=== PATIENT | female | born 1950 | race Caucasian/White ===

== ENCOUNTER → 2018-04-28 12:23 | Outpatient (CLI) | payer MEDICARE, OTHER, SELFPAY ==
--- NOTE | 2018-04-28 12:39 | STEWCON_ITS ---
Reason For Study: Family HX of CAD, Chest Pain Stress Results Protocol: Viraj Protocol Maximum Predicted HR: 154 bpm Target HR: 131 bpm% Max imum Predicted HR: 118 % DurationHeart Rate Stage (mm:ss) (bpm) BPCom ment Baseline 59 156/88 Diluted Definity 2 ML Given; No Chest Pain Viraj Protocol Stage I 3:00 12 1 170/84No Chest Pain Viraj Protocol Stage II 3:00 12 0 180/86No Chest Pain Viraj Protocol Stage III 3:00 15 3 190/82No Chest Pain Viraj Protocol Stage IV 1:00 18 1 / No Chest Pain Recovery 94 150/90 No Chest Pain Stress Duration: 10:00 mm:ss Maximum Stress HR: 181 bpmME TS: 13 Baseline Echocardiogram Findings Stress Echo Wall motion Data Resting WMIntermediate WMStress WM Resting Wall Motion Wall Motion Stress No regional wall motion No regional wall motion abnormalities noted. abnormalities noted. Ejection Fraction 55 %. Ejection Fraction 65 %. Stress Results Normal blood pressure response to exercise. Exercise was stopped due to leg pain. Interpretation Summary Exercise stress echo. Resting EKG demonstrates normal sinus rhythm with a rate of 61 bpm, resting blood pressure 156/88 mmHg. The patient exercised according to the regular Viraj protocol for a total duration of 10 minutes completing 1 minute into stage IV of the Viraj protocol. The maximum heart rate attained was 181 bpm which was 117% of maximum predicted heart rate. The maximum workload was 13.1 metabolic equivalents. At rest there were no ST or T wave changes noted suggest ischemia at peak exercise upsloping ST changes only were noted with no meet the criteria for ischemia. No clinical angina was noted occasional premature ventricular complex was present. The resting blood pressure was 156/88 with a peak blood pressure 198/84 mmHg. Resting echocardiogram demonstrates an ejection fraction of 55% performed with Definity. At peak exercise the ejection fraction improved to 65-70%. No wall motion abnormalities were present. Conclusion: Normal exercise stress test with no EKG criteria for ischemia at a high workload. Excellent functional aerobic capacity. Normal resting and stress echocardiographic images Ordering Physician: Luis A Cramer Referring Physician: Brenton Saul Performed By: Adriana Chin RDCS, RVT
== END ==
PROVIDERS: Family Provider Family Medicine; PCP Family Medicine; Referring Provider Family Medicine; Visit Provider Family Medicine
DX: R07.9 Chest pain, unspecified (principal)
CPT/HCPCS: 93017; 93350; Q9957; A4216; C8928

== ENCOUNTER → 2018-05-13 13:41 | Outpatient (CLI) | payer MEDICARE, OTHER, SELFPAY ==
[2018-05-13 13:48] VITALS: BP 153/82; PULSE 56; RESP 18; O2SAT 99; BMI 29.2
--- NOTE | 2018-05-13 13:48 | CT_ITS ---
STUDY: CT CHEST WITHOUT CONTRAST REASON FOR EXAM: Female, 68 years old. Chest pain. Cardiac over read examination. RADIATION DOSAGE (If Supplied By Facility): CTDIvol = ( 12.19 ) mGy, DLP = ( 195.04 ) mGycm TECHNIQUE: Transaxial imaging was performed without the administration of intravenous contrast material. # of Images: 73 Individualized dose optimization techniques were used for this CT. COMPARISON: None. FINDINGS: The lungs are normal. There is no demonstrated pleural abnormality. There are calcifications of the coronary arteries. There are multiple small lymph nodes within the mediastinum, which are normal in size and morphology most compatible with reactive lymph hyperplasia. Normal hilar regions. Normal unenhanced pulmonary arteries. There is atherosclerotic calcification of the aortic arch. There are degenerative changes of the thoracic spine. There is no demonstrated abnormality of the visualized upper abdomen. CT/Limited Chest CT w/CCTA IMPRESSION: No acute abnormality is seen. Electronically Signed: Alberto Pelaez MD at 13:38 EDT Tel [phone], Service support ,
--- NOTE | 2018-05-13 16:41 | CA.SCORE ---
Calcium Scoring Date of Study:: 05/13/18 Coronary Calcium Scoring: Coronary calcium score. High-resolution computed tomographic imaging of the chest was performed on 05/13/2018 with particular attention paid to the coronary arteries. Images of the examination were analyzed for the presence and extent of coronary calcification. The coronary calcium calcifications software was utilized. The patient tolerated the procedure well and there were no complications. The results of the coronary calcification analysis demonstrated that there was coronary calcification noted in the left anterior descending artery as well as the circumflex artery. The right coronary artery was free of significant coronary calcification. The total calcium Agagston score was noted to be 171 placing the patient in the 75th to the 90th percentile. The above score suggests moderate plaque burden and moderate nonobstructive coronary disease likely. Conclusion: Coronary calcium score 171 Moderate nonobstructive coronary disease likely.
--- NOTE | 2018-05-13 16:44 | CCTA_ITS ---
Calcium Scoring Date of Study:: 05/13/18 Coronary Calcium Scoring: Coronary calcium score. High-resolution computed tomographic imaging of the chest was performed on 05/13/2018 with particular attention paid to the coronary arteries. Images of the examination were analyzed for the presence and extent of coronary calc ification. The coronary calcium calcifications software was utilized. The patient tolerated the procedure well and there were no complications. The results of the coronary calcification analysis demonstrated that there was coronary calcification noted in the left anterior descending artery as well as the circumflex artery. The right coronary artery was free of significant coronary calcification. The total calcium Agagston score was noted to be 171 placing the patient in the 75th to the 90th percentile. The above score suggests moderate plaque burden and moderate nonobstructive coronary disease likely. Conclusion: Coronary calcium score 171 Moderate nonobstructive coronary disease likely.
== END ==
PROVIDERS: Family Provider Family Medicine; PCP Family Medicine; Referring Provider Family Medicine; Visit Provider Family Medicine
DX: R07.89 Other chest pain (principal); Z82.49 Family history of ischemic heart disease and other diseases of the circulatory system
CPT/HCPCS: 75571; 76380

== ENCOUNTER → 2018-05-28 10:44 | Outpatient (CLI) | payer MEDICARE, OTHER, SELFPAY ==
[2018-05-28 12:41] LABS: Cholesterol 196 mg/dL (200); Triglycerides 96 mg/dL
[2018-05-28 12:42] LABS: High Density Lipoprotein 69 mg/dL; Very Low Density Lipoprotein 19 mg/dL (5-40)
== END ==
PROVIDERS: Family Provider Family Medicine; PCP Family Medicine; Referring Provider Internal Medicine Cardiovascular Disease; Visit Provider Internal Medicine Cardiovascular Disease
DX: R07.9 Chest pain, unspecified (principal)
CPT/HCPCS: 36415; 80061

== ENCOUNTER → 2018-11-27 14:04 | Outpatient (CLI) | payer MEDICARE, OTHER, SELFPAY ==
[2018-11-27 13:06] VITALS: BMI 31.9
[2018-11-27 18:18] LABS: AST(SGOT) 20 U/L (15-37); Alanine Aminotransfer ALT/SGPT 29 U/L (13-56); Albumin, Serum 3.9 g/dL (3.2-5.0); Alkaline Phosphatase 67 U/L (45-117); Bilirubin, Direct 0.14 mg/dL (0.00-0.30); Cholesterol 198 mg/dL (200); Globulin 3.2 g/dL (2.2-4.2); High Density Lipoprotein 83 mg/dL; Protein, Total 7.1 g/dL (6.4-8.2); Triglycerides 54 mg/dL; Very Low Density Lipoprotein 11 mg/dL (5-40)
== END ==
PROVIDERS: Family Provider Family Medicine; PCP Family Medicine; Visit Provider Internal Medicine Cardiovascular Disease
DX: E78.9 Disorder of lipoprotein metabolism, unspecified (principal); I10 Essential (primary) hypertension; R07.9 Chest pain, unspecified
CPT/HCPCS: 36415; 80061; 80076

== ENCOUNTER → 2019-08-10 10:10 | Outpatient (CLI) | payer MEDICARE, OTHER, SELFPAY ==
[2018-11-27 13:06] VITALS: BMI 31.9
--- NOTE | 2019-08-10 10:15 | BI_ITS ---
MAMMOGRAPHY - BILATERAL SCREENING REASON FOR EXAM: Female, 69 years old. Routine annual screening examination. PERTINENT HISTORY: Non-contributory. TECHNIQUE: Digital bilateral breast padmini (3D mammographic acquisition) in the CC and MLO projections. 2-D mediolateral oblique (MLO) and craniocaudad (CC) views of both breasts were obtained. CAD: Full Field Digital Mammography with Computer Added Detection was performed. COMPARISON: Comparison is made with prior examination dated August 10, 2015. FINDINGS: Breast Composition: The breasts are heterogeneously dense, which may obscure small masses. There are no dominant masses or suspicious calcifications. Stable benign-appearing axillary lymph nodes. No other significant abnormalities are identified. There has been no significant change since the prior study. BI/SCREEN MAMM (CAD) W/PADMINI BILAT IMPRESSION: Stable bilateral screening mammogram. Yearly follow-up mammogram recommended. (A) ASSESSMENT CATEGORY: BIRADS Category 2: Benign. A letter regarding these results will be sent to the patient by the facility within 30 days. Approximately 10% of breast cancers are not detected by mammography. A normal mammogram should not delay biopsy of a clinically suspicious abnormality. [id number] Electronically Signed: Albreto Pelaez, at 11:20 EST , Service support ,
== END ==
PROVIDERS: Family Provider Family Medicine; PCP Family Medicine; Referring Provider Nurse Practitioner Family; Visit Provider Nurse Practitioner Family
DX: Z12.31 Encounter for screening mammogram for malignant neoplasm of breast (principal)
CPT/HCPCS: 77063; 77067

== ENCOUNTER → 2019-08-24 | Outpatient (CLI) | payer MEDICARE, OTHER, SELFPAY ==
--- NOTE | 2019-08-24 13:30 | ASPS_PTH ---
PATIENT: LUIS RYAN LOC: [facility] U#:[id number] AGE/SX: 69/F ROOM: RE08/24/[address]: Dr. Roney Cramer MD : 1950 BED: DIS: 08/24/2019 SPEC #: [id number] RECD: 08/24/19 15:49 STATUS: TUTU REJuan Jose #: [id number] EPIFANIO: 08/24/19 13:[address]: Roney Cramer DEPT: CYTOLOGY RECD BY: Justus Mendoza ENTERED: 08/25/19 09:47 SP TYPE: ASPIRATION OTHR DR: Dr. Luis A Cramer III, MD Tissues: Thyroid gland, NOS Procedures: Special Stain Group II Cytology Other HEADER OPERATION: Left thyroid FNA PRE-OP DIAGNOSIS: Left thyroid nodule TISSUE SUBMITTED: Fine needle aspiration left thyroid (10 slides) DIAGNOSIS CYTOLOGY Left thyroid nodule, FNA (smears): Benign, consistent with chronic lymphocytic thyroiditis. Adequate for evaluation. SJ:deniz 08/26/19 COMMENT Correlation with clinical, radiologic findings and appropriate follow up are necessary. CYTOLOGY STUDY Slides are reviewed. CYTOLOGY GROSS Received are ten smears labeled with the patient's name and designated per the requisition as left thyroid. Submitted for staining. / deniz 08/25/19 TC:5 CPT: 82132
[2019-08-24 13:31] VITALS: BMI 29.6
== END | disposition home or self-care (01) ==
LOC: LABSPEC 15:59
PROVIDERS: PCP Family Medicine; Referring Provider Surgery; Visit Provider Surgery
DX: E04.1 Nontoxic single thyroid nodule (principal)
CPT/HCPCS: 88161; 88313

== ENCOUNTER → 2019-11-23 09:27 | Outpatient (CLI) | payer MEDICARE, OTHER, SELFPAY ==
[2019-08-24 13:31] VITALS: BMI 29.6
[2019-11-23 10:10] LABS: AST(SGOT) 18 U/L (15-37); Alanine Aminotransfer ALT/SGPT 25 U/L (13-56); Albumin, Serum 3.7 g/dL (3.2-5.0); Alkaline Phosphatase 72 U/L (45-117); Bilirubin, Direct 0.14 mg/dL (0.00-0.30); Cholesterol 180 mg/dL (200); Globulin 3.4 g/dL (2.2-4.2); High Density Lipoprotein 76 mg/dL; Protein, Total 7.1 g/dL (6.4-8.2); Triglycerides 69 mg/dL; Very Low Density Lipoprotein 14 mg/dL (5-40)
== END ==
PROVIDERS: PCP Family Medicine; Referring Provider Internal Medicine Cardiovascular Disease; Visit Provider Internal Medicine Cardiovascular Disease
DX: E78.5 Hyperlipidemia, unspecified (principal); E04.2 Nontoxic multinodular goiter; E06.9 Thyroiditis, unspecified
CPT/HCPCS: 36415; 80061; 80076

== ENCOUNTER → 2020-01-26 08:22 | Outpatient (CLI) | payer MEDICARE, OTHER, SELFPAY ==
[2019-12-01 12:39] VITALS: BMI 30.4
--- NOTE | 2020-01-26 08:30 | BD_ITS ---
STUDY: DUAL ENERGY X-RAY ABSORPTIOMETRY / DXA REASON FOR EXAM: Female, 69 years old. 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 COMPARISON: None. FINDINGS: Lumbar Spine (L1-L4): g/cm2 (1.1) / T-score (-0.7) / Z-score (1.0) Findings are suggestive of normal bone density with a low fracture risk. Left Femur Total: g/cm2 (0.885) / T-score (-1.0) / Z-score (0.4) Left Femoral Neck: g/cm2 (0.851) / T-score (-1.3) / Z-score (0.2) Right Femur Total: g/cm2 (0.866) / T-score (-1.1) / Z-score (0.2) Right Femoral Neck: g/cm2 (0.775) / T-score (-1.9) / Z-score (0.3) BD/Dexa Bone Density Study IMPRESSION: The patient is considered osteopenic as outlined below according to World Ko Organization (WHO) criteria with a moderate fracture risk. Reference Information: The T-score is the number of standard deviations above or below the standard which is normal for young adults at their peak bone mineral density. The World Health Organization (WHO) interprets the T-scores as follows: Above -1 Normal bone density Between -1 and -2.5 Osteopenia Equal to / or below -2.5 Osteoporosis As a practical clinical guideline, osteopenia may be graded as follows: Mild -1 through -1.5 Moderate -1.6 through -2.0 Severe -2.1 through -2.4 The Z-score is the number of standard deviations above or below age-matched controls. A Z-score of less than -1.5 would be considered abnormal. References: 1. NIH Osteoporosis and Related Bone Diseases http://www.osteo.org 2. International Society for Clinical Densitometry http://www.iscd.org 3. National Osteoporosis Foundation http://www.nof.org Electronically Signed: Alberto Pelaez, at 12:58 EDT , Service support ,
== END ==
PROVIDERS: PCP Family Medicine; Referring Provider Family Medicine; Visit Provider Family Medicine
DX: M81.0 Age-related osteoporosis without current pathological fracture (principal)
CPT/HCPCS: 77080

== ENCOUNTER → 2020-02-12 12:35 | Outpatient (CLI) | payer MEDICARE, OTHER, SELFPAY ==
[2019-12-01 12:39] VITALS: BMI 30.4
[2020-02-12 15:07] LABS: Absolute Lymphocyte Count 2.05 X10^3/uL (0.83-4.51); Absolute Neutrophil Count 2.2 X10^3/uL (2.0-7.7); Basophil# 0.03 X10^3/uL; Basophil% 0.6 % (0-1); Eosinophil# 0.18 X10^3/uL; Eosinophils% 3.6 % (0-5); Hematocrit 41.6 % (37-47); Hemoglobin 13.2 g/dL (12.0-15.0); Lymphocyte # 2.05 X10^3/ul (4.0); Lymphocyte % 41.5 % (19-41); Mean Corp Hgb Conc 31.7 g/dL (32-36); Mean Corpuscular Hgb 31.1 pg (27.0-32.0); Mean Corpuscular Volume 97.9 fL (81-99); Monocyte# 0.43 X10^3/uL; Monocyte% 8.7 % (0-10); NRBC Flagged by Analyzer 0 % (0-5); Neutrophil # 2.24 X10^3/uL (2.7-7.7); Neutrophil % 45.4 % (47-70); Platelet Count 197 K/mm3 (150-450); RBC Distribution Width CV 13.1 % (11.6-14.6); RBC Distribution Width SD 46.7 fl (35.1-43.9); Red Blood Count 4.25 M/mm3 (4.2-5.4); White Blood Count 4.9 K/mm3 (4.4-11.0)
[2020-02-12 15:29] LABS: Vitamin D,25 Hydroxy 77.5 ng/mL
[2020-02-12 15:31] LABS: ALB/GLOB Ratio 1.1 RATIO (0.9-2.4); AST(SGOT) 18 U/L (15-37); Alanine Aminotransfer ALT/SGPT 32 U/L (13-56); Albumin, Serum 3.7 g/dL (3.2-5.0); Alkaline Phosphatase 78 U/L (45-117); Anion Gap 6 (5-15); BUN 16 mg/dL (7-18); BUN/Creat Ratio 23.5 RATIO (10-20); Calcium,Total 8.9 mg/dL (8.5-10.1); Chloride 103 mmol/L (98-107); Creatinine, Serum 0.68 mg/dL (0.55-1.02); EST Glomerular Filtration Rate 92 mL/min (>60); Est Glom Filt Rate - Afr Amer 111 mL/min (>60); Globulin 3.5 g/dL (2.2-4.2); Glucose 88 mg/dL (74-106); Potassium 3.7 mmol/L (3.5-5.1); Protein, Total 7.2 g/dL (6.4-8.2); Sodium Level 138 mmol/L (136-145); T4 Free Direct 1.24 ng/dL (0.76-1.46)
[2020-02-12 15:43] LABS: Microalbumin,Random Urine 6.1 mg/L (NO RANGE EST.); Microalbumin:Creatinine Ratio 5.5 mg/g CRE (<30 mg/g CRE)
[2020-02-17 03:48] LABS: Anti-Thyroglobulin AB < 1.0 IU/mL (0.0-0.9); Thyroglobulin, Serum Qt. 102.9 ng/mL (1.5-38.5); Thyroid Peroxidase AB 95 IU/mL (0-34); Zinc, Plasma or Serum 67 ug/dL (56-134)
== END ==
PROVIDERS: PCP Family Medicine; Referring Provider Family Medicine; Visit Provider Family Medicine
DX: E03.9 Hypothyroidism, unspecified (principal); E60 Dietary zinc deficiency; I10 Essential (primary) hypertension; M19.049 Primary osteoarthritis, unspecified hand
CPT/HCPCS: 36415; 80053; 82043; 82306; 82570; 84432; 84439; 84443; 84481; 84630; 85025; 86376; 86800

== ENCOUNTER 2020-02-25 07:55 | Outpatient (RCR) | payer MEDICARE, OTHER, SELFPAY ==
[2019-12-01 12:39] VITALS: BMI 30.4
--- NOTE | 2020-02-25 12:44 | HP.OTEVAL_ITS ---
Patient's Visit Information LUIS RYAN is a 69 year old F, referred to Occupational Therapy by Dr. Zack Hinds MD, with a diagnosis of bilateral hand Arthritis. Date of Evaluation: 02/25/20 Occupational Therapist: Heidy Street, OTR/Julianne, CHT - Subjective This 69 year old female was seen for OT eval with dx of bilateral hand a rthritis. pt states for the past two years. 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 pt states she is right handed. pt states she can not closer her hands with anything. pt has made accomidations for opening jars and bottle tops with use of rubber grippers. - Pain bilateral hands 3 Pain Intensity Range: 1, 6 - ROM ROM Comments: right IF mcp 0/70 PIP 0/110 DIP 0/25 left MCP 0/60 PIP 0/90 DIP 0/40. right MF MCP 0/70 PIP 0/105 DIP 0/30 Left MCP 0/75 PIP 0/80 DIP -15/40. right RF MCP 0/75 PIP 0/90 DIP 0/45 Left MCP 0/70 PIP 0/75 DIP 0/40. right LF MCP 0/80 PIP -15/85 DIP -15/40 left MCP 0/85 PIP 0/75 DIP 0/60 - Strength Judicial [employer] Clerk: right 45# left 34# Lateral Pinch: right 12# left 12# Tripod Pinch: right 10# left 10# Strength Comments: pt demo fair stregnt - Edema PIP: right MF 6.5 left 6.8 Proximal Phalanx: right 19.5cm left 18cm - Quick DASH-Disab of Arm,Shoulder& Hand Quick DASH Score: 27.2725 - Goals Goal:: pt will demo a increase in joint ROM by 10* to increase pts functional use of ADLs and IADLs by d/c Goal:: pt will report a decrease in bilateral hand pain no greater than 1/10 with ADLS and IADLS by d/c Goal:: Pt will demo understanding of edema control techniques by end of 2nd session and perform recommendations to control edema. Goal:: Pt will demonstrate understanding of joint protection and adaptive equipment to decrease joint stress while performing ADL tasks by d/c. pt will demo understanding of ergonomic tools to assist with gardening tasks by end of 2nd session. - Rehabilitation General Assessment: Pt demo with arthritis in bilateral hands that limit pts grasp on different size objects. Pt would benefit from skilled OT services 1x week for 3-4 weeks. Today therapist ed. pt on joint protection, ad. eq and light ROM ex to increase pts ROM for ADLs and IADLs. pt demo understanding and agree to POC Rehabilitation Potential: Good - Anticipated Interventions A/AAROM/PROM, Strengthening, Edema Control, Triggerpoint Release, Modalities, Orthoses, Joint Protection/Energy Conservation, Fine Motor Coord/Agustín, Education re assistive Equipment, Education re Diagnosis, Home Program - Visit Plan Frequency: 1x/Week Duration: 2-4 Weeks General Plan: therapsit will cont to work with pt on ed. pt on ad. eq. and joint protection erika. with daily occupations. Therapist provided PROM and AROM ex for digits and as pt gains increase in ROM will initiate PRE as long as strengthening does not increase pts pain. pt demo understanding. TEXT: Thank you for the opportunity to evaluate your patient. For Medicare and Medicare HMO plans, please review the plan of care and approve it. It will need to be FAXED BACK to us at [phone] for Medicare purposes. Please let me know if there are questions or concerns regarding this plan of care. Physician Signature: Date:
== END 2020-02-25 19:00 | disposition home or self-care (01) ==
LOC: OT 07:55
PROVIDERS: PCP Family Medicine; Referring Provider Family Medicine; Visit Provider Family Medicine
DX: M19.049 Primary osteoarthritis, unspecified hand (principal)
CPT/HCPCS: 97140; 97166

== ENCOUNTER → 2020-04-25 08:24 | Outpatient (CLI) | payer MEDICARE, OTHER, SELFPAY ==
[2019-12-01 12:39] VITALS: BMI 30.4
[2020-04-25 10:17] LABS: Free T3 2.5 pg/mL (2.18-3.98); T4 Free Direct 0.99 ng/dL (0.76-1.46); T4 Total, Thyroxin 7.7 ug/dL (4.8-13.9); Thyroid Stim Hormone (TSH) 1.32 uIU/mL (0.358-3.74)
[2020-04-26 21:12] LABS: Anti-Thyroglobulin AB < 1.0 IU/mL (0.0-0.9); Thyroid Peroxidase AB 88 IU/mL (0-34)
== END ==
PROVIDERS: PCP Family Medicine; Referring Provider Family Medicine; Visit Provider Family Medicine
DX: E04.1 Nontoxic single thyroid nodule (principal)
CPT/HCPCS: 36415; 84432; 84436; 84439; 84443; 84481; 86376; 86800

== ENCOUNTER → 2020-07-04 09:57 | Outpatient (CLI) | payer MEDICARE, OTHER, SELFPAY ==
[2019-12-01 12:39] VITALS: BMI 30.4
--- NOTE | 2020-07-04 09:58 | US_ITS ---
STUDY: THYROID ULTRASOUND REASON FOR EXAM: Female, 70 years old. MNG TECHNIQUE: Ultrasound evaluation of the thyroid was performed with real-time and static varghese-scale imaging. COMPARISON: None. FINDINGS: RIGHT LOBE: The right lobe of the thyroid gland measures 2.8 cm x 0.9 cm x 0.9 cm. There is a heterogeneous echotexture. There are no demonstrated solid, cystic or complex lesions. LEFT LOBE: The left lobe of the thyroid gland measures 2.7 cm x 2 cm x 1.5 cm. There is a heterogeneous echotexture. There is a 2.1 cm x 1.8 cm x 1.2 cm heterogeneous hypoechoic solid nodule in the left lobe of thyroid. Intranodular and perinodular increased vascularity is seen. There is also evidence of a slightly echogenic nodule with posterior shadowing measuring 7 mm x 6 mm x 6 mm. ISTHMUS: The isthmus measures 2.0 mm. The regional lymph nodes are normal. US/Thyroid IMPRESSION: Dominant heterogeneous hypoechoic solid nodule in the left lobe of the thyroid with increased nodular and perinodular vascularity. This measures 2.1 cm x 1.8cm x 1.2 cm. A biopsy recommended. Electronically Signed: Alberto Pelaez, at 13:41 EST , Service support ,
== END ==
PROVIDERS: PCP Family Medicine; Referring Provider Surgery; Visit Provider Surgery
DX: E04.2 Nontoxic multinodular goiter (principal)
CPT/HCPCS: 76536

== ENCOUNTER → 2020-07-21 11:11 | Outpatient (CLI) | payer MEDICARE, OTHER, SELFPAY | PROVIDERS: PCP Family Medicine; Referring Provider Family Medicine; Visit Provider Family Medicine | DX: R39.15 Urgency of urination (principal) | CPT/HCPCS: 87086; 87088 ==

== ENCOUNTER → 2020-07-27 | Outpatient (CLI) | payer MEDICARE, OTHER, SELFPAY ==
--- NOTE | 2020-07-27 14:00 | LES_PTH ---
PATIENT: LUIS RYAN LOC: [facility] U#:[id number] AGE/SX: 70/F ROOM: RE07/27/[address]: Dr. Roney Cramer MD : 1950 BED: DIS: 07/27/2020 SPEC #: [id number] RECD: 07/27/20 14:43 STATUS: TUTU REQ #: [id number] EPIFANIO: 07/27/20 14:[address]: Roney Cramer DEPT: SURGICAL PATHOLOGY RECD BY: Juni Phelan ENTERED: 07/28/20 06:52 SP TYPE: Lesion OTHR DR: Dr. 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 Perineural invasion not seen. MI:deniz 08/01/2020 COMMENT Case has been reviewed in consultation with Dr. Fournier who concurs with the above diagnosis. IDC:AM MICROSCOPIC DESCRIPTION Slides are reviewed. GROSS DESCRIPTION Received in fixative is one container labeled with the patient's name and designated right clavicle. The specimen consists of an ellipse of light estrada skin with attached soft tissue measuring 1.5 x 0.7 x 0.5 cm. The cutaneous surface displays an elevated light estrada lesion measuring 6 mm in greatest dimension. The specimen is inked, serially sectioned and totally submitted in one cassette. / AM:deniz 07/28/20 TC:0 CPT: 94923
== END | disposition home or self-care (01) ==
LOC: LABSPEC 14:49
PROVIDERS: PCP Family Medicine; Visit Provider Surgery
DX: C44.529 Squamous cell carcinoma of skin of other part of trunk (principal)
CPT/HCPCS: 88305

== ENCOUNTER → 2020-08-15 13:14 | Outpatient (CLI) | payer MEDICARE, OTHER, SELFPAY ==
[2019-12-01 12:39] VITALS: BMI 30.4
--- NOTE | 2020-08-15 13:17 | BI_ITS ---
MAMMOGRAPHY - BILATERAL SCREENING REASON FOR EXAM: Female, 70 years old. Routine annual screening examination. PERTINENT HISTORY: Non-contributory. TECHNIQUE: Digital bilateral breast padmini (3D mammographic acquisition) in the CC and MLO projections. 2-D mediolateral oblique (MLO) and craniocaudad (CC) views of both breasts were obtained. CAD: Full Field Digital Mammography with Computer Added Detection was performed. COMPARISON: Comparison is made with prior examination dated 08/10/2019 FINDINGS: Breast Composition: The breasts are heterogeneously dense, which may obscure small masses. There are no dominant masses or suspicious calcifications. Stable benign-appearing small axillary lymph nodes. No other significant abnormalities are identified. There has been no significant change since the prior study. BI/SCRN MAMM (CAD)W/PADMINI BILAT IMPRESSION: Stable bilateral screening mammogram. Yearly follow-up mammogram recommended. (A) ASSESSMENT CATEGORY: BIRADS Category 2: Benign. A letter regarding these results will be sent to the patient by the facility within 30 days. Approximately 10% of breast cancers are not detected by mammography. A normal mammogram should not delay biopsy of a clinically suspicious abnormality. [id number] Electronically Signed: Alberto Pelaez MD at 14:04 EST , Service support ,
== END ==
PROVIDERS: PCP Family Medicine; Referring Provider Family Medicine; Visit Provider Family Medicine
DX: Z12.31 Encounter for screening mammogram for malignant neoplasm of breast (principal)
CPT/HCPCS: 77063; 77067

== ENCOUNTER → 2020-11-21 08:07 | Outpatient (CLI) | payer MEDICARE, OTHER, SELFPAY ==
[2020-11-21 08:45] LABS: AST(SGOT) 21 U/L (15-37); Alanine Aminotransfer ALT/SGPT 30 U/L (13-56); Albumin, Serum 3.6 g/dL (3.2-5.0); Alkaline Phosphatase 79 U/L (45-117); Bilirubin, Direct 0.17 mg/dL (0.00-0.30); Cholesterol 178 mg/dL (200); Globulin 3.3 g/dL (2.2-4.2); High Density Lipoprotein 72 mg/dL; Protein, Total 6.9 g/dL (6.4-8.2); Triglycerides 73 mg/dL; Very Low Density Lipoprotein 15 mg/dL (5-40)
== END ==
PROVIDERS: PCP Family Medicine; Referring Provider Internal Medicine Cardiovascular Disease; Visit Provider Internal Medicine Cardiovascular Disease
DX: E78.9 Disorder of lipoprotein metabolism, unspecified (principal); E78.5 Hyperlipidemia, unspecified
CPT/HCPCS: 36415; 80061; 80076

== ENCOUNTER → 2021-01-20 09:01 | Outpatient (CLI) | payer MEDICARE, OTHER, SELFPAY ==
[2020-12-01 12:23] VITALS: BMI 29.6
[2021-01-20 10:43] LABS: Ferritin 72 ng/mL (8-252); Free T3 2.4 pg/mL (2.18-3.98); T4 Free Direct 1.07 ng/dL (0.76-1.46); Thyroid Stim Hormone (TSH) 2.83 uIU/mL (0.358-3.74)
[2021-01-20 10:54] LABS: Vitamin D,25 Hydroxy 56.1 ng/mL
[2021-01-25 15:49] LABS: Zinc, Plasma or Serum 84 ug/dL (44-115)
== END ==
PROVIDERS: PCP Family Medicine; Referring Provider Family Medicine; Visit Provider Family Medicine
DX: R53.83 Other fatigue (principal)
CPT/HCPCS: 82306; 82728; 84439; 84443; 84481; 84630

== ENCOUNTER → 2021-07-17 09:52 | Outpatient (CLI) | payer MEDICARE, OTHER, SELFPAY ==
--- NOTE | 2021-07-17 09:53 | US_ITS ---
STUDY: THYROID ULTRASOUND REASON FOR EXAM: Female, 71 years old. Thyroid nodule. TECHNIQUE: Ultrasound evaluation of the thyroid was performed with real-time and static varghese-scale imaging. COMPARISON: Comparison is made with prior examination dated 07/04/2020. FINDINGS: RIGHT LOBE: The right lobe of the thyroid gland measures 3.5 cm x 0.8 cm x 0.9 cm. There is a homogeneous echotexture. There are no demonstrated solid, cystic or complex lesions. LEFT LOBE: The left lobe of the thyroid gland measures 3.6 cm x 1.6 cm x 1.5 cm. There is a homogeneous echotexture. Once again, there is a 2.1 cm x 1.7 cm x 1.4 cm heterogeneous solid nodule in the left lobe. Intranodular and perinodular vascularity is seen. Stable 6 mm x 6 mm x 5 mm slightly echogenic nodule with posterior acoustical shadowing suggestive of possible calcification. ISTHMUS: The isthmus measures 3 mm. The regional lymph nodes are normal. US/Thyroid IMPRESSION: Stable nodules in the left lobe of the thyroid. Electronically Signed: Alberto Pelaez MD at 13:10 EST , Service support ,
== END ==
PROVIDERS: PCP Family Medicine; Referring Provider Surgery; Visit Provider Surgery
DX: E04.2 Nontoxic multinodular goiter (principal)
CPT/HCPCS: 76536

== ENCOUNTER 2021-08-11 08:02 | Outpatient (CLI) | payer MEDICARE, OTHER, SELFPAY ==
[2021-08-11 10:37] LABS: ALB/GLOB Ratio 1.1 RATIO (0.9-2.4); AST(SGOT) 15 U/L (15-37); Alanine Aminotransfer ALT/SGPT 26 U/L (13-56); Albumin, Serum 3.7 g/dL (3.2-5.0); Alkaline Phosphatase 71 U/L (45-117); Anion Gap 3 (5-15); BUN 18 mg/dL (7-18); BUN/Creat Ratio 24.8 RATIO (10-20); Calcium,Total 9.2 mg/dL (8.5-10.1); Chloride 100 mmol/L (98-107); Cholesterol 191 mg/dL (200); Creatinine, Serum 0.73 mg/dL (0.55-1.02); EST Glomerular Filtration Rate 85 mL/min (>60); Est Glom Filt Rate - Afr Amer 102 mL/min (>60); Globulin 3.5 g/dL (2.2-4.2); Glucose 89 mg/dL (74-106); High Density Lipoprotein 76 mg/dL; Potassium 3.8 mmol/L (3.5-5.1); Protein, Total 7.2 g/dL (6.4-8.2); Sodium Level 135 mmol/L (136-145); T4 Free Direct 1.15 ng/dL (0.76-1.46); Thyroid Stim Hormone (TSH) 0.69 uIU/mL (0.358-3.74); Triglycerides 80 mg/dL; Very Low Density Lipoprotein 16 mg/dL (5-40)
== END 2021-08-11 23:59 | disposition short-term general hospital (02) ==
LOC: MTLAB 08:03
PROVIDERS: PCP Family Medicine; Referring Provider Family Medicine; Visit Provider Family Medicine
DX: I10 Essential (primary) hypertension (principal); E04.1 Nontoxic single thyroid nodule
CPT/HCPCS: 36415; 80053; 80061; 84439; 84443

== ENCOUNTER → 2022-02-12 | Outpatient (CLI) | payer MEDICARE, OTHER, SELFPAY ==
[2022-02-12 10:21] LABS: AST(SGOT) 22 U/L (15-37); Alanine Aminotransfer ALT/SGPT 28 U/L (13-56); Albumin, Serum 3.6 g/dL (3.2-5.0); Alkaline Phosphatase 66 U/L (45-117); Anion Gap 6 (5-15); BUN 12 mg/dL (7-18); BUN/Creat Ratio 16.2 RATIO (10-20); Calcium,Total 9.1 mg/dL (8.5-10.1); Chloride 102 mmol/L (98-107); Creatinine, Serum 0.74 mg/dL (0.55-1.02); EST Glomerular Filtration Rate 82 mL/min (>60); Est Glom Filt Rate - Afr Amer 100 mL/min (>60); Globulin 3.5 g/dL (2.2-4.2); Glucose 92 mg/dL (74-106); Potassium 3.8 mmol/L (3.5-5.1); Protein, Total 7.1 g/dL (6.4-8.2); Sodium Level 138 mmol/L (136-145); Thyroid Stim Hormone (TSH) 0.18 uIU/mL (0.358-3.74)
[2022-02-12 16:25] LABS: Microalbumin,Random Urine < 5.0 mg/L (NO RANGE EST.)
[2022-02-15 11:02] LABS: Free T3 2.7 pg/mL (2.18-3.98)
[2022-02-15 14:02] LABS: Cholesterol 189 mg/dL (200); High Density Lipoprotein 69 mg/dL; Triglycerides 60 mg/dL; Very Low Density Lipoprotein 12 mg/dL (5-40)
== END | disposition home or self-care (01) ==
PROVIDERS: PCP Family Medicine; Referring Provider Family Medicine; Visit Provider Family Medicine
DX: I10 Essential (primary) hypertension (principal); E03.9 Hypothyroidism, unspecified
CPT/HCPCS: 36415; 80053; 80061; 82043; 82570; 84439; 84443; 84481

== ENCOUNTER → 2022-02-16 | Outpatient (CLI) | payer MEDICARE, OTHER, SELFPAY ==
[2022-02-16 10:21] LABS: Cholesterol 182 mg/dL (200); Free T3 2.5 pg/mL (2.18-3.98); High Density Lipoprotein 68 mg/dL; T4 Free Direct 1.25 ng/dL (0.76-1.46)
[2022-02-17 08:20] LABS: LDL, Direct 120295 115 mg/dL (0-99)
== END | disposition home or self-care (01) ==
LOC: MTLAB 08:09
PROVIDERS: PCP Family Medicine; Referring Provider Family Medicine; Visit Provider Family Medicine
DX: E78.5 Hyperlipidemia, unspecified (principal)
CPT/HCPCS: 36415; 82465; 83718; 83721; 84439; 84481

== ENCOUNTER → 2022-04-23 | Outpatient (CLI) | payer MEDICARE, OTHER, SELFPAY ==
[2022-04-23 12:57] LABS: T4 Free Direct 1.13 ng/dL (0.76-1.46); Thyroid Stim Hormone (TSH) 0.46 uIU/mL (0.358-3.74)
[2022-04-25 10:53] LABS: Anti-Thyroglobulin AB < 1.0 IU/mL (0.0-0.9)
[2022-04-25 10:54] LABS: Thyroglobulin, Serum Qt. 76.9 ng/mL (1.5-38.5)
== END | disposition home or self-care (01) ==
PROVIDERS: PCP Family Medicine; Referring Provider Family Medicine; Visit Provider Family Medicine
DX: E03.9 Hypothyroidism, unspecified (principal); E04.1 Nontoxic single thyroid nodule
CPT/HCPCS: 36415; 84432; 84439; 84443; 86800

== ENCOUNTER → 2022-08-13 | Outpatient (CLI) | payer MEDICARE, OTHER, SELFPAY ==
[2022-08-13 10:20] LABS: Vitamin D,25 Hydroxy 72.5 ng/mL
[2022-08-13 10:55] LABS: ALB/GLOB Ratio 1.1 RATIO (0.9-2.4); AST(SGOT) 17 U/L (15-37); Alanine Aminotransfer ALT/SGPT 29 U/L (13-56); Albumin, Serum 3.8 g/dL (3.2-5.0); Alkaline Phosphatase 64 U/L (45-117); Anion Gap 6 (5-15); BUN 15 mg/dL (7-18); BUN/Creat Ratio 18.9 RATIO (10-20); Calcium,Total 9.2 mg/dL (8.5-10.1); Chloride 102 mmol/L (98-107); EST Glomerular Filtration Rate 76 mL/min (>60); Est Glom Filt Rate - Afr Amer 92 mL/min (>60); Free T3 1.9 pg/mL (2.18-3.98); Globulin 3.5 g/dL (2.2-4.2); Glucose 102 mg/dL (74-106); Potassium 3.9 mmol/L (3.5-5.1); Protein, Total 7.3 g/dL (6.4-8.2); Sodium Level 138 mmol/L (136-145); T4 Free Direct 0.95 ng/dL (0.76-1.46)
== END | disposition home or self-care (01) ==
PROVIDERS: PCP Family Medicine; Referring Provider Family Medicine; Visit Provider Family Medicine
DX: I10 Essential (primary) hypertension (principal); E03.9 Hypothyroidism, unspecified; L60.9 Nail disorder, unspecified
CPT/HCPCS: 36415; 80053; 82306; 84439; 84443; 84481

== ENCOUNTER → 2022-12-03 | Outpatient (CLI) | payer MEDICARE, OTHER, SELFPAY ==
--- NOTE | 2022-12-03 09:45 | RAD_ITS ---
STUDY: X-RAY CHEST REASON FOR EXAM: Female, 72 years old. chest pain TECHNIQUE: Frontal and lateral views of the chest. COMPARISON: None. FINDINGS: The lungs are clear and expanded. There is no demonstrated pleural abnormality. Normal size heart. Normal mediastinum and tony. Normal visualized pulmonary arteries. There is atherosclerotic tortuosity of the aortic arch and descending thoracic aorta. There are diffuse degenerative changes of the visualized thoracic spine. Normal visualized ribs, clavicles, and shoulders. There is no demonstrated abnormality of the visualized soft tissue structures of the upper abdomen. RAD/Chest PA and Lateral IMPRESSION: No definite acute or significant abnormality seen. Electronically Signed: Golden Khan MD at 20:59 EDT ,
[2022-12-03 10:56] LABS: Absolute Lymphocyte Count 1.56 X10^3/uL (0.83-4.51); Absolute Neutrophil Count 1.9 X10^3/uL (2.0-7.7); Basophil# 0.04 X10^3/uL; Eosinophil# 0.07 X10^3/uL; Eosinophils% 1.7 % (0-5); Hematocrit 39.7 % (37-47); Lymphocyte # 1.56 X10^3/ul (0.83-4.51); Lymphocyte % 38.2 % (19-41); Mean Corp Hgb Conc 32.7 g/dL (32-36); Mean Corpuscular Hgb 32.2 pg (27.0-32.0); Mean Corpuscular Volume 98.3 fL (81-99); Mean Platelet Vol. 10.1 fl (6.2-12.0); Monocyte# 0.53 X10^3/uL; NRBC Flagged by Analyzer 0 % (0-5); Neutrophil # 1.87 X10^3/uL (2.7-7.7); Neutrophil % 45.9 % (47-70); Platelet Count 194 K/mm3 (150-450); RBC Distribution Width CV 12.3 % (11.6-14.6); RBC Distribution Width SD 44.5 fl (35.1-43.9); Red Blood Count 4.04 M/mm3 (4.2-5.4); White Blood Count 4.1 K/mm3 (4.4-11.0)
[2022-12-03 11:32] LABS: Anion Gap 5 (5-15); BUN 16 mg/dL (7-18); BUN/Creat Ratio 23.2 RATIO (10-20); Calcium,Total 9.4 mg/dL (8.5-10.1); Chloride 104 mmol/L (98-107); Creatinine, Serum 0.69 mg/dL (0.55-1.02); EST Glomerular Filtration Rate 89 mL/min (>60); Est Glom Filt Rate - Afr Amer 108 mL/min (>60); Glucose 86 mg/dL (74-106); Potassium 3.7 mmol/L (3.5-5.1); Sodium Level 141 mmol/L (136-145)
[2022-12-03 11:33] LABS: Cholesterol 191 mg/dL (200); Free T3 2.3 pg/mL (2.18-3.98); High Density Lipoprotein 78 mg/dL; T4 Free Direct 1.06 ng/dL (0.76-1.46); Thyroid Stim Hormone (TSH) 0.86 uIU/mL (0.358-3.74); Triglycerides 87 mg/dL; Very Low Density Lipoprotein 17 mg/dL (5-40)
== END | disposition home or self-care (01) ==
PROVIDERS: Family Medicine; Internal Medicine Cardiovascular Disease; PCP Family Medicine; Referring Provider Family Medicine; Visit Provider Family Medicine
DX: I10 Essential (primary) hypertension (principal); R07.89 Other chest pain; E78.5 Hyperlipidemia, unspecified; E06.3 Autoimmune thyroiditis
CPT/HCPCS: 36415; 71046; 80048; 80061; 84439; 84443; 84481; 85025

== ENCOUNTER 2022-12-17 07:23 | Day surgery (SDC) | payer MEDICARE, OTHER, SELFPAY ==
[2022-12-14 09:36] VITALS: BMI 27.6
--- NOTE | 2022-12-17 09:48 | CL.D_ITS ---
Patient Name: LUIS RYAN Study Date: 12/17/2022 Performing: Brenton Saul MD Ht: 62 inches 157.48 cm : 1950 Wt: 150.99 lbs 68.49 kg Age: 72 Gender: female BSA: 1.7 PROCEDURE(S) PERFORMED DC01-(82118)LHC/COR/LV CLINICAL PROFILE AND INDICATIONS Indications: Suspected CAD Heart Failure: None Stress/Imaging Coronary Calcium Score: Yes Calcium Score: 270Calcium Score: 270 Angina Classification Anginal Classification w/in 2 Weeks: No symptoms CAD Presentations: No Sxs, no angina. CONCLUSIONS Non obstructive coronary arteries Normal LV size, wall motion,and systolic function RECOMMENDATIONS Risk factor modification DESCRIPTION OF PROCEDURE The patient arrived to the procedure lab. The risks and benefits of the procedure as well as a full description of our services here and current unavailability of surgical backup were fully explained to the patient and/or their significant other prior to the catheterization. The Timeout was completed, verifying the correct patient and procedure. The patient's procedural site was prepped and draped in the usual fashion. Local anesthetic was given subcutaneously to right radial region with Lidocaine 2%. Using a modified Seldinger technique, arterial access was obtained via the right radial artery, a 6Fr sheath was inserted. Left Coronary Artery selective angiography was performed in multiple views using a 5 Fr. 4.0 Kinderhook catheter. Right Coronary Artery selective angiography was then performed in multiple views using a 5 Fr. 4.0 Kinderhook catheter. Left Ventriculography was performed in BRANDT projection using a 5 Fr. Pigtail catheter. LV to AO pullback pressures were then recorded. CORONARY ANGIOGRAPHY DOMINANCE: Right Dominant LEFT HEART ASSESSMENT Left Ventricular Ejection Fraction: by LV Gram 70 % Normal LV wall motion Normal Left Ventricular systolic function LEFT MAIN: Angiographically normal LEFT ANTERIOR DESCENDING ARTERY: Moderate calcification, Proximal to mid segment has a smooth 40% stenosis CIRCUMFLEX ARTERY: Angiographically normal RIGHT CORONARY ARTERY: Angiographically normal COMPLICATIONS No Complications PROCEDURE MEDICATIONS Fentanyl 50 mcg IV Versed 1 mg IV Versed 1 mg IV Oxygen: 2 L/min via nasal cannula Heparin given IA 12/17/2022 09:16:35 Verapamil 2.5mg, Ntg 100mcgs, 3000 units of Heparin given IA 12/17/2022 09:16:35 SUMMARY OF HEMODYNAMIC DATA Time AIR REST ECG 07:51:50 AO 116/54 (81) SA 09:28:19 LV 133/-8, 0 09:31:16 LV 130/-7, 1 09:31:24 LV 127/-8, 4 09:31:56 LVp 116/-8, 3 09:32:00 AOp 126/50 (80) 09:32:07 Signed By Brenton Saul MD On 12/17/2022 09:47:30 Brenton Saul MD
== END 2022-12-17 11:30 | disposition home or self-care (01) ==
LOC: CLSP 07:24
PROVIDERS: PCP Family Medicine; Referring Provider Internal Medicine Cardiovascular Disease; Visit Provider Internal Medicine Cardiovascular Disease
DX: I25.10 Atherosclerotic heart disease of native coronary artery without angina pectoris (principal); E66.9 Obesity, unspecified; E03.9 Hypothyroidism, unspecified; I10 Essential (primary) hypertension; Z79.82 Long term (current) use of aspirin; Z79.899 Other long term (current) drug therapy
CPT/HCPCS: 93458; 99152; 99153; J7040; Q9967; C1769; C1894

== ENCOUNTER → 2023-04-08 | Outpatient (CLI) | payer MEDICARE, OTHER, SELFPAY ==
[2023-04-08 12:54] LABS: ALB/GLOB Ratio 1.1 RATIO (0.9-2.4); AST(SGOT) 15 U/L (15-37); Alanine Aminotransfer ALT/SGPT 23 U/L (13-56); Albumin, Serum 3.6 g/dL (3.2-5.0); Alkaline Phosphatase 72 U/L (45-117); Anion Gap 8 (5-15); BUN 16 mg/dL (7-18); BUN/Creat Ratio 19.6 RATIO (10-20); Calcium,Total 8.7 mg/dL (8.5-10.1); Chloride 101 mmol/L (98-107); Cholesterol 179 mg/dL (200); Creatinine, Serum 0.82 mg/dL (0.55-1.02); EST Glomerular Filtration Rate 73 mL/min (>60); Est Glom Filt Rate - Afr Amer 89 mL/min (>60); Free T3 2.6 pg/mL (2.18-3.98); Globulin 3.3 g/dL (2.2-4.2); Glucose 90 mg/dL (74-106); High Density Lipoprotein 77 mg/dL; Potassium 3.8 mmol/L (3.5-5.1); Protein, Total 6.9 g/dL (6.4-8.2); Sodium Level 136 mmol/L (136-145); T4 Free Direct 0.99 ng/dL (0.76-1.46); Thyroid Stim Hormone (TSH) 0.57 uIU/mL (0.358-3.74); Triglycerides 59 mg/dL; Very Low Density Lipoprotein 12 mg/dL (5-40)
== END | disposition home or self-care (01) ==
PROVIDERS: PCP Family Medicine; Referring Provider Family Medicine; Visit Provider Family Medicine
DX: E03.9 Hypothyroidism, unspecified (principal); I10 Essential (primary) hypertension; E78.5 Hyperlipidemia, unspecified
CPT/HCPCS: 36415; 80053; 80061; 82043; 82570; 84439; 84443; 84481

== ENCOUNTER 2023-04-10 09:44 | Outpatient (CLI) | payer MEDICARE, OTHER, SELFPAY ==
[2023-04-10 13:22] LABS: Microalbumin,Random Urine < 5.0 mg/L (NO RANGE EST.)
== END 2023-04-10 23:59 | disposition home or self-care (01) ==
PROVIDERS: PCP Family Medicine; Referring Provider Family Medicine; Visit Provider Family Medicine
DX: E03.9 Hypothyroidism, unspecified (principal); I10 Essential (primary) hypertension
CPT/HCPCS: 82043; 82570

== ENCOUNTER → 2023-04-30 | Outpatient (CLI) | payer MEDICARE, OTHER, SELFPAY ==
--- NOTE | 2023-04-30 08:32 | BI_ITS ---
MAMMOGRAPHY - BILATERAL SCREENING REASON FOR EXAM: Female, 73 years old. Routine annual screening examination. PERTINENT HISTORY: Non-contributory. TECHNIQUE: Digital bilateral breast padmini (3D mammographic acquisition) in the CC and MLO projections. 2-D mediolateral oblique (MLO) and craniocaudad (CC) views of both breasts were obtained. CAD: Full Field Digital Mammography with Computer Added Detection was performed. COMPARISON: Comparison is made with prior study dated August 15, 2020 and August 10, 2019. FINDINGS: Breast Composition: The breasts are heterogeneously dense, which may obscure small masses. There are no dominant masses or suspicious calcifications. No other significant abnormalities are identified. There has been no significant change since the prior study. BI/SCRN MAMM (CAD)W/PADMINI BILAT IMPRESSION: Stable bilateral screening mammogram. Yearly follow-up mammogram recommended. (A) ASSESSMENT CATEGORY: BIRADS Category 1: Negative. A letter regarding these results will be sent to the patient by the facility within 30 days. Approximately 10% of breast cancers are not detected by mammography. A normal mammogram should not delay biopsy of a clinically suspicious abnormality. [id number] Electronically Signed: Alberto Pelaez MD at 9:33 EDT ,
== END | disposition home or self-care (01) ==
LOC: OPBI 08:31
PROVIDERS: PCP Family Medicine; Referring Provider Family Medicine; Visit Provider Family Medicine
DX: Z12.31 Encounter for screening mammogram for malignant neoplasm of breast (principal)
CPT/HCPCS: 77063; 77067

== ENCOUNTER → 2023-10-14 | Outpatient (CLI) | payer MEDICARE, OTHER, SELFPAY ==
[2023-10-14 11:34] LABS: Anion Gap 7 (5-15); BUN 11 mg/dL (7-18); Calcium,Total 9.2 mg/dL (8.5-10.1); Chloride 105 mmol/L (98-107); Creatinine, Serum 0.73 mg/dL (0.55-1.02); EST Glomerular Filtration Rate 83 mL/min (>60); Est Glom Filt Rate - Afr Amer 100 mL/min (>60); Free T3 2.2 pg/mL (2.18-3.98); Glucose 87 mg/dL (74-106); Potassium 3.7 mmol/L (3.5-5.1); Sodium Level 140 mmol/L (136-145); T4 Free Direct 0.96 ng/dL (0.76-1.46); Thyroid Stim Hormone (TSH) 1.24 uIU/mL (0.358-3.74)
== END | disposition home or self-care (01) ==
PROVIDERS: PCP Family Medicine; Referring Provider Family Medicine; Visit Provider Family Medicine
DX: I10 Essential (primary) hypertension (principal); E03.9 Hypothyroidism, unspecified
CPT/HCPCS: 36415; 80048; 84439; 84443; 84481

== ENCOUNTER → 2024-02-03 | Outpatient (CLI) | payer MEDICARE, OTHER, SELFPAY ==
[2024-02-03 12:41] LABS: AST(SGOT) 24 U/L (15-37); Alanine Aminotransfer ALT/SGPT 27 U/L (13-56); Albumin, Serum 3.9 g/dL (3.2-5.0); Alkaline Phosphatase 73 U/L (45-117); Bilirubin, Direct 0.23 mg/dL (0.00-0.30); Cholesterol 188 mg/dL (200); Globulin 3.4 g/dL (2.2-4.2); High Density Lipoprotein 84 mg/dL; Protein, Total 7.3 g/dL (6.4-8.2); Triglycerides 51 mg/dL; Very Low Density Lipoprotein 10 mg/dL (5-40)
== END | disposition home or self-care (01) ==
LOC: LAB 11:43
PROVIDERS: PCP Family Medicine; Referring Provider Internal Medicine Cardiovascular Disease; Visit Provider Internal Medicine Cardiovascular Disease
DX: E78.00 Pure hypercholesterolemia, unspecified (principal); R07.89 Other chest pain; I10 Essential (primary) hypertension; E78.9 Disorder of lipoprotein metabolism, unspecified
CPT/HCPCS: 36415; 80061; 80076

== ENCOUNTER → 2024-04-15 | Outpatient (CLI) | payer MEDICARE, OTHER, SELFPAY ==
[2024-04-15 10:40] LABS: ALB/GLOB Ratio 1.1 RATIO (0.9-2.4); AST(SGOT) 16 U/L (15-37); Alanine Aminotransfer ALT/SGPT 25 U/L (13-56); Albumin, Serum 3.6 g/dL (3.2-5.0); Alkaline Phosphatase 79 U/L (45-117); Anion Gap 5 (5-15); BUN 11 mg/dL (7-18); BUN/Creat Ratio 15.2 RATIO (10-20); Calcium,Total 9.3 mg/dL (8.5-10.1); Chloride 104 mmol/L (98-107); Cholesterol 179 mg/dL (200); Creatinine, Serum 0.72 mg/dL (0.55-1.02); EST Glomerular Filtration Rate 84 mL/min (>60); Est Glom Filt Rate - Afr Amer 102 mL/min (>60); Globulin 3.3 g/dL (2.2-4.2); Glucose 95 mg/dL (74-106); High Density Lipoprotein 91 mg/dL; Potassium 4.3 mmol/L (3.5-5.1); Protein, Total 6.9 g/dL (6.4-8.2); Sodium Level 138 mmol/L (136-145); T4 Free Direct 1.12 ng/dL (0.76-1.46); Thyroid Stim Hormone (TSH) 0.364 uIU/mL (0.358-3.740); Triglycerides 73 mg/dL; Very Low Density Lipoprotein 15 mg/dL (5-40)
[2024-04-15 13:19] LABS: Microalbumin,Random Urine < 5.0 mg/L (NO RANGE EST.)
== END | disposition home or self-care (01) ==
LOC: LAB 09:11
PROVIDERS: PCP Family Medicine; Referring Provider Family Medicine; Visit Provider Family Medicine
DX: I10 Essential (primary) hypertension (principal); E78.5 Hyperlipidemia, unspecified; E03.9 Hypothyroidism, unspecified
CPT/HCPCS: 36415; 80053; 80061; 82043; 82570; 84439; 84443

== ENCOUNTER → 2024-06-04 | Outpatient (CLI) | payer MEDICARE, OTHER, SELFPAY | END | disposition home or self-care (01) | LOC: OPBD 15:24 | PROVIDERS: PCP Family Medicine; Referring Provider Nurse Practitioner Family; Visit Provider Nurse Practitioner Family | DX: M81.0 Age-related osteoporosis without current pathological fracture (principal) | CPT/HCPCS: 77080 ==

== ENCOUNTER → 2024-10-08 | Outpatient (CLI) | payer MEDICARE, OTHER, SELFPAY ==
[2024-10-08 12:07] LABS: AST(SGOT) 22 U/L (<=31); Alanine Aminotransfer ALT/SGPT 16 U/L (<=34); Albumin, Serum 4.2 g/dL (3.4-4.8); Alkaline Phosphatase 68 U/L (35-104); Bilirubin, Direct 0.24 mg/dL (0.00-0.30); Cholesterol 178 mg/dL (<=200); Globulin 2.6 g/dL (2.2-4.2); High Density Lipoprotein 72 mg/dL; Low Density Lipoprotein Calc. 93 mg/dL; Protein, Total 6.8 g/dL (5.9-8.4); Total Bilirubin 0.49 mg/dL (0.00-1.30); Triglycerides 64 mg/dL; Very Low Density Lipoprotein 13 mg/dL (5-40); cholesterol:hdl ratio screen 2.47
[2024-10-08 13:37] LABS: Anion Gap 12 (5-15); BUN 13 mg/dL (4-19); BUN/Creat Ratio 19.2 RATIO (10-20); Calcium,Total 9.5 mg/dL (7.6-11.0); Carbon Dioxide 25.9 mmol/L (21.0-32.0); Chloride 101 mmol/L (98-108); Creatinine, Serum 0.67 mg/dL (0.70-1.20); EST Glomerular Filtration Rate 93 (>60); Glucose 84 mg/dL (70-99); Potassium 3.9 mmol/L (3.3-5.1); Sodium Level 139 mmol/L (133-145)
== END | disposition home or self-care (01) ==
LOC: MTLAB 08:09
PROVIDERS: Physician Assistant Medical; PCP Family Medicine; Referring Provider Family Medicine; Visit Provider Family Medicine
DX: I10 Essential (primary) hypertension (principal); E78.00 Pure hypercholesterolemia, unspecified
CPT/HCPCS: 36415; 80048; 80061; 80076

== ENCOUNTER → 2024-10-19 | Outpatient (CLI) | payer MEDICARE, OTHER, SELFPAY ==
--- NOTE | 2024-10-19 11:48 | US_ITS ---
PROCEDURE: THYROID 10/19/2024 REASON FOR EXAM: 74-year-old female, follow-up E04.1-NONTOXIC SINGLE THYROID NODULE TECHNIQUE: Thyroid ultrasound COMPARISON: Thyroid ultrasound 07/17/2021. FINDINGS: Right thyroid lobe measures 2.3 x 0.7 x 0.7 cm. Left thyroid lobe measures 1.8 x 1.0 x 0.7 cm. Isthmus thickness is0.1 cm. Thyroid Size: Normal Background Echotexture: Heterogeneous Thyroid Nodules: One isthmus/left thyroid nodule measured. The nodule measures 2.0 x 1.6 x 1.3 cm, mixed cystic and solid, isoechoic, wider than tall, smooth margins without calcifications. TR 2, not suspicious. US/Thyroid IMPRESSION: TR-2 isthmus/left thyroid nodule, which does not meet criteria for dedicated fo llow-up by ACR TI-RADS criteria. Further follow-up imaging not indicated. Reading Location: [id number]
== END | disposition home or self-care (01) ==
LOC: US 11:47
PROVIDERS: PCP Family Medicine; Referring Provider Family Medicine; Visit Provider Family Medicine
DX: E04.1 Nontoxic single thyroid nodule (principal)
CPT/HCPCS: 76536

== ENCOUNTER → 2025-01-18 | Outpatient (CLI) | payer MEDICARE, OTHER, SELFPAY ==
--- OUTSIDE RECORDS SUMMARY | 2025-01-18 10:03 | XMS RPT_ITS | CCD ---
Author Organization [facility] Care Team Providers Care Harvest Worker Field Crop Name Role Phone Dr. Zack Hinds Primary Care Provider Dr. Zack Hinds Referring Provider [phone] Dr. Brenton Saul Attending Provider 1([facility])[phone] Zack Hinds Primary Care Provider 1([facility])[phone] Dr. Zack Hinds Referring Provider 1([facility])[phone] MD Florin Calderón Attending Provider 1([facility])[phone] Dr. Brenton Saul Attending Provider 1([facility])[phone] Zack Hinds Primary Care Provider [phone] Zack Hinds Referring Provider [phone] Dr. Brenton Saul Attending Provider 1([facility])[phone] Zack Hinds MD Primary Care Provider 1([facility])[phone] Dr. Zack Hinds MD Referring Provider 1([facility])[phone] Florin Calderón MD Attending Provider 1([facility])[phone] [facility] SUPERVISOR DRYING AND SOFTENING-Eyad Corbin Attending Provider 1([facility])[phone] Zack Hinds MD Attending Provider [phone] Heidy Nuno Other Provider 1([facility])[phone] Dr. Zack Hinds MD Primary Care Provider 1([facility])[phone] Dr. Zack Hinds MD Referring Provider 1([facility])[phone] Zack Hinds Primary Care Unavailable Zack Hinds Referring Unavailable Zack Hinds Attending Unavailable Heidy Nuno Consulting Unavail able Zack Hinds Primary Care Unavailable Jennifer SUPERVISOR DRYING AND SOFTENING, Erika Attending Unavailable Jennifer SUPERVISOR DRYING AND SOFTENING, Erika Referring Unavailable Brenton Saul Attending Unavailable Zack Hinds Primary Care Unavailable Zack Hinds Referring Unavailable Zack Hinds Primary Care Unavailable Zack Hinds Referring Unavailable Eyad Knutson NP Attending Unavailable Zack Hinds Primary Care Unavailable Zack Hinds Referring Unavailable Florin Calderón Attending Unavailable Zack Hinds Primary Care Unavailable Zack Hinds Referring Unavailable Zack Hinds Attending Unavailable Zack Hinds Primary Care Unavailable Dorys, Brenton Referring Unavailable DorysAshley mckeonl Attending Unavailable Zack Hinds Primary Care Unavailable Zack Hinds Referring Unavailable Zack Hinds Attending Unavailable Allergies Allergy Classification Reported Allergen(s) Allergy Type Date of Onset Reaction(s) Facility (9 sources) Amoxicillin Drug Allergy 12-05-2021 Rash [facility] (1 source) Amoxicillin Drug Allergy 07-05-2024 [facility] Repository Medications Current Medications Medication Drug Class(es) Dates Sig (Normalized) Sig (Original) aspirin 81 mg delayed release oral tablet (9 sources) Platelet Aggregation Inhibitor, Nonsteroidal Anti-inflammatory Drug Start: 05-22-2018 Aspirin (Adult Low Dose Aspirin) 81 mg tablet,delayed release (DR/EC) Active 81 mg PO DAILY May 22, 2018 12:00am azithromycin 250 mg oral tablet (2 sources) Macrolide Antimicrobial Start: 07-05-2024 Azithromycin (Zithromax Z-Korey) 250 mg tablet Active 0 PO .COMPLEX July 05, 2024 1:00am For 250 mg dose pack: take 500 mg today (day 1), then 250 mg for 4 days (days 2-5) PO calcium carbonate 1500 mg / cholecalciferol 500 unt oral capsule (9 sources) Vitamin D Start: 12-01-2020 Calcium Carbonate-Vitamin D3 (Calcium 600 With Vitamin D3) 600 mg(1,500mg) -500 unit capsule Active 1 NMA PO TWICE A DAY December 01, 2020 12:00am Start: 12-01-2020 take 1 capsule by [facility] twice daily Calcium Carbonate-Vitamin D3 (Calcium 600 With Vitamin D3) 600 mg(1,500mg) -500 unit capsule Active 1 CAP PO TWICE A DAY December 01, 2020 12:00am hydroCHLOROthiazide 12.5 mg oral capsule (18 sources) Thiazide Diuretic Start: 12-01-2020 take 1 capsule by mouth once daily Hydrochlorothiazide 12.5 mg capsule Active 12.5 mg PO DAILY December 01, 2020 12:00am Start: 03-05-2019 End: 12-01-2020 take 1 tablet by mouth once daily Hydrochlorothiazide 12.5 mg tablet Discontinued 12.5 mg PO DAILY March 05, 2019 12:00am December 01, 2020 2:01pm levothyroxine sodium 0.1 mg oral tablet (20 sources) l-Thyroxine Start: 11-30-2022 take 1 tablet by mouth once daily Levothyroxine 100 mcg tablet Active 100 ug PO DAILY November 30, 2022 12:00am Start: 12-01-2019 End: 11-30-2022 Levothyroxine 125 mcg tablet Discontinued 125 ug PO .6xweDecember 01, 2020 1:59pm November 30, 2022 2:33pm Start: 05-22-2018 End: 12-01-2019 take 1 tablet by mouth once daily Levothyroxine 112 mcg tablet Discontinued 112 ug PO DAILY May 22, 2018 12:00am December 01, 2019 2:11pm losartan potassium 100 mg oral tablet (9 sources) Angiotensin 2 Receptor Odalis Start: 03-05-2019 take 1 tablet by mouth once daily Losartan 100 mg tablet Active 100 mg PO DAILY March 05, 2019 12:00am Turmeric extract (9 sources) Start: 12-05-2021 take 1 capsule by mouth once daily Turmeric 400 mg capsule Active 400 mg PO DAILY December 05, 2021 12:00am Start: 12-05-2021 take 400 mg by mouth once finn y Turmeric Active 400 MG PO DAILY December 04, 2021 11:00pm Start: 12-05-2021 take 400 mg by mouth once finn y Turmeric Active 400 MG PO DAILY December 05, 2021 12:00am Vitamin B Complex (7 sources) Start: 05-22-2018 take 1 tablet by tavares once daily Vitamin B Complex Active 1 TABLET PO DAILY May 21, 2018 11:00pm Start: 05-22-2018 take 1 tablet by mouth once da camryn Vitamin B Complex Active 1 TABLET PO DAILY May 22, 2018 12:00am Vitamin B Complex tablet (2 sources) Start: 05-22-2018 Vitamin B Comp analy tablet Active 1 {tbl} PO DAILY May 22, 2018 12:00am Zinc (9 sources) Start: 12-01-2020 take 1 tablet by mouth once daily Zinc 50 mg tablet Active 50 mg PO DAILY December 01, 2020 12:00am Start: 12-01-2020 take 50 mg by mouth once daily Zinc Active 50 MG PO DAILY November 30, 2020 11:00pm Start: 12-01-2020 take 50 mg by mouth once daily Zinc Active 50 MG PO DAILY December 01, 2020 12:00am Completed/Discontinued Medications Medication Drug Class(es) Dates Sig (Normalized) Sig (Original) acetaminophen 325 mg / HYDROcodone bitartrate 5 mg oral tablet (9 sources) Opioid Agonist Start: 12-22-2016 End: 05-28-2018 Hydrocodone-Acetami nophen 1 TABLET tablet Discontinued 1 - 2 {tbl} PO EVERY 4 HOURS NEEDED as needed for Pain December 22, 2016 12:00am May 28, 2018 9:59am Start: 12-22-2016 End: 05-28-2018 take 1 tablet by mouth every four hours as needed Hydrocodone-Acetaminophen Discontinued 1 - 2 TABLET PO EVERY 4 HOURS NEEDED December 22, 2016 12:00am May 28, 2018 9:59am calcium carbonate-vitamin D3 500 mg(1,250 mg)-600 unit chewable tablet (7 sources) Start: 05-22-2018 End: 12-01-2020 calcium carbonate-vitamin D3 500 mg(1,250 mg)-600 unit chewable tablet Discontinued TABLET PO May 21, 2018 11:00pm December 01, 2020 1:02pm Start: 05-22-2018 End: 12-01-2020 calcium carbonate-vitamin D3 500 mg(1,250 mg)-600 unit chewable tablet Discontinued TABLET PO May 22, 2018 12:00am December 01, 2020 2:02pm Calcium Carbonate-Vitamin D3 500 mg(1,250mg) -600 unit tablet,chewable (2 sources) Start: 05-22-2018 End: 12-01-2020 Calcium Carbonate-Vitamin D3 500 mg(1,250mg) -600 unit tablet,chewable Discontinued {tbl} PO May 22, 2018 12:00am December 01, 2020 2:02pm cholecalciferol 0.125 mg oral tablet (20 sources) Vitamin D Start: 12-01-2019 End: 12-05-2021 take 1 tablet by mouth every week Cholecalciferol (Vitamin D3) 125 mcg (5,000 unit) tablet Discontinued 125 ug PO EVERY WEEK December 01, 2020 2:01pm December 05, 2021 2:00pm hydroCHLOROthiazide 12.5 mg / losartan potassium 100 mg oral tablet (18 sources) Thiazide Diuretic, Angiotensin 2 Receptor Odalis Start: 05-28-2018 End: 03-05-2019 Losartan-Hydrochlorot hiazide 100-12.5 mg tablet Discontinued 1 {tbl} PO DAILY March 04, 2019 10:58am March 05, 2019 4:13pm Start: 05-28-2018 End: 03-05-2019 take 1 tablet by mouth once daily Losartan-Hydrochlorothiazide Discontinue d 1 TABLET PO DAILY March 04, 2019 10:58am March 05, 2019 4:13pm 24 hr metoprolol succinate 25 mg extended release oral tablet (18 sources) beta-Adrenergic Odalsi Start: 05-28-2018 End: 11-27-2018 take 1 tablet by mouth once daily Metoprolol Succinate 25 mg tablet extended release 24 hr Discontinued 25 mg PO DAILY May 28, 2018 12:00am November 27, 2018 1:12pm Start: 05-12-2018 End: 05-22-2018 take 1 tablet by mouth twice daily Metoprolol Tartrate 25 mg tablet Discontinued 25 mg PO TWICE A DAY May 12, 2018 12:00am May 22, 2018 2:00pm one tablet by mouth tonight and one tablet in the morning at 1000. Hematite-3 Fatty Acids (7 sources) Start: 05-28-2018 End: 11-27-2018 take 500 mg by mouth once daily Hematite-3 Fatty Acids Discontinued 500 MG PO DAILY May 27, 2018 11:00pm November 27, 2018 12:12pm Start: 05-28-2018 End: 11-27-2018 take 500 mg by mouth once daily Hematite-3 Fatty Acids Discontinued 500 MG PO DAILY May 28, 2018 12:00am November 27, 2018 1:12pm Hematite-3 Fatty Acids 500 mg capsule (2 sources) Start: 05-28-2018 End: 11-27-2018 take 1 capsule by mouth once daily Hematite-3 Fatty Acids 500 mg capsule Discontinued 500 mg PO DAILY May 28, 2018 12:00am November 27, 2018 1:12pm simvastatin 40 mg oral tablet (20 sources) HMG-CoA Reductase Inhibitor Start: 12-17-2022 End: 09-07-2024 take 1 tablet by mouth once daily Simvastatin 40 mg tablet Discontinued 0 .ROUTE .COMPLEX September 17, 2023 9:08am September 07, 2024 12:24pm TAKE 1 TABLET BY MOUTH EVERY DAY Start: 12-22-2016 End: 12-17-2022 take 1 tablet by mouth once daily Simvastatin 20 mg tablet Discontinued 20 mg PO DAILY December 01, 2020 1:59pm December 17, 2022 9:37am trandolapril 1 mg oral tablet (9 sources) Angiotensin Converting Enzyme Inhibitor Start: 12-22-2016 End: 05-28-2018 take 1 tablet by mouth once daily Trandolapril 1 MG tablet Discontinued 1 mg PO DAILY December 22, 2016 12:00am May 28, 2018 10:20am Problems Active Problems Problem Classification Problem Date Documented Da te Episodic/Chronic Conditions associated with dizziness or vertigo (9 sources) Lightheadedness; Translations: [Dizziness and giddiness] 11-16-2020 Episodic Disorders of lipid metabolism (3 sources) Dyslipidemia; Translations: [Hyperlipidemia, unspecified] Onset: 02-13-2024 02-03-2024 Chronic Essential hypertension (12 sources) Essential hypertension; Translations: [Essential (primary) hypertension] Onset: 10-18-2024 Chronic Nonspecific chest pain (16 sources) Chest pain; Translations: [Chest pain, unspecified] 11-16-2020 Episodic Osteoarthritis (8 sources) Arthritis of left subtalar joint; Translations: [Primary osteoarthritis, left ankle and foot] 07-10-2022 Chronic Osteoporosis (1 source) Age-related osteoporosis without current pathological fracture; Translations: [Age-related osteoporosis without current pathological fracture] Onset: 06-29-2024 Chronic Other connective tissue disease (7 sources) Calcific tendinitis of left shoulder; Translations: [Calcific tendinitis of left shoulder] 07-19-2022 Episodic Other connective tissue disease (1 source) Calcific tendinitis of left shoulder; Translations: [Calcifying tendinitis of shoulder] 07-19-2022 Episodic Other non-traumatic joint disorders (2 sources) Shoulder pain; Translations: [Pain in left shoulder] 07-19-2022 Episodic Other non-traumatic joint disorders (7 sources) Ankle pain; Translations: [Pain in left ankle and joints of left foot] 07-10-2022 Episodic Other non-traumatic joint disorders (1 source) Pain in left ankle and joints of left foot; Translations: [Pain in joint, ankle and foot] 07-10-2022 Episodic Other non-traumatic joint disorders (6 sources) Pain in left shoulder; Translations: [Pain in joint, shoulder region] 07-19-2022 Episodic Other nutritional; endocrine; and metabolic disorders (9 sources) Disorder of lipid metabolism; Translations: [Disorder of lipoprotein metabolism, unspecified] 11-16-2020 Chronic Other nutritional; endocrine; and metabolic disorders (1 source) Disorder of lipoprotein metabolism, unspecified; Translations: [Unspecified disorder of lipoid metabolism] Chronic Thyroid disorders (10 sources) Shyam thyroiditis; Translations: [Autoimmune thyroiditis] Onset: 10-26-2024 07-11-2020 Chronic Past or Other Problems Problem Classification Problem Date Documented Da te Episodic/Chronic Other non-epithelial cancer of skin (9 sources) Beal's disease of skin of chest; 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] Onset: 07-29-2020 11-16-2020 Episodic Other upper respiratory infections (5 sources) Pharyngitis; Translations: [Acute pharyngitis, unspecified] Onset: 07-05-2024 07-05-2024 Episodic Sprains and strains (4 sources) Rupture of tendon of biceps, long head; Translations: [Strain of muscle, fascia and tendon of long head of biceps, right arm, initial encounter] Onset: 06-23-2024 06-23-2024 Episodic Results Test Name Value Interpretation Reference Range Facility Thyroidon 10-19-2024 [facility] [address] [place] [address] [id number] Thyroid MR#: [id number] Acct: [id number] Name: LUIS RYAN Rep #: [id number] : 1950 F 74 From: Bisi Buenrostro nd, MD PCP: Dr. 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 FINDINGS: Right thyroid lobe measures 2.3 x 0.7 x 0.7 cm. Left thyroid lobe measures 1.8 x 1.0 x 0.7 cm. Isthmus thickness is0.1 cm. Thyroid Size: Normal Background Echotexture: Heterogeneous Thyroid Nodules: One isthmus/left thyroid nodule measured. The nodule measures 2.0 x 1.6 x 1.3 cm, mixed cystic and solid, isoechoic, wider than tall, smooth margins without calcifications. TR 2, not suspicious. US/Thyroid IMPRESSION: TR-2 isthmus/left thyroid nodule, which does not meet criteria for dedicated follow-up by ACR TI- RADS criteria. Further follow-up imaging not indicated. Reading Location: [facility] CC: Dr. Zack Hinds MD Business Office Coordinator: Signed Normal [facility] Anion gap in Serum or Plasma Ordered By: Zack Hinds on 10-08-2024 Anion gap [Moles/Vol] 12 mmol/L 5-15 [facility] BUN/creatinine ratioOrdered By: Zack Hinds on 10-08-2024 Urea nitrogen/Creatinine [Mass ratio] 19.2 mg/mg - [facility] Basic Metabolic Profile (BMP )on 10-08-2024 BUN/CRE 19.2 RATIO Normal - [facility] Comment on above: Order Comment: Order Date: 10/06/24Order Info: 0667-1 - BMP Performed By: #### L 500.2500 ####[facility] [address] [place], [address] Calcium [Mass/Vol] 9.5 mg/dL Normal 7.6-11.0 [facility] Comment on above: Order Comment: Order Date: 10/06/24Order Info: 0667-1 - BMP Performed By: #### L 500.2500 ####[facility] [address] [place], [address] Chloride [Moles/Vol] 101 mmol/L Normal 98-108 [facility] Comment on above: Order Comment: Order Date: 10/06/24Order Info: 0667- - BMP Performed By: #### L 500.2500 ####[facility] [address] [place], [address] CO2 [Moles/Vol] 25.9 mmol/L Normal 21.0-32.0 [facility] Comment on above: Order Comment: Order Date: 10/06/24Order Info: 06 - BMP Performed By: #### L 500.2500 ####[facility] [address] [place], [address] Creatinine [Mass/Vol] 0.67 mg/dL Low 0.70-1.20 [facility] Comment on above: Order Comment: Order Date: 10/06/24Order Info: 06 - BMP Performed By: #### L 500.2500 ####[facility] [address] [place], [address] GAP 12 Normal 5-15 [facility] Comment on above: Order Comment: Order Date: 10/06/24Order Info: 06 - BMP Performed By: #### L 500.2500 ####[facility] [address] [place], [address] GFR/1.73 sq M.predicted among non-blacks MDRD (S/P/Bld) [Vol rate/Area] 93 mL/min/{1.73_m2} Normal >60 [facility] Comment on above: Order Comment: Order Date: 10/06/24Order Info: 0667- - BMP Result Comment: mL/m in/1.73m2 CKD-EPI Creatinine Equation (2020) Performed By: #### L 500.2500 ####[facility] [address] [place], [address] Glucose [Mass/Vol] 84 mg/dL Normal 70-99 [facility] Comment on above: Order Comment: Order Date: 10/06/24Order Info: 0667- - BMP Performed By: #### L 500.2500 ####[facility] [address] [place], [address] Potassium [Moles/Vol] 3.9 mmol/L Normal 3.3-5.1 [facility] Comment on above: Order Comment: Order Date: 10/06/24Order Info: 0667-1 - BMP Performed By: #### L 500.2500 ####[facility] [address] [place], [address] Sodium [Moles/Vol] 139 mmol/L Normal 133-145 [facility] Comment on above: Order Comment: Order Date: 10/06/24Order Info: 0667 - BMP Performed By: #### L 500.2500 ####[facility] [address] [place], [address] Urea nitrogen [Mass/Vol] 13 mg/dL Normal 4-19 [facility] Comment on above: Order Comment: Order Date: 10/06/24Order Info: 0667- - BMP Performed By: #### L 500.2500 ####[facility] [address] [place], [address] Bilirubin directOrdered By: Heidy Strickland on 10-08-2024 Bilirubin.direct [Mass/Vol] 0.24 mg/dL 0.00-0.30 [facility] Bilirubin, totalOrdered By: Heidy Strickland on 10-08-2024 Bilirubin [Mass/Vol] 0.49 mg/dL 0.00-1.30 [facility] Calculated very low density lipoprotein (VLDL) cholesterol measurementOrdered By: Heidy Strickland on 10-08-2024 VLDL Cholesterol 13 mg/dL 5-40 [facility] Carbon dioxide, total [Moles /volume] in Central venous bloodOrdered By: Zack Hinds on 10-08-2024 CO2 [Moles/Vol] 25.9 mmol/L 21.0-32.0 [facility] Chloride assayOrdered By: Jorge Hinds on 10-08-2024 Chloride [Moles/Vol] 101 mmol/L 98-108 [facility] GFR/1.73 sq M.predicted rosa g non-blacks MDRD (S/P/Bld) [Vol rate/Area]Ordered By: Zack Hinds on 10-08-2024 Estimated GFR (MDRD) Non-Af Amer 93 >60 [facility] Comment on above: mL/min/1.73m2 CKD-EP I Creatinine Equation (2020) LDL calc ser/plasOrdered By: Heidy Strickland on 10-08-2024 LDL Cholesterol, Calculated 93 mg/dL [facility] Comment on above: Jxmltjbfbd=740-288 m g/dL & Higher Pwtn=888 mg/dL or greater Laboratory - Chemistry and C hemistry - challengeOrdered By: Heiyd Strickland on 10-08-2024 AST [Catalytic activity/Vol] 22 U/L <32 [facility] Lipid Profileon 10-08-2024 CHOL:HDL 2.47 Normal [facility] Comment on above: Performed By: #### L 500.4100, L500.3400 #### [facility] [address] [facility] [place], [place], [id number] Cholesterol [Mass/Vol] 178 mg/dL Normal <=200 [facility] Comment on above: Result Comment: Chol esterol level, Desirable <200 mg/dL Borderline high cholesterol 200-239 mg/dL High cholesterol >=240 mg/dL Recommendations of the NCEP Adult Treatment Panel for the following risk-cutoff thresholds for the [place] population. Performed By: #### L 500.4100, L500.3400 #### [facility] [address] [facility] [place], [place], [id number] Cholesterol in HDL [Mass/Vol] 72 mg/dL Normal [facility] Comment on above: Result Comment: Yanet onal Cholesterol Education Program (NCEP) guidelines: <40 mg/dL: Low HDL-cholesterol (major risk factor for CHD) >= 60 mg/dL: High HDL-cholesterol (negative risk factor for CHD) HDL-cholesterol is affected by a number of factors, e.g. smoking, exercise, hormones, sex and age. Performed By: #### L 500.4100, L500.3400 #### [facility] [address] [place], [address] Cholesterol in LDL [Mass/Vol] 93 mg/dL Normal [facility] Comment on above: Result Comment: Bord nxbvgj=306-691 mg/dL Higher Amux=422 mg/dL or greater Performed By: #### L 500.4100, L500.3400 #### [facility] [address] [place], [address] Cholesterol in VLDL [Mass/Vol] 13 mg/dL Normal 5-40 [facility] Comment on above: Performed By: #### L 500.4100, L500.3400 #### [facility] [address] [place], [address] Triglyceride [Mass/Vol] 64 mg/dL Normal [facility] Comment on above: Result Comment: The drugs N-Acetylcysteine and Metamizole may falsely depress this assay. Normal range: <150 mg/dL Borderline High: 150-199 mg/dL High: 200-499 mg/dL Very High: >500 mg/dL Performed By: #### L 500.4100, L500.3400 #### [facility] [address] [place], [address] Liver Profileon 10-08-2024 Albumin [Mass/Vol] 4.2 g/dL Normal 3.4-4.8 [facility] Comment on above: Performed By: #### L 500.4100, L500.3400 #### [facility] [address] [place], [address] ALK PHOS 68 U/L Normal 35-104 [facility] Comment on above: Performed By: #### L 500.4100, L500.3400 #### [facility] [address] [place], [address] ALT [Catalytic activity/Vol] 16 U/L Normal <=34 [facility] Comment on above: Performed By: #### L 500.4100, L500.3400 #### [facility] [address] [place], [address] AST [Catalytic activity/Vol] 22 U/L Normal <=31 [facility] Comment on above: Performed By: #### L 500.4100, L500.3400 #### [facility] [address] [place], [address] Bilirubin [Mass/Vol] 0.49 mg/dL Normal 0.00-1.30 [facility] Comment on above: Performed By: #### L 500.4100, L500.3400 #### [facility] [address] [place], [address] Bilirubin.direct [Mass/Vol] 0.24 mg/dL Normal 0.00-0.30 [facility] Comment on above: Performed By: #### L 500.4100, L500.3400 #### [facility] [address] [place], [address] Globulin (S) [Mass/Vol] 2.6 g/dL Normal 2.2-4.2 [facility] Comment on above: Performed By: #### L 500.4100, L500.3400 #### [facility] [address] [place], [address] T PROT 6.8 g/dL Normal 5.9-8.4 [facility] Comment on above: Performed By: #### L 500.4100, L500.3400 #### [facility] [address] [place], [address] Potassium (Unsp spec) [Mass/ Vol]Ordered By: Zack Hinds on 10-08-2024 Potassium [Moles/Vol] 3.9 mmol/L 3.3-5.1 [facility] Screening total cholesterol/ high density lipoprotein (HDL) cholesterol ratioOrdered By: Heidy Strickland on 10-08-2024 Cholesterol.total/Ch olesterol in HDL [Mass ratio] 2.47 {ratio} [facility] Serum creatinine measurement (mass/volume)Ordered By: Zack Hinds on 10-08-2024 Creatinine [Mass/Vol] 0.67 mg/dL Low 0.70-1.20 [facility] Serum globulin measurementOr dered By: Heidy Strickland on 10-08-2024 Globulin (S) [Mass/Vol] 2.6 g/dL 2.2-4.2 [facility] Serum glucose measurement (m ass/volume)Ordered By: Zack Hinds on 10-08-2024 Glucose [Mass/Vol] 84 mg/dL 70-99 [facility] Serum or plasma alanine garcia otransferase (ALT) measurementOrdered By: Heidy Strickland on 10-08-2024 ALT [Catalytic activity/Vol] 16 U/L <35 [facility] Serum or plasma albumin nancy urement (mass/volume)Ordered By: Heidy Strickland on 10-08-2024 Albumin [Mass/Vol] 4.2 g/dL 3.4-4.8 [facility] Serum or plasma alkaline lamberto sphatase measurementOrdered By: Heidy Strickland on 10-08-2024 ALP [Catalytic activity/Vol] 68 U/L 35-104 [facility] Serum or plasma calcium nnacy urement (mass/volume)Ordered By: Zack Hinds on 10-08-2024 Calcium [Mass/Vol] 9.5 mg/dL 7.6-11.0 [facility] Serum or plasma cholesterol in HDL measurement (mass/volume)Ordered By: Heidy Strickland on 10-08-2024 Cholesterol in HDL [Mass/Vol] 72 mg/dL >40 [facility] Comment on above: National Cholesterol Education Program (NCEP) guidelines:<40 mg/dL: Low HDL-cholesterol (major risk factor for CHD)>= 60 mg/dL: High HDL-cholesterol (negative risk factor for CHD)HDL-cholesterol is affected by a number of factors, e.g. smoking, exercise, hormones, sex and age. Serum or plasma cholesterol measurement (mass/volume)Ordered By: Heidy Strickland on 10-08-2024 Cholesterol [Mass/Vol] 178 mg/dL <201 [facility] Comment on above: Cholesterol level, D esirable <200 mg/dLBorderline high cholesterol 200-239 mg/dLHigh cholesterol >=240 mg/dLRecommendations of the NCEP Adult Treatment Panel for the following risk-cutoff thresholds for the [place] population. Serum or plasma urea nitroge n measurement (mass/volume)Ordered By: Zack Hinds on 10-08-2024 Urea nitrogen [Mass/Vol] 13 mg/dL 4-19 [facility] Sodium levelOrdered By: Zack Hinds on 10-08-2024 Sodium [Moles/Vol] 139 mmol/L 133-145 [facility] Total proteinOrdered By: Romeo Strickland on 10-08-2024 Protein [Mass/Vol] 6.8 g/dL 5.9-8.4 [facility] Triglycerides measurementOrd ered By: Heidy Strickland on 10-08-2024 Triglyceride [Mass/Vol] 64 mg/dL <199 [facility] Comment on above: The drugs N-Acetylcy steine and Metamizole may falsely depress this assay. Normal range: <150 mg/dLBorderline High: 150-199 mg/dLHigh: 200-499 mg/dLVery High: >500 mg/dL S. pyogenes Ag IA.rapid Ql ( Throat)on 07-05-2024 S. pyogenes Ag IA Ql (Unsp spec) Negative [facility] Urgent Care Visit Reporton 1 09-05-2023 Urgent Care Visit Report [facility] [address] , [address] [place] [address] OFFICE VISIT Date of Service: 07/05/24 MR#: [id number] Acct: [id number] Name: LUIS RYAN Rep #: [id number] : 1950 Provider: FREDA daley Age/Sex: 74/F Location[place] [facility] Status: Signed Intake Vital Signs 06/23/24 08:02 07/05/24 09:35 07/05/24 11:08 Height 5 ft 1 in 5 ft 1 in 5 ft 2 in Weight: 147 lb 149 lb 4 oz BMI 27.8 27.3 BP 128/78 H Blood Pressure Location Lt brachial Position Sitting Respiration 18 Pulse 71 Pulse Source Monitor Temp 97.5 F L Temp Source Temporal Pulse Oximetry (%) 98 Oxygen Delivery Method room air Intake Visit Reasons: SORE THROAT Chief Complaint: ST Allergies amoxicillin Adverse Reaction (Verified 07/05/24 11:05) Rash Medications ???Medication ???Instructions ???Recorded ???Confirmed ???Type aspirin 81 mg tablet,delayed 81 mg PO DAILY 05/22/18 07/05/24 History release (Adult Low Dose Aspirin) vitamin B complex 1 tab PO DAILY 05/22/18 07/05/24 History losartan 100 mg tablet 100 mg PO DAILY #90 tabs 03/05/19 07/05/24 Rx calcium 600 mg (as 1 cap PO BID 12/01/20 07/05/24 History carbonate)-vitamin D3 12.5 mcg (500 unit) capsule (Calcium with Vit D3) hydrochlorothiazide 12.5 mg capsule 12.5 mg PO DAILY 12/01/20 07/05/24 History zinc 50 mg tablet 50 mg PO DAILY 12/01/20 07/05/24 History cholecalciferol (vitamin D3) 125 125 mcg PO .COMPLEX 12/05/21 07/05/24 History mcg (5,000 unit) tablet turmeric 400 mg capsule 400 mg PO DAILY 12/05/21 07/05/24 History levothyroxine 100 mcg tablet 100 mcg PO DAILY 11/30/22 07/05/24 History simvastatin 40 mg tablet See Rx Instructions .Route 09/17/23 07/05/24 Rx .COMPLEX #90 tabs azithromycin 250 mg tablet See Rx Instructions PO .COMPLEX #6 07/05/24 07/05/24 Rx (Zithromax Z-Korey) tabs Post menopausal: Yes Have you fallen in the past year?: No PFSH Medical History Rupture of right long head biceps tendon Dyslipidemia Calcific tendinitis of left shoulder Left shoulder pain Arthritis of left subtalar joint Left ankle pain Obesity Personal history of squamous cell carcinoma of skin 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) Skin lesion Chronic lymphocytic thyroiditis Thyroiditis Multiple thyroid nodules Abnormal cardiac CT angiography Hypothyroidism Osteopenia Essential (primary) hypertension Disorder of lipoid metabolism Bilateral rotator cuff syndrome Surgical History History of squamous cell carcinoma excision (06/2020) History of bunionectomy of right great toe History of trigger finger History of carpal tunnel release of both wrists Family History Father Heart disease CHF Diabetes Brother Myocardial infarction from [place] age 51 Brother CAD (coronary artery disease) stents Sister CAD (coronary artery disease) stents Social History Smoking Status: Former smoker how long ago did patient quit smokin years ago alcohol intake: current alcohol intake frequency: 0-2 drinks per day Alcohol type: beer and wine substance use type: does not use caffeine: Yes (occasional cup of coffee) HPI HPI Chief Complaint: ST Details: LUIS RYAN, is a 74 F who presents to the office today for concerns regarding sore throat. Prior to evaluation she underwent rapid strep testing that was negative. This has been ongoing for 3-4 days. She states prior to this she noted URI symptoms. She states this is worse with a cough and swallowing. ROS Const Constitutional: Positive for abnormal sleep pattern (cough keeps her up); No body ache, chills, fatigue, fever(s), headache(s) or change in appetite Eyes Eyes: No blurry vision, change in vision, double vision, irritation, discharge, vision loss, dry eyes, bulging eyes, floaters, visual disturbances, eye pain, Light sensitivity, spots in vision, tunnel vision or other ENT ENT: Positive for nasal discharge (very little), hoarseness and sore throat; No ear or mastoid pain, ear discharge, ear pressure, tinnitus, dizziness/vertigo, nosebleed/epistaxis, nasal congestion, nose pain, sinus pressure, sinus pain, post nasal drip, headache(s), facial pain, dental pain, difficulty swallowing, bad breath, lip swelling, mouth lesions, mouth pain, neck pain, tongue swelling or throat swelling Resp Respiratory: Positive for cough (intermittent- worse at night when lying flat); No change in phlegm color, chest congestion, hemoptysis, pain on inspiration, shortness of breath, pain with cough, stridor or wheezing Cardio Cardiology: No chest p (more content not included)... Normal [facility] Orthopedic Visit Reporton Orthopedic Visit Report [facility] [place] [address] OFFICE VISIT Date of Service: 06/23/24 MR#: [id number] Acct: [id number] Name: LUIS RYAN Rep #: [id number] : 1950 Provider: Dr. Florin sultana MD Age/Sex: 74/F Location[place] [facility] Status: Signed Intake Vital Signs 06/04/24 15:30 06/23/24 08:02 Height 5 ft 2 in 5 ft 1 in Weight: 147 lb BMI 27.8 Intake Visit Reasons: RIGHT ARM Accompanied by: Self Is patient in pain?: Yes Pain scale (1-10): 5 Allergies amoxicillin Adverse Reaction (Verified 06/23/24 08:03) Rash Medications ???Medication ???Instructions ???Recorded ???Confirmed ???Type aspirin 81 mg tablet,delayed 81 mg PO DAILY 05/22/18 06/23/24 History release (Adult Low Dose Aspirin) vitamin B complex 1 tab PO DAILY 05/22/18 06/23/24 History losartan 100 mg tablet 100 mg PO DAILY #90 tabs 03/05/19 06/23/24 Rx calcium 600 mg (as 1 cap PO BID 12/01/20 06/23/24 History carbonate)-vitamin D3 12.5 mcg (500 unit) capsule (Calcium with Vit D3) hydrochlorothiazide 12.5 mg capsule 12.5 mg PO DAILY 12/01/20 06/23/24 History zinc 50 mg tablet 50 mg PO DAILY 12/01/20 06/23/24 History cholecalciferol (vitamin D3) 125 125 mcg PO .COMPLEX 12/05/21 06/23/24 History mcg (5,000 unit) tablet turmeric 400 mg capsule 400 mg PO DAILY 12/05/21 06/23/24 History levothyroxine 100 mcg tablet 100 mcg PO DAILY 11/30/22 06/23/24 History simvastatin 40 mg tablet See Rx Instructions .Route 09/17/23 06/23/24 Rx .COMPLEX #90 tabs Have you fallen in the past year?: No PFSH Medical History (Updated 06/23/24 @ 08:23 by Florin Calderón MD) Rupture of right long head biceps tendon Dyslipidemia Calcific tendinitis of left shoulder Left shoulder pain Arthritis of left subtalar joint Left ankle pain Obesity Personal history of squamous cell carcinoma of skin 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) Skin lesion Chronic lymphocytic thyroiditis Thyroiditis Multiple thyroid nodules Abnormal cardiac CT angiography Hypothyroidism Osteopenia Essential (primary) hypertension Disorder of lipoid metabolism Bilateral rotator cuff syndrome Surgical History History of squamous cell carcinoma excision (06/2020) History of bunionectomy of right great toe History of trigger finger History of carpal tunnel release of both wrists Family History Father Heart disease CHF Diabetes Brother Myocardial infarction from [place] age 51 Brother CAD (coronary artery disease) stents Sister CAD (coronary artery disease) stents Social History Smoking Status: Former smoker how long ago did patient quit smokin years ago alcohol intake: current alcohol intake frequency: 0-2 drinks per day Alcohol type: beer and wine substance use type: does not use caffeine: Yes (occasional cup of coffee) HPI RIGHT ARM Details: This documentation accurately reflects the service provided and the decisions made by me, Dr. Florin Calderón MD 06/23/24 0756. Part of today???s visit was documented by [ ], acting as scribe. LUIS RYAN is a 74 year old F here today for right shoulder pain. Patient was carrying a bucket last Vikas about 4 days ago now and there was sudden pain and letting go in the shoulder change in the contour a lump in the upper arm. Some swelling and pain there anteriorly over the long head of the biceps. No pop. Patient [id number]. Slowly getting better the patient is gradually using the arm more in the gym. Ortho Exam General General: Yes no acute distress Neurologic: Yes alert and Yes oriented x3 Psychologic: Yes reasonable and appropriate Right Shoulder Skin/Wound: Yes CDI, No ecchymosis, No erythema and Yes swelling (mild over LHB, sandra sign) Testing: Positive TTP Biceps, AROM-Forward Elevation 0-180, AROM-External Rotation at side 0-60 and belly press normal; Negative Hawkin's, Neer's, Speed's, TTP AC Joint, Drop Arm, empty can, cross arm or scapular winging SHOULDER: normal motor and sens to ax nerve, and MRU and AIN/PIN Coding Level of Care Code Off vis,est,level 3 Diagnoses Rupture of right long head biceps tendon S46.111A Assessment and Plan Assessment and Plan (1) Rupture of right long head biceps tendon: Status: Acute Plan: 74-year-old female with atraumatic rupture right long head of the biceps tendon. I explained the diagnosis prognosis different treatment options typically these are treated nonoperatively as they do well with conservative management rest ice PT Tylenol as needed for pain typically the patient stays away fro (more content not included)... Normal [facility] Dexa Bone Density Studyon Dexa Bone Density Study [facility] [address] [place] [address] [id number] Dexa Bone Density Study MR#: [id number] Acct: [id number] Name: LUIS RYAN Rep #: [id number] : 1950 F 74 From: Alberto huddleston MD PCP: Dr. Zack Hinds MD Status: [facility] Study: Dexa Bone Density Study Date of Exam: 06/04/24 Exam# [id number] Ordering Dr: Erika Rodriguez SUPERVISOR [employer]YING [employer]EN[employer]PERVISOR [employer]YING [employer]EN[employer]-C :[id number] STUDY: DUAL ENERGY X-RAY ABSORPTIOMETRY / DXA REASON FOR EXAM: Female, 74 years old. 733.00OsteoporosisBONE DENSITY REASON FOR EXAM TECHNIQUE: Bone Mineral Density (BMD) measurements of lumbar spine and bilateral hips were obtained. COMPARISON: Comparison is made with prior study dated January 26, 2020. FINDINGS: Lumbar Spine (L1-L4): g/cm2 (0.945) / T-score (-0.9) / Z-score (1.3) Findings are suggestive of normal bone density with a low fracture risk. Left Femur Total: g/cm2 (0.799) / T-score (-1.2) / Z-score (0.4) Left Femoral Neck: g/cm2 (0.660) / T-score (-1.7) / Z-score (0.2) Right Femur Total: g/cm2 (0.772) / T-score (-1.4) / Z-score (0.2) Right Femoral Neck: g/cm2 (0.603) / T-score (-2.2) / Z-score (-0.3) The T-Scores on the most recent prior examination were: Lumbar Spine (L1-L4): There has been worsening of bone density since the previous examination. Left Femur Total: which represents a worsening of 2.9%. Right Femur Total: which represents a worsening of 4%. BD/Dexa Bone Density Study IMPRESSION: The patient is considered osteopenic as outlined below according to World Ko Organization (WHO) criteria with a moderate fracture risk. There has been worsening of bone density since the previous examination. Reference Information: The T-score is the number of standard deviations above or below the standard which is normal for young adults at their peak bone mineral density. The World Health Organization (WHO) interprets the T-scores as follows: Above -1 Normal bone density Between -1 and -2.5 Osteopenia Equal to / or below -2.5 Osteoporosis As a practical clinical guideline, osteopenia may be graded as follows: Mild -1 through -1.5 Moderate -1.6 through -2.0 Severe -2.1 through -2.4 The Z-score is the number of standard deviations above or below age-matched controls. A Z-score of less than -1.5 would be considered abnormal. References: 1. NIH Osteoporosis and Related Bone Diseases www osteo.org 2. International Society for Clinical Densitometry www iscd.org 3. National Osteoporosis Foundation www nof.org Electronically Signed: Alberto Pelaez MD at 13:53 EST , CC: FREDA Rodriguez; Dr. Zack Hinds MD Business Office Coordinator: Signed Normal [facility] Comprehensive Metabolic Prof ilon 04-15-2024 Albumin [Mass/Vol] 3.6 g/dL Normal 3.2-5.0 [facility] Comment on above: Order Comment: Order Date: 10/28/23 Order Info: [id number] - CMP Order Info: [id number] - LIPID Order Info: 3 - TSH Order Info: [id number] - T4F Performed By: #### L 500.4100, L500.4050, L501.9520, L502.0250, L506.0400 #### [facility] [address] [place], [address] Albumin/Globulin [Mass ratio] 1.1 {ratio} Normal 0.9-2.4 [facility] Comment on above: Order Comment: Order Date: 10/28/23 Order Info: [id number] - CMP Order Info: [id number] - LIPID Order Info: [id number] - TSH Order Info: 3024-7 - T4F Performed By: #### L 500.4100, L500.4050, L501.9520, L502.0250, L506.0400 #### [facility] [address] [place], [address] ALK P 79 U/L Normal 45-117 [facility] Comment on above: Order Comment: Order Date: 10/28/23 Order Info: [id number] - CMP Order Info: [id number] - LIPID Order Info: [id number] - TSH Order Info: 3024-7 - T4F Performed By: #### L 500.4100, L500.4050, L501.9520, L502.0250, L506.0400 #### [facility] [address] [place], [address] ALT [Catalytic activity/Vol] 25 U/L Normal 13-56 [facility] Comment on above: Order Comment: Order Date: 10/28/23 Order Info: 0786-1 - CMP Order Info: [id number] - LIPID Order Info: [id number] - TSH Order Info: 3024-7 - T4F Performed By: #### L 500.4100, L500.4050, L501.9520, L502.0250, L506.0400 #### [facility] [address] [place], [address] AST [Catalytic activity/Vol] 16 U/L Normal 15-37 [facility] Comment on above: Order Comment: Order Date: 10/28/23 Order Info: 785-1 - CMP Order Info: [id number] - LIPID Order Info: 3 - TSH Order Info: 302-7 - T4F Performed By: #### L 500.4100, L500.4050, L501.9520, L502.0250, L506.0400 #### [facility] [address] [place], [address] Bilirubin [Mass/Vol] 0.80 mg/dL Normal 0.20-1.00 [facility] Comment on above: Order Comment: Order Date: 10/28/23 Order Info: [id number] - CMP Order Info: [id number] - LIPID Order Info: [id number] - TSH Order Info: 3024-7 - T4F Result Comment: For patients on eltrombopag therapy, use of Dimension [place] TBIL is not recommended. Performed By: #### L 500.4100, L500.4050, L501.9520, L502.0250, L506.0400 #### [facility] [address] [place], [address] BUN/CRE 15.2 RATIO Normal 10-20 [facility] Comment on above: Order Comment: Order Date: 10/28/23 Order Info: 785-1 - CMP Order Info: [id number] - LIPID Order Info: 3 - TSH Order Info: 3024-7 - T4F Performed By: #### L 500.4100, L500.4050, L501.9520, L502.0250, L506.0400 #### [facility] [address] [place], [address] CA,Total 9.3 mg/dL Normal 8.5-10.1 [facility] Comment on above: Order Comment: Order Date: 10/28/23 Order Info: 785- - CMP Order Info: - LIPID Order Info: 3 - TSH Order Info: 3024-7 - T4F Performed By: #### L 500.4100, L500.4050, L501.9520, L502.0250, L506.0400 #### [facility] [address] [place], [address] Chloride [Moles/Vol] 104 mmol/L Normal 98-107 [facility] Comment on above: Order Comment: Order Date: 10/28/23 Order Info: 785- - CMP Order Info: [id number] - LIPID Order Info: 63 - TSH Order Info: 3024-7 - T4F Performed By: #### L 500.4100, L500.4050, L501.9520, L502.0250, L506.0400 #### [facility] [address] [place], [address] CO2 [Moles/Vol] 29.0 mmol/L Normal 21.0-32.0 [facility] Comment on above: Order Comment: Order Date: 10/28/23 Order Info: 0786-1 - CMP Order Info: [id number] - LIPID Order Info: [id number] - TSH Order Info: 3024-7 - T4F Performed By: #### L 500.4100, L500.4050, L501.9520, L502.0250, L506.0400 #### [facility] [address] [place], [address] Creatinine [Mass/Vol] 0.72 mg/dL Normal 0.55-1.02 [facility] Comment on above: Order Comment: Order Date: 10/28/23 Order Info: 0786-1 - CMP Order Info: [id number] - LIPID Order Info: [id number] - TSH Order Info: 302-7 - T4F Result Comment: The validity of the calculated GFR GFRAA in patients over 70 years has not been determined. Clinical correlation is essential. Performed By: #### L 500.4100, L500.4050, L501.9520, L502.0250, L506.0400 #### [facility] [address] [place], [address] EST GFR - AA 102 mL/min Normal >60 [facility] Comment on above: Order Comment: Order Date: 10/28/23 Order Info: 785- - CMP Order Info: [id number] - LIPID Order Info: 3 - TSH Order Info: 3023-7 - T4F Result Comment: Afri can [place] GFR Calc Performed By: #### L 500.4100, L500.4050, L501.9520, L502.0250, L506.0400 #### [facility] [address] [place], [address] GAP 5 Normal 5-15 [facility] Comment on above: Order Comment: Order Date: 10/28/23 Order Info: 07-1 - CMP Order Info: [id number] - LIPID Order Info: [id number] - TSH Order Info: 302-7 - T4F Performed By: #### L 500.4100, L500.4050, L501.9520, L502.0250, L506.0400 #### [facility] [address] [place], [address] GFR/1.73 sq M.predicted among non-blacks MDRD (S/P/Bld) [Vol rate/Area] 84 mL/min/{1.73_m2} Normal >60 [facility] Comment on above: Order Comment: Order Date: 10/28/23 Order Info: 07-1 - CMP Order Info: [id number] - LIPID Order Info: 3 - TSH Order Info: 3024-7 - T4F Result Comment: Non- GFR Calc Performed By: #### L 500.4100, L500.4050, L501.9520, L502.0250, L506.0400 #### [facility] [address] [place], [address] Globulin (S) [Mass/Vol] 3.3 g/dL Normal 2.2-4.2 [facility] Comment on above: Order Comment: Order Date: 10/28/23 Order Info: 785- - CMP Order Info: - LIPID Order Info: [id number] - TSH Order Info: 3024-7 - T4F Performed By: #### L 500.4100, L500.4050, L501.9520, L502.0250, L506.0400 #### [facility] [address] [place], [address] Glucose [Mass/Vol] 95 mg/dL Normal 74-106 [facility] Comment on above: Order Comment: Order Date: 10/28/23 Order Info: 07 - CMP Order Info: [id number] - LIPID Order Info: 3 - TSH Order Info: 3024-7 - T4F Performed By: #### L 500.4100, L500.4050, L501.9520, L502.0250, L506.0400 #### [facility] [address] [place], [address] Potassium [Moles/Vol] 4.3 mmol/L Normal 3.5-5.1 [facility] Comment on above: Order Comment: Order Date: 10/28/23 Order Info: 07-1 - CMP Order Info: [id number] - LIPID Order Info: [id number] - TSH Order Info: 7 - T4F Performed By: #### L 500.4100, L500.4050, L501.9520, L502.0250, L506.0400 #### [facility] [address] [place], [address] Sodium [Moles/Vol] 138 mmol/L Normal 136-145 [facility] Comment on above: Order Comment: Order Date: 10/28/23 Order Info: 86-1 - CMP Order Info: [id number] - LIPID Order Info: [id number] - TSH Order Info: 7 - T4F Performed By: #### L 500.4100, L500.4050, L501.9520, L502.0250, L506.0400 #### [facility] [address] [place], [address] T PROT 6.9 g/dL Normal 6.4-8.2 [facility] Comment on above: Order Comment: Order Date: 10/28/23 Order Info: 1 - CMP Order Info: [id number] - LIPID Order Info: [id number] - TSH Order Info: 3024-01 - T4F Performed By: #### L 500.4100, L500.4050, L501.9520, L502.0250, L506.0400 #### [facility] [address] [place], [address] Urea nitrogen [Mass/Vol] 11 mg/dL Normal 7-18 [facility] Comment on above: Order Comment: Order Date: 10/28/23 Order Info: 0786-1 - CMP Order Info: [id number] - LIPID Order Info: [id number] - TSH Order Info: [id number] - T4F Performed By: #### L 500.4100, L500.4050, L501.9520, L502.0250, L506.0400 #### [facility] [address] [place], [address] Lipid Profileon 04-15-2024 Cholesterol [Mass/Vol] 179 mg/dL Normal 200 [facility] Comment on above: Order Comment: Order Date: 10/28/23 Order Info: 785- - CMP Order Info: - LIPID Order Info: 3 - TSH Order Info: 7 - T4F Result Comment: <200 mg/dL Desirable 200-240 mg/dL Borderline >240 mg/dL High Risk Performed By: #### L 500.4100, L500.4050, L501.9520, L502.0250, L506.0400 #### [facility] [address] [place], [address] Cholesterol in HDL [Mass/Vol] 91 mg/dL Normal [facility] Comment on above: Order Comment: Order Date: 10/28/23 Order Info: [id number] - CMP Order Info: - LIPID Order Info: [id number] - TSH Order Info: [id number] - T4F Result Comment: The drugs N-Acetylcysteine and Metamizole may falsely depress this assay. Reference Range HDL <40 mg/dL Low HDL Cholesterol HDL >or= 60 mg/dL High HDL Cholesterol Performed By: #### L 500.4100, L500.4050, L501.9520, L502.0250, L506.0400 #### [facility] [address] [place], [address] Cholesterol in LDL [Mass/Vol] 73 mg/dL Normal 0-130 [facility] Comment on above: Order Comment: Order Date: 10/28/23 Order Info: 07 - CMP Order Info: - LIPID Order Info: [id number] - TSH Order Info: [id number] - T4F Performed By: #### L 500.4100, L500.4050, L501.9520, L502.0250, L506.0400 #### [facility] [address] [place], [address] Cholesterol in VLDL [Mass/Vol] 15 mg/dL Normal 5-40 [facility] Comment on above: Order Comment: Order Date: 10/28/23 Order Info: [id number] - CMP Order Info: [id number] - LIPID Order Info: 3 - TSH Order Info: [id number] - T4F Performed By: #### L 500.4100, L500.4050, L501.9520, L502.0250, L506.0400 #### [facility] [address] [place], [place], [id number] Triglyceride [Mass/Vol] 73 mg/dL Normal [facility] Comment on above: Order Comment: Order Date: 10/28/23 Order Info: [id number] - CMP Order Info: [id number] - LIPID Order Info: [id number] - TSH Order Info: [id number] - T4F Result Comment: The drugs N-Acetylcysteine and Metamizole may falsely depress this assay. Serum Triglycerides Reference Interval Normal <150 mg/dL Borderline high 150 - 199 mg/dL High 200 - 499 mg/dL Very High > or = 500 mg/dL Performed By: #### L 500.4100, L500.4050, L501.9520, L502.0250, L506.0400 #### [facility] [address] [place], [address] Microalb:Creat Ratio,Random URon 04-15-2024 Creatinine [Mass/Vol] 17.30 mg/dL Normal NO RANGE EST. [facility] Comment on above: Order Comment: Order Date: 10/28/23Order Info: [id number] - MIACRE Performed By: #### L 500.4100, L500.4050, L501.9520, L502.0250, L506.0400 ####[facility] [address] [place], [place], [id number] MALB:CRE TNP Normal <30 mg/g CRE [facility] Comment on above: Order Comment: Order Date: 10/28/23Order Info: [id number] - MIACRE Performed By: #### L 500.4100, L500.4050, L501.9520, L502.0250, L506.0400 ####[facility] [address] [place], [address] MICROALBUMIN,UR < 5.0 Normal NO RANGE EST. [facility] Comment on above: Order Comment: Order Date: 10/28/23Order Info: [id number] - MIACRE Performed By: #### L 500.4100, L500.4050, L501.9520, L502.0250, L506.0400 ####[facility] [address] [place], [address] T4 Free Directon 04-15-2024 T4 FREE DIRECT 1.12 ng/dL Normal 0.76-1.46 [facility] Comment on above: Order Comment: Order Date: 10/28/23Order Info: [id number] - CMPOrder Info: [id number] - LIPIDOrder Info: [id number] - TSHOrder Info: [id number] - T4F Performed By: #### L 500.4100, L500.4050, L501.9520, L502.0250, L506.0400 ####[facility] [address] [place], [address] Thyroid Stim Hormone (TSH)on 04-15-2024 TSH 0.364 uIU/mL Normal 0.358-3.740 [facility] Comment on above: Order Comment: Order Date: 10/28/23 Order Info: [id number] - CMP Order Info: [id number] - LIPID Order Info: [id number] - TSH Order Info: [id number] - T4F Performed By: #### L 500.4100, L500.4050, L501.9520, L502.0250, L506.0400 #### [facility] [address] [place], [address] Cardiology Visit Reporton Cardiology Visit Report [facility] [address] [place] [address] OFFICE VISIT Date of Service: 02/13/24 MR#: [id number] Acct: [id number] Name: LUIS RYAN Rep #: [id number] : 1950 Provider: Dr. Brenton Saul MD Age/Sex: 73/F [place] [facility] [place] Status: Signed HPI HPI History of Present Illness Details: This is a 73-year-old female with a strong family history of coronary artery disease with most family members succumbing to coronary disease between 65 and 70. You remember that she had undergone a coronary calcium score a few years ago which was noted to be elevated in the 75th and 90th percentile and she went on to undergo a stress echocardiogram where she exercised to a high metabolic workload without any evidence of ischemia or chest pain. She has had no dizziness or diaphoresis no near syncope or syncope. She underwent a cardiac catheterization in November 2022 demonstrating nonobstructive coronary arteries and preserved ejection fraction. The plan is to continue with aggressive medical therapy. Most recent lipid profile from January of this year demonstrates a total cholesterol 188, HDL of 84 and LDL of 94. Intake Vital Signs 11/30/22 09:46 12/17/22 07:45 02/13/24 14:52 Height 5 ft 2 in 5 ft 2 in 5 ft 2 in Weight: 153 lb 6 oz BMI 28.0 BP 135/84 H Blood Pressure Location Lt brachial Position Sitting Respiration 16 Pulse 68 Pulse Source Monitor Intake Visit Reasons: 1 Y FU Material Mover Required: No Accompanied by: Self Is patient in pain?: No Allergies amoxicillin Adverse Reaction (Verified 02/13/24 14:54) Rash Medications ???Medication ???Instructions ???Recorded ???Confirmed ???Type aspirin 81 mg tablet,delayed 81 mg PO DAILY 05/22/18 02/13/24 History release (Adult Low Dose Aspirin) vitamin B complex 1 tab PO DAILY 05/22/18 02/13/24 History losartan 100 mg tablet 100 mg PO DAILY #90 tabs 03/05/19 02/13/24 Rx calcium carbonate 600 mg-vitamin 1 cap PO BID 12/01/20 02/13/24 History D3 12.5 mcg (500 unit) capsule (Calcium 600 with Vitamin D3) hydrochlorothiazide 12.5 mg capsule 12.5 mg PO DAILY 12/01/20 02/13/24 History zinc 50 mg tablet 50 mg PO DAILY 12/01/20 02/13/24 History cholecalciferol (vitamin D3) 125 125 mcg PO .COMPLEX 12/05/21 02/13/24 History mcg (5,000 unit) tablet turmeric 400 mg capsule 400 mg PO DAILY 12/05/21 02/13/24 History levothyroxine 100 mcg tablet 100 mcg PO DAILY 11/30/22 02/13/24 History simvastatin 40 mg tablet See Rx Instructions .Route 09/17/23 02/13/24 Rx .COMPLEX #90 tabs Have you fallen in the past year?: No PFSH Medical History Dyslipidemia Calcific tendinitis of left shoulder Left shoulder pain Arthritis of left subtalar joint Left ankle pain Obesity Personal history of squamous cell carcinoma of skin 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) Skin lesion Chronic lymphocytic thyroiditis Thyroiditis Multiple thyroid nodules Abnormal cardiac CT angiography Hypothyroidism Osteopenia Essential (primary) hypertension Disorder of lipoid metabolism Bilateral rotator cuff syndrome Surgical History History of squamous cell carcinoma excision (06/2020) History of bunionectomy of right great toe History of trigger finger History of carpal tunnel release of both wrists Family History Father Heart disease CHF Diabetes Brother Myocardial infarction from [place] age 51 Brother CAD (coronary artery disease) stents Sister CAD (coronary artery disease) stents Social History Smoking Status: Former smoker how long ago did patient quit smokin years ago alcohol intake: current alcohol intake frequency: 0-2 drinks per day Alcohol type: beer and wine substance use type: does not use caffeine: Yes (occasional cup of coffee) ROS Const Const: Negative for fatigue, weakness, headache(s), daytime sleepiness or difficulty sleeping ENT ENT: Negative for headache(s), dizziness or Nosebleed/epistaxis Cardio Chest Pain: No Palpitations: No Edema: None Resp Respiratory: Negative for SOB with activity, SOB at rest, SOB orthopnea SOB lying down or Cough GI GI: Negative nausea, vomiting or heartburn Neuro Neuro: Negative for dizziness, lightheadedness, near syncope, headache(s) or weakness Endo Endo: Negative for fatigue Cardiology Exam Const Appearance: cooperative, healthy appearing, no acute distress, well developed and well groomed Nutritional Appearance: average body habitus and well nourished Orientation: alert, awake and oriented x3 Head Head: normal (more content not included)... Normal [facility] Lipid Profileon 02-03-2024 Cholesterol [Mass/Vol] 188 mg/dL Normal 200 [facility] Comment on above: Result Comment: <200 mg/dL Desirable 200-240 mg/dL Borderline >240 mg/dL High Risk Performed By: #### L 500.4100, L500.3400 ####[facility] [address] [place], [address] Cholesterol in HDL [Mass/Vol] 84 mg/dL Normal [facility] Comment on above: Result Comment: The drugs N-Acetylcysteine and Metamizole may falsely depress this assay. Reference Range HDL <40 mg/dL Low HDL Cholesterol HDL >or= 60 mg/dL High HDL Cholesterol Performed By: #### L 500.4100, L500.3400 ####[facility] [address] [place], [address] Cholesterol in LDL [Mass/Vol] 94 mg/dL Normal 0-130 [facility] Comment on above: Performed By: #### L 500.4100, L500.3400 ####[facility] [address] [place], [address] Cholesterol in VLDL [Mass/Vol] 10 mg/dL Normal 5-40 [facility] Comment on above: Performed By: #### L 500.4100, L500.3400 ####[facility] [address] [place], [address] Triglyceride [Mass/Vol] 51 mg/dL Normal [facility] Comment on above: Result Comment: The drugs N-Acetylcysteine and Metamizole may falsely depress this assay. Serum Triglycerides Reference Interval Normal <150 mg/dL Borderline high 150 - 199 mg/dL High 200 - 499 mg/dL Very High > or = 500 mg/dL Performed By: #### L 500.4100, L500.3400 ####[facility] [address] [place], [address] Liver Profileon 02-03-2024 Albumin [Mass/Vol] 3.9 g/dL Normal 3.2-5.0 [facility] Comment on above: Performed By: #### L 500.4100, L500.3400 ####[facility] [address] [place], [address] ALK P 73 U/L Normal 45-117 [facility] Comment on above: Performed By: #### L 500.4100, L500.3400 ####[facility] [address] [place], [address] ALT [Catalytic activity/Vol] 27 U/L Normal 13-56 [facility] Comment on above: Performed By: #### L 500.4100, L500.3400 ####[facility] [address] [place], [address] AST [Catalytic activity/Vol] 24 U/L Normal 15-37 [facility] Comment on above: Performed By: #### L 500.4100, L500.3400 ####[facility] [address] [place], [address] Bilirubin [Mass/Vol] 1.00 mg/dL Normal 0.20-1.00 [facility] Comment on above: Result Comment: For patients on eltrombopag therapy, use of Dimension [place] TBIL is not recommended. Performed By: #### L 500.4100, L500.3400 ####[facility] [address] [place], [address] Bilirubin.direct [Mass/Vol] 0.23 mg/dL Normal 0.00-0.30 [facility] Comment on above: Performed By: #### L 500.4100, L500.3400 ####[facility] [address] [place], [address] Globulin (S) [Mass/Vol] 3.4 g/dL Normal 2.2-4.2 [facility] Comment on above: Performed By: #### L 500.4100, L500.3400 ####[facility] [address] [place], [address] T PROT 7.3 g/dL Normal 6.4-8.2 [facility] Comment on above: Performed By: #### L 500.4100, L500.3400 ####[facility] [address] [place], [address] Basophil percentageOrdered B y: Zack Hinds on 10-14-2023 Chloride [Moles/Vol] 105 mmol/L 98-107 [facility] Glucose [Mass/Vol] 87 mg/dL 74-106 [facility] Potassium [Moles/Vol] 3.7 mmol/L 3.5-5.1 [facility] Sodium [Moles/Vol] 140 mmol/L 136-145 [facility] - Chemistry and C hemistry - challengeOrdered By: Zack Hinds on 10-14-2023 CO2 [Moles/Vol] 28.0 mmol/L 21.0-32.0 [facility] Urea nitrogen/Creatinine [Mass ratio] 15.0 mg/mg 10-20 [facility] No Panel InformationOrdered By: Zack Hinds on 10-14-2023 Estimated GFR (MDRD) Amer 100 mL/min >60 [facility] Comment on above: GFR Calc Estimated GFR (MDRD) Non-Af Amer 83 mL/min >60 [facility] Comment on above: Non- GFR Calc Free Triiodothyronine (T3) pg/dL 2.2 pg/mL 2.18-3.98 [facility] Serum or plasma calcium nancy urement (mass/volume)Ordered By: Zack Hinds on 10-14-2023 Calcium [Mass/Vol] 9.2 mg/dL 8.5-10.1 [facility] Serum or plasma creatinine m easurement (mass/volume)Ordered By: Zack Hinds on 10-14-2023 Creatinine [Mass/Vol] 0.73 mg/dL 0.55-1.02 [facility] Comment on above: The validity of the calculated GFR & GFRAA in patients over 70 years has not been determined. Clinical correlation is essential. Serum or plasma thyroid stim ulating hormone (TSH) measurement (units/volume)Ordered By: Zack Hinds on 10-14-2023 TSH Qn 1.24 uIU/mL 0.358-3.74 [facility] Serum or plasma urea nitroge n measurement (mass/volume)Ordered By: Zack Hinds on 10-14-2023 Urea nitrogen [Mass/Vol] 11 mg/dL 7-18 [facility] Thin prep Papanicolaou smear with manual screeningOrdered By: Zack Hinds on 10-14-2023 Thin prep Papanicolaou smear with manual screening 7 5-15 [facility] Thin prep Papanicolaou smear with manual screening 0.96 ng/dL 0.76-1.46 [facility] No Panel InformationOrdered By: Zack Hinds on 2023 Urine Microalbumin/Creatin ine Ratio TNP [facility] Comment on above: Test not performed Thin prep Papanicolaou smear with manual screeningOrdered By: Zack Hinds on 2023 Thin prep Papanicolaou smear with manual screening < 5.0 mg/L NO RANGE EST. [facility] Urine creatinine measurement (mass/volume)Ordered By: Zack Hinds on 2023 Creatinine (U) [Mass/Vol] 85.80 mg/dL NO RANGE EST. [facility] Basophil percentageOrdered B y: Zack Hinds on 04-08-2023 Bilirubin [Mass/Vol] 0.60 mg/dL 0.20-1.00 [facility] Comment on above: For patients on eltr ombopag therapy, use of Dimension [place] TBIL is not recommended. Chloride [Moles/Vol] 101 mmol/L 98-107 [facility] Cholesterol [Mass/Vol] 179 mg/dL <200 [facility] Comment on above: <200 mg/dL Desirable 200-240 mg/dL Borderline >240 mg/dL High Risk Glucose [Mass/Vol] 90 mg/dL 74-106 [facility] Potassium [Moles/Vol] 3.8 mmol/L 3.5-5.1 [facility] Protein [Mass/Vol] 6.9 g/dL 6.4-8.2 [facility] Sodium [Moles/Vol] 136 mmol/L 136-145 [facility] Triglyceride [Mass/Vol] 59 mg/dL <199 [facility] Comment on above: The drugs N-Acetylcy steine and Metamizole may falsely depress this assay.Serum Triglycerides Reference Interval Normal <150 mg/dL Borderline high 150 - 199 mg/dL High 200 - 499 mg/dL Very High > or = 500 mg/dL Laboratory - Chemistry and C hemistry - challengeOrdered By: Zack Hinds on 04-08-2023 ALP [Catalytic activity/Vol] 72 U/L 45-117 [facility] ALT [Catalytic activity/Vol] 23 U/L 13-56 [facility] CO2 [Moles/Vol] 27.0 mmol/L 21.0-32.0 [facility] Free T4 [Mass/Vol] 0.99 ng/dL 0.76-1.46 [facility] Globulin (S) [Mass/Vol] 3.3 g/dL 2.2-4.2 [facility] Urea nitrogen/Creatinine [Mass ratio] 19.6 mg/mg 10-20 [facility] No Panel InformationOrdered By: Zack Hinds on 04-08-2023 Estimated GFR (MDRD) Amer 89 mL/min >60 [facility] Comment on above: GFR Calc Estimated GFR (MDRD) Non-Af Amer 73 mL/min >60 [facility] Comment on above: Non- GFR Calc Free Triiodothyronine (T3) pg/dL 2.6 pg/mL 2.18-3.98 [facility] Thyroid Stimulating Hormone (TSH) 0.57 uIU/mL 0.358-3.74 [facility] Serum or plasma albumin nancy urement (mass/volume)Ordered By: Zack Hinds on 04-08-2023 Albumin [Mass/Vol] 3.6 g/dL 3.2-5.0 [facility] Serum or plasma albumin/glob ulin mass ratioOrdered By: Zack Hinds on 04-08-2023 Albumin/Globulin [Mass ratio] 1.1 {ratio} 0.9-2.4 [facility] Serum or plasma calcium nancy urement (mass/volume)Ordered By: Zack Hinds on 04-08-2023 Calcium [Mass/Vol] 8.7 mg/dL 8.5-10.1 [facility] Serum or plasma cholesterol in HDL measurement (mass/volume)Ordered By: Zack Hinds on 04-08-2023 Cholesterol in HDL [Mass/Vol] 77 mg/dL >40 [facility] Comment on above: The drugs N-Acetylcy steine and Metamizole may falsely depress this assay. Reference Range HDL <40 mg/dL Low HDL Cholesterol HDL >or= 60 mg/dL High HDL Cholesterol Serum or plasma cholesterol in VLDL measurement (mass/volume)Ordered By: Zack Hinds on 04-08-2023 Cholesterol in VLDL [Mass/Vol] 12 mg/dL 5-40 [facility] Serum or plasma creatinine m easurement (mass/volume)Ordered By: Zack Hinds on 04-08-2023 Creatinine [Mass/Vol] 0.82 mg/dL 0.55-1.02 [facility] Comment on above: The validity of the calculated GFR & GFRAA in patients over 70 years has not been determined. Clinical correlation is essential. Serum or plasma low density lipoprotein (LDL) cholesterol measurement (mass/volume)Ordered By: Zack Hinds on 04-08-2023 Cholesterol in LDL [Mass/Vol] 90 mg/dL 0-130 [facility] Serum or plasma urea nitroge n measurement (mass/volume)Ordered By: Zack Hinds on 04-08-2023 Urea nitrogen [Mass/Vol] 16 mg/dL 7-18 [facility] Thin prep Papanicolaou smear with manual screeningOrdered By: Zack Hinds on 04-08-2023 Thin prep Papanicolaou smear with manual screening 15 U/L 15-37 [facility] Thin prep Papanicolaou smear with manual screening 8 5-15 [facility] Absolute lymphocyte countOrd ered By: Dr. Saul on 12-03-2022 Lymphocytes Auto (Unsp spec) [#/Vol] 1.56 10*3/uL 0.83-4.51 [facility] Basophil percentageOrdered B y: Dr. Saul on 12-03-2022 Basophils/100 WBC (Bld) 1.0 % 0-1 [facility] Chloride [Moles/Vol] 104 mmol/L 98-107 [facility] Eosinophils/100 WBC (Bld) 1.7 % 0-5 [facility] Glucose [Mass/Vol] 86 mg/dL 74-106 [facility] Neutrophils (Bld) [#/Vol] 1.9 10*3/uL 2.0-7.7 [facility] Neutrophils/100 WBC (Bld) 45.9 % 47-70 [facility] Potassium [Moles/Vol] 3.7 mmol/L 3.5-5.1 [facility] Sodium [Moles/Vol] 141 mmol/L 136-145 [facility] WBC (Bld) [#/Vol] 4.1 10*3/uL 4.4-11.0 [facility] Basophil percentageOrdered B y: Jayda Haskins on 12-03-2022 Cholesterol [Mass/Vol] 191 mg/dL <200 [facility] Comment on above: <200 mg/dL Desirable 200-240 mg/dL Borderline >240 mg/dL High Risk Triglyceride [Mass/Vol] 87 mg/dL <199 [facility] Comment on above: The drugs N-Acetylcy steine and Metamizole may falsely depress this assay.Serum Triglycerides Reference Interval Normal <150 mg/dL Borderline high 150 - 199 mg/dL High 200 - 499 mg/dL Very High > or = 500 mg/dL Blood erythrocytes count (nu mber/volume)Ordered By: Dr. Saul on 12-03-2022 RBC (Bld) [#/Vol] 4.04 10*6/uL 4.2-5.4 [facility] Blood hemoglobin measurement (mass/volume)Ordered By: Dr. Saul on 12-03-2022 Hemoglobin (Bld) [Mass/Vol] 13.0 g/dL 12.0-15.0 [facility] Blood lymphocytes/100 leukoc ytesOrdered By: Dr. Saul on 12-03-2022 Lymphocytes/100 WBC (Bld) 38.2 % 19-41 [facility] Blood monocytes/100 leukocyt esOrdered By: Dr. Saul on 12-03-2022 Monocytes/100 WBC (Bld) 13.0 % 0-10 [facility] Blood platelet mean volumeOr dered By: Dr. Saul on 12-03-2022 Platelet mean volume (Bld) [Entitic vol] 10.1 fL 6.2-12.0 [facility] Determination of erythrocyte mean corpuscular volume (MCV)Ordered By: Dr. Saul on 12-03-2022 MCV (RBC) [Entitic vol] 98.3 fL 81-99 [facility] Hematocrit Auto (Bld) [Volum e fraction]Ordered By: Dr. Saul on 12-03-2022 Hematocrit (Bld) [Volume fraction] 39.7 % 37-47 [facility] Laboratory - Chemistry and C hemistry - challengeOrdered By: Dr. Saul on 12-03-2022 CO2 [Moles/Vol] 32.0 mmol/L 21.0-32.0 [facility] Urea nitrogen/Creatinine [Mass ratio] 23.2 mg/mg 10-20 [facility] - Chemistry and C hemistry - challengeOrdered By: Dr. Hinds on 12-03-2022 Free T4 [Mass/Vol] 1.06 ng/dL 0.76-1.46 [facility] - Hematology and Cell countsOrdered By: Dr. Saul on 12-03-2022 Erythrocyte distribution width (RBC) [Entitic vol] 44.5 fL 35.1-43.9 [facility] Erythrocyte distribution width (RBC) [Ratio] 12.3 % 11.6-14.6 [facility] Immature granulocytes/100 WBC (Bld) 0.200 % 0.0-0.9 [facility] Comment on above: IG% - Immature Granu locytes (promyelocytes, myelocytes and metamyelocytes) > 1% indicates that a LEFT SHIFT is Present. MCH (RBC) [Entitic mass] 32.2 pg 27.0-32.0 [facility] Nucleated RBC/100 WBC (Bld) [Ratio] 0 % 0-5 [facility] Auto (RBC) [Mass/Vol]Or dered By: Dr. Saul on 12-03-2022 MCHC (RBC) [Mass/Vol] 32.7 g/dL 32-36 [facility] No Panel InformationOrdered By: Dr. Saul on 12-03-2022 Estimated GFR (MDRD) Amer 108 mL/min >60 [facility] Comment on above: GFR Calc Estimated GFR (MDRD) Non-Af Amer 89 mL/min >60 [facility] Comment on above: Non- GFR Calc No Panel InformationOrdered By: Dr. Hinds on 12-03-2022 Free Triiodothyronine (T3) pg/dL 2.3 pg/mL 2.18-3.98 [facility] Thyroid Stimulating Hormone (TSH) 0.86 uIU/mL 0.358-3.74 [facility] Platelets bldOrdered By: Dr. Saul on 12-03-2022 Platelets (Bld) [#/Vol] 194 10*3/uL 150-450 [facility] Serum or plasma calcium nancy urement (mass/volume)Ordered By: Dr. Saul on 12-03-2022 Calcium [Mass/Vol] 9.4 mg/dL 8.5-10.1 [facility] Serum or plasma cholesterol in HDL measurement (mass/volume)Ordered By: Jayda Haskins on 12-03-2022 Cholesterol in HDL [Mass/Vol] 78 mg/dL >40 [facility] Comment on above: The drugs N-Acetylcy steine and Metamizole may falsely depress this assay. Reference Range HDL <40 mg/dL Low HDL Cholesterol HDL >or= 60 mg/dL High HDL Cholesterol Serum or plasma cholesterol in VLDL measurement (mass/volume)Ordered By: Jayda Haskins on 12-03-2022 Cholesterol in VLDL [Mass/Vol] 17 mg/dL 5-40 [facility] Serum or plasma creatinine m easurement (mass/volume)Ordered By: Dr. Saul on 12-03-2022 Creatinine [Mass/Vol] 0.69 mg/dL 0.55-1.02 [facility] Comment on above: The validity of the calculated GFR & GFRAA in patients over 70 years has not been determined. Clinical correlation is essential. Serum or plasma low density lipoprotein (LDL) cholesterol measurement (mass/volume)Ordered By: Jayda Haskins on 12-03-2022 Cholesterol in LDL [Mass/Vol] 96 mg/dL 0-130 [facility] Serum or plasma urea nitroge n measurement (mass/volume)Ordered By: Dr. Saul on 12-03-2022 Urea nitrogen [Mass/Vol] 16 mg/dL 7-18 [facility] Thin prep Papanicolaou smear with manual screeningOrdered By: Dr. Saul on 12-03-2022 Thin prep Papanicolaou smear with manual screening 5 5-15 [facility] Basophil percentageOrdered B y: Dr. Hinds on 08-13-2022 Bilirubin [Mass/Vol] 0.60 mg/dL 0.20-1.00 [facility] Comment on above: For patients on eltr ombopag therapy, use of Dimension [place] TBIL is not recommended. Chloride [Moles/Vol] 102 mmol/L 98-107 [facility] Glucose [Mass/Vol] 102 mg/dL 74-106 [facility] Comment on above: Fasting Glucose resu lt from 100 to 125 mg/dL suggests IMPAIRED HOMEOSTASIS per A.D.A. criteria. Potassium [Moles/Vol] 3.9 mmol/L 3.5-5.1 [facility] Protein [Mass/Vol] 7.3 g/dL 6.4-8.2 [facility] Sodium [Moles/Vol] 138 mmol/L 136-145 [facility] Laboratory - Chemistry and C hemistry - challengeOrdered By: Dr. Hinds on 08-13-2022 ALP [Catalytic activity/Vol] 64 U/L 45-117 [facility] ALT [Catalytic activity/Vol] 29 U/L 13-56 [facility] CO2 [Moles/Vol] 30.0 mmol/L 21.0-32.0 [facility] Free T4 [Mass/Vol] 0.95 ng/dL 0.76-1.46 [facility] Globulin (S) [Mass/Vol] 3.5 g/dL 2.2-4.2 [facility] Urea nitrogen/Creatinine [Mass ratio] 18.9 mg/mg 10-20 [facility] No Panel InformationOrdered By: Dr. Hinds on 08-13-2022 Estimated GFR (MDRD) Amer 92 mL/min >60 [facility] Comment on above: GFR Calc Estimated GFR (MDRD) Non-Af Amer 76 mL/min >60 [facility] Comment on above: Non- GFR Calc Free Triiodothyronine (T3) pg/dL 1.9 pg/mL 2.18-3.98 [facility] Thyroid Stimulating Hormone (TSH) 2.50 uIU/mL 0.358-3.74 [facility] Vitamin D 25-Hydroxy 72.5 ng/mL [facility] Comment on above: Vitamin D 25(OH) Sta tus Range Deficiency <20 ng/mL (50nmol/L) Insufficiency 20 - 30 ng/mL (50 - 75 nmol/L) Sufficiency 30 - 100 ng/mL (75 - 250 nmol/L) Toxicity >100 ng/mL (>250 nmol/L) Serum or plasma albumin nancy urement (mass/volume)Ordered By: Dr. Hinds on 08-13-2022 Albumin [Mass/Vol] 3.8 g/dL 3.2-5.0 [facility] Serum or plasma albumin/glob ulin mass ratioOrdered By: Dr. Hinds on 08-13-2022 Albumin/Globulin [Mass ratio] 1.1 {ratio} 0.9-2.4 [facility] Serum or plasma calcium nancy urement (mass/volume)Ordered By: Dr. Hinds on 08-13-2022 Calcium [Mass/Vol] 9.2 mg/dL 8.5-10.1 [facility] Serum or plasma creatinine m easurement (mass/volume)Ordered By: Dr. Hinds on 08-13-2022 Creatinine [Mass/Vol] 0.80 mg/dL 0.55-1.02 [facility] Comment on above: The validity of the calculated GFR & GFRAA in patients over 70 years has not been determined. Clinical correlation is essential. Serum or plasma urea nitroge n measurement (mass/volume)Ordered By: Dr. Hinds on 08-13-2022 Urea nitrogen [Mass/Vol] 15 mg/dL 7-18 [facility] Thin prep Papanicolaou smear with manual screeningOrdered By: Dr. Hinds on 08-13-2022 Thin prep Papanicolaou smear with manual screening 17 U/L 15-37 [facility] Thin prep Papanicolaou smear with manual screening 6 5-15 [facility] Laboratory - Chemistry and C hemistry - challengeon 04-23-2022 Free T4 [Mass/Vol] 1.13 ng/dL 0.76-1.46 [facility] Work Phone: No Panel Informationon 04-23 Thyroglobulin Antibody < 1.0 IU/mL 0.0-0.9 [facility] Work Phone: Comment on above: Thyroglobulin Antibo dy measured by Talisha CoulterMethodology Thyroglobulin Level 76.9 ng/mL 1.5-38.5 [facility] Work Phone: Comment on above: According to the [facility] Academy of Clinical Biochemistry,the reference interval for Thyroglobulin (TG) should berelated to euthyroid patients and not for patients whounderwent thyroidectomy. TG reference intervals for thesepatients depend on the residual mass of the thyroid tissueleft after surgery. Establishing a post-operative baselineis recommended. The assay limit of quantitation is 0.1ng/mLThyroglobulin measured by Talisha [place] ImmunometricAssayPerformed at: [facility] [email or web address] [place], [place] [id number] Director: Joby Hart PhD, Phone: [phone] Thyroid Stimulating Hormone (TSH) 0.46 uIU/mL 0.358-3.74 [facility] Work Phone: Basophil percentageon 2021 Cholesterol [Mass/Vol] 182 mg/dL <200 [facility] Work Phone: Comment on above: <200 mg/dL Desirable 200-240 mg/dL Borderline >240 mg/dL High Risk Cholesterol in LDL Direct as say [Mass/Vol]on 02-16-2022 Cholesterol in LDL [Mass/Vol] 115 mg/dL 0-99 [facility] Work Phone: Comment on above: Performed at: [facility] [email or web address] [place], [place] [id number] Director: Joby Hart PhD, Phone: [phone] Laboratory - Chemistry and C hemistry - challengeon 02-16-2022 Free T4 [Mass/Vol] 1.25 ng/dL 0.76-1.46 [facility] Work Phone: Laboratory - Miscellaneous t estson 02-16-2022 Service comment (Unsp spec) [Interp] TNP [facility] Work Phone: Comment on above: Test not performed No Panel Informationon 02-16 Free Triiodothyronine (T3) pg/dL 2.5 pg/mL 2.18-3.98 [facility] Work Phone: Serum or plasma cholesterol in HDL measurement (mass/volume)on 02-16-2022 Cholesterol in HDL [Mass/Vol] 68 mg/dL >40 [facility] Work Phone: Comment on above: The drugs N-Acetylcy steine and Metamizole may falsely depress this assay. Reference Range HDL <40 mg/dL Low HDL Cholesterol HDL >or= 60 mg/dL High HDL Cholesterol Basophil percentageon 2021 Bilirubin [Mass/Vol] 0.70 mg/dL 0.20-1.00 [facility] Work Phone: Comment on above: For patients on eltr ombopag therapy, use of Dimension [place] TBIL is not recommended. Chloride [Moles/Vol] 102 mmol/L 98-107 [facility] Work Phone: Cholesterol [Mass/Vol] 189 mg/dL <200 [facility] Work Phone: Comment on above: <200 mg/dL Desirable 200-240 mg/dL Borderline >240 mg/dL High Risk Glucose [Mass/Vol] 92 mg/dL 74-106 [facility] Work Phone: Potassium [Moles/Vol] 3.8 mmol/L 3.5-5.1 [facility] Work Phone: Protein [Mass/Vol] 7.1 g/dL 6.4-8.2 [facility] Work Phone: Sodium [Moles/Vol] 138 mmol/L 136-145 [facility] Work Phone: Triglyceride [Mass/Vol] 60 mg/dL <199 [facility] Work Phone: Comment on above: The drugs N-Acetylcy steine and Metamizole may falsely depress this assay.Serum Triglycerides Reference Interval Normal <150 mg/dL Borderline high 150 - 199 mg/dL High 200 - 499 mg/dL Very High > or = 500 mg/dL Laboratory - Chemistry and C hemistry - challengeon 02-12-2022 ALP [Catalytic activity/Vol] 66 U/L 45-117 [facility] Work Phone: ALT [Catalytic activity/Vol] 28 U/L 13-56 [facility] Work Phone: CO2 [Moles/Vol] 30.0 mmol/L 21.0-32.0 [facility] Work Phone: Free T4 [Mass/Vol] 1.20 ng/dL 0.76-1.46 [facility] Work Phone: Globulin (S) [Mass/Vol] 3.5 g/dL 2.2-4.2 [facility] Work Phone: Urea nitrogen/Creatinine [Mass ratio] 16.2 mg/mg 10-20 [facility] Work Phone: No Panel Informationon 02-12 Estimated GFR (MDRD) Amer 100 mL/min >60 [facility] Work Phone: Comment on above: GFR Calc Estimated GFR (MDRD) Non-Af Amer 82 mL/min >60 [facility] Work Phone: Comment on above: Non- GFR Calc Free Triiodothyronine (T3) pg/dL 2.7 pg/mL 2.18-3.98 [facility] Work Phone: Thyroid Stimulating Hormone (TSH) 0.18 uIU/mL 0.358-3.74 [facility] Work Phone: Urine Microalbumin/Creatin ine Ratio TNP [facility] Work Phone: Comment on above: Test not performed Serum or plasma albumin nancy urement (mass/volume)on 02-12-2022 Albumin [Mass/Vol] 3.6 g/dL 3.2-5.0 [facility] Work Phone: Serum or plasma albumin/glob ulin mass ratioon 02-12-2022 Albumin/Globulin [Mass ratio] 1.0 {ratio} 0.9-2.4 [facility] Work Phone: Serum or plasma calcium nancy urement (mass/volume)on 02-12-2022 Calcium [Mass/Vol] 9.1 mg/dL 8.5-10.1 [facility] Work Phone: Serum or plasma cholesterol in HDL measurement (mass/volume)on 02-12-2022 Cholesterol in HDL [Mass/Vol] 69 mg/dL >40 [facility] Work Phone: Comment on above: The drugs N-Acetylcy steine and Metamizole may falsely depress this assay. Reference Range HDL <40 mg/dL Low HDL Cholesterol HDL >or= 60 mg/dL High HDL Cholesterol Serum or plasma cholesterol in VLDL measurement (mass/volume)on 02-12-2022 Cholesterol in VLDL [Mass/Vol] 12 mg/dL 5-40 [facility] Work Phone: Serum or plasma creatinine m easurement (mass/volume)on 02-12-2022 Creatinine [Mass/Vol] 0.74 mg/dL 0.55-1.02 [facility] Work Phone: Comment on above: The validity of the calculated GFR & GFRAA in patients over 70 years has not been determined. Clinical correlation is essential. Serum or plasma low density lipoprotein (LDL) cholesterol measurement (mass/volume)on 02-12-2022 Cholesterol in LDL [Mass/Vol] 108 mg/dL 0-130 [facility] Work Phone: Serum or plasma urea nitroge n measurement (mass/volume)on 02-12-2022 Urea nitrogen [Mass/Vol] 12 mg/dL 7-18 [facility] Work Phone: Thin prep Papanicolaou smear with manual screeningon 02-12-2022 Thin prep Papanicolaou smear with manual screening 22 U/L 15-37 [facility] Work Phone: Thin prep Papanicolaou smear with manual screening 6 5-15 [facility] Work Phone: Thin prep Papanicolaou smear with manual screening < 5.0 mg/L NO RANGE EST. [facility] Work Phone: Urine creatinine measurement (mass/volume)on 02-12-2022 Creatinine (U) [Mass/Vol] 65.60 mg/dL NO RANGE EST. [facility] Work Phone: Vital Signs Date Time Vital Sign Value Performing Clinician Faci lity 07-05-2024 11:08-0500 Body height 157.[address] Zack Hinds MD Work Phone: [facility] 07-05-2024 11:08-0500 Body mass index (BMI) [Ratio] 27.3 kg/m2 Dr. Zack Hinds MD Work Phone: [facility] 07-05-2024 11:08-0500 Body temperature 97.5 [degF] Dr. Zack Hinds MD Work Phone: [facility] 07-05-2024 11:08-0500 Body weight 67.[address] Zack Hinds MD Work Phone: [facility] 07-05-2024 11:08-0500 Diastolic blood pressure 78 mm[Hg] Dr. Zack Hinds MD Work Phone: [facility] 07-05-2024 11:08-0500 Heart rate 71 /min Dr. Zack Hinds MD Work Phone: [facility] 07-05-2024 11:08-0500 Respiratory rate 18 /min Dr. Zack Hinds MD Work Phone: [facility] 07-05-2024 11:08-0500 SaO2% (BldA) [Mass fraction] 98 % Dr. Zack Hinds MD Work Phone: [facility] 07-05-2024 11:08-0500 Systolic blood pressure 128 mm[Hg] Dr. Zack Hinds MD Work Phone: [facility] 06-23-2024 08:02-0500 Body mass index (BMI) [Ratio] 27.8 kg/m2 Dr. Zack Hinds MD Work Phone: [facility] 06-23-2024 08:02-0500 Body weight 66.[address] Zack Hinds MD Work Phone: [phone] [place] [address] 12-17-2022 07:45-0400 Body height 157.48 cm [facility] 12-17-2022 07:45-0400 Body weight 68.49 kg [facility] 12-14-2022 09:36-0400 Body mass index (BMI) [Ratio] 27.6 kg/m2 [facility] 11-30-2022 14:34-0400 Body weight 68.[address] Zack Hinds Work Phone: [facility] 11-30-2022 14:34-0400 Diastolic blood pressure 87 mm[Hg] Dr. Zack Hinds Work Phone: [facility] 11-30-2022 14:34-0400 Heart rate 82 /min Dr. Zack Hinds Work Phone: [facility] 11-30-2022 14:34-0400 Respiratory rate 18 /min Dr. Zack Hinds Work Phone: [facility] 11-30-2022 14:34-0400 Systolic blood pressure 138 mm[Hg] Dr. Zack Hinds Work Phone: [facility] 11-30-2022 09:46-0400 Body height 157.[address] Zack Hinds Work Phone: [facility] 07-10-2022 15:27-0500 Body height 157.[address] Zack Hinds Work Phone: [facility] 07-10-2022 15:27-0500 Body mass index (BMI) [Ratio] 26.9 kg/m2 Dr. Zack Hinds Work Phone: [facility] 07-10-2022 15:27-0500 Body weight 66.[address] Zack Hinds Work Phone: [facility] 12-05-2021 13:58-0400 Body height 157.[address] Zack Hinds Work Phone: [facility] Work Phone: 12-05-2021 13:58-0400 Body mass index (BMI) [Ratio] 28 kg/m2 Dr. Zack Hinds Work Phone: [facility] Work Phone: 12-05-2021 13:58-0400 Body weight 69.[address] Zack Hinds Work Phone: [facility] Work Phone: 12-05-2021 13:58-0400 Diastolic blood pressure 96 mm[Hg] Dr. Zack Hinds Work Phone: [facility] Work Phone: 12-05-2021 13:58-0400 Heart rate 73 /min Dr. Zack Hinds Work Phone: [facility] Work Phone: 12-05-2021 13:58-0400 Respiratory rate 16 /min Dr. Zack Hinds Work Phone: [facility] Work Phone: 12-05-2021 13:58-0400 Systolic blood pressure 171 mm[Hg] Dr. Zack Hinds Work Phone: [facility] Work Phone: Encounters Encounter Date Encounter Type Care Provider Facility Start: 10-19-2024 End: 10-19-[address] Zack Hinds MD Work Phone: [facility] Work Phone: Start: 10-19-2024 End: 10-19-[address] Zack Hinds MD -Ultrasound, [facility] Work Phone: Start: 10-19-2024 End: 10-19-2024 ambulatory Zack Hinds Facility:[facility] Start: 10-08-2024 End: 10-08-[address] Zack Hinds MD Work Phone: [facility] Work Phone: Start: 10-08-2024 End: 10-08-[address] [facility] [place] [facility]: Start: 10-08-2024 End: 10-08-2024 ambulatory Zack Hinds Facility:[facility] Start: 07-05-2024 End: 07-05-2024 Patient encounter procedure Eyad Knutson NP-C -[facility] Work Phone: Start: 07-05-2024 End: 07-05-2024 ambulatory Zack Hinds Facility:[facility] Start: 06-23-2024 End: 06-23-[address] Florin Calderón MD -[facility] Work Phone: Start: 06-23-2024 End: 06-23-2024 ambulatory Zack Hinds Facility:[facility] Start: 06-04-2024 End: 06-04-2024 ambulatory Zack Hinds Facility:[facility] Start: 04-15-2024 End: 04-15-2024 ambulatory Zack Hinds Facility:[facility] Start: 02-13-2024 End: 02-13-2024 ambulatory Brenton Saul Facility:[facility] Start: 02-03-2024 End: 02-03-2024 ambulatory Zack Hinds Facility:[facility] Start: 10-14-2023 End: 10-14-2023 ambulatory [facility] Work Phone: Start: 10-14-2023 End: 10-14-2023 Patient encounter procedure [facility] Work Phone: Start: 2023 End: 2023 ambulatory [facility] Work Phone: Start: 2023 End: 2023 [facility] Work Phone: Start: 04-08-2023 End: 04-08-2023 ambulatory [facility] Work Phone: Start: 04-08-2023 End: 04-08-2023 Patient encounter procedure [facility] Work Phone: Start: 12-17-2022 End: 12-17-2022 Admission to same day surgery center [facility]-Non Linear Editor/Special Procedures Work Phone: Start: 12-03-2022 End: 12-03-[address] Zack Hinds Work Phone: [facility] Work Phone: Start: 12-03-2022 End: 12-03-[address] [facility] Start: 11-30-2022 End: 11-30-[address] Zcak Hinds Work Phone: [facility] Start: 08-13-2022 End: 08-13-[address] Zack Hinds Work Phone: [facility] Work Phone: Start: 08-13-2022 End: 08-13-[address] Zack Hinds Work Phone: [facility] Start: 07-19-2022 End: 07-19-[address] Zack Hinds Work Phone: [facility] Start: 07-10-2022 End: 07-10-[address] Zack Hinds Work Phone: [facility] Start: 04-23-2022 End: 09-26-2022 ambulatory [facility] Work Phone: Start: 04-23-2022 End: 04-23-2022 Patient encounter procedure [facility] Start: 02-16-2022 End: 02-16-2022 Patient encounter procedure [facility] Start: 02-12-2022 End: 02-12-[address] Zack Hinds Work Phone: [facility] Start: 12-05-2021 End: 12-05-[address] Zack Hinds Work Phone: [facility] Procedures Date Procedure Procedure Detail Performing Clinician Start: 10-19-2024 US scan of thyroid Dr. Zack Hinds MD Work Phone: Start: 12-03-2022 Plain chest X-ray Dr. Kalina Hinds Work Phone: Start: 07-19-2022 Plain X-ray of shoulder Dr. Zack Hinds Work Phone: Start: 07-10-[address] Jai Hinds Work Phone: Start: 07-10-2022 X-ray of both feet Dr. Zack Hinds Work Phone: Plan of Treatment Date Care Activity Detail Author Start: 11-30-2022 Evaluation of diagno stic study results [facility] Start: 07-31-2022 Patient referral [facility] Work Phone: Catheterization of left heart [facility] Patient referral [facility] Work Phone: Payers Date Payer Category Payer Medicare PLAN G 2024 Self-pay [id number] 2022 Medicare [id number] 2022 Unknown [id number] Unknown [id number] Unknown [id number] 2.16.8 [id number] Unknown [id number] 2.16.8 [id number] Unknown [id number] 2.16.8 [id number] Unknown [id number] 2.16.8 [id number] Unknown [id number] 2.16.8 [id number] Unknown [id number] 2.16.8 [id number] Unknown [id number] 2.16.8 [id number] Unknown [id number] 2.16.8 [id number] Social History Date Type Detail Facility Start: 09-19-2020 End: 12-17-2022 Tobacco smoking status NVIS Unknown if ever smoked [facility] Start: 1950 Sex Assigned At Female [facility] Start: 07-05-2024 Tobacco smoking stat us NVIS Ex-smoker (finding) [facility] Start: 10-18-2024 End: 10-24-2024 Sex Female (finding) [facility] Clinical Notes 02-17-2021 to 10-19-2024 Note Date & Type Note Facility 10-19-2024 Radiology Diagnostic study note [facility] Imaging Services [address] [place] [address] Thyroid MR#: [id number] Acct: [id number] Name: LUIS RYAN Rep #: [id number] : 1950 F 74 From: Alta Hernadez MD PCP: Dr. 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 FINDINGS: Right thyroid lobe measures 2.3 x 0.7 x 0.7 cm. Left thyroid lobe measures 1.8 x 1.0 x 0.7 cm. Isthmus thickness is0.1 cm. Thyroid Size: Normal Background Echotexture: Heterogeneous Thyroid Nodules: One isthmus/left thyroid nodule measured. The nodule measures 2.0 x 1.6 x 1.3 cm, mixed cystic and solid, isoechoic, wider than tall, smooth margins without calcifications. TR 2, not suspicious. US/Thyroid IMPRESSION: TR-2 isthmus/left thyroid nodule, which does not meet criteria for dedicated follow-up by ACR TI-RADS criteria. Further follow-up imaging not indicated. Reading Location: [facility] CC: Dr. Zack Hinds MD ~ Business Office Coordinator: Signed [facility] 07-05-2024 Evaluation note Diagnosis Onset Date Resolution Pharyngitis acute July 05, 2024 10:18am [facility] Work Phone: 1([phone]) 266-714311-26-2024 Evaluation note* Diagnosis Onset Date Resolution Status Admit Date Rupture of right long head biceps tendon acute June 23, 2 024 7:54am Pharyngitis acute July 05, 2024 10:18am [facility] Work Phone: 1(964) 440-531109-21-2021 NotePatient Outreach ([facility]) LUIS RYAN ([id number]) 1950 F Date Time Provider Department 04/18/21 KEYLA OLIVEIRA [facility] During your visit today, we recorded the following information about you: Keyla Oliveira MA 04/19/2021 2:46 PM Addendum POPULATION HEALTH NAVIGATION OUTREACH Action/FYI HANDY Luis returned my call. She has a new PCP outside [facility], doesn't want to give the name. Health Maintenance items due: NEEDS NEW PCP ANNUAL MEDICARE WELLNESS BP CONTROLLED (<130/80) Never done MAMMOGRAM due on 08/10/2020 COLORECTAL CANCER SCREENING due on 08/15/2020 LDL CHOLESTEROL due on 01/03/2021 ANNUAL PCP TEAM CHRONIC DISEASE VISIT due on 01/18/2021 INFLUENZA(1) due on 03/29/2021 Contact made with patient or family member? NO Pt identified by name and : NO Outreach Outcome/Action Unable to reach patient: Left message Reason for Outreach Care Gap or Scheduling/Wellness visits Payer: Payor: HOSPITAL/MEDICAL GENERIC / Plan: MEDICAL GENERIC / Product Type: Indemnity / Care Gap Reviewed:: Annual Wellness visit Breast Cancer screening Controlling Blood Pressure Colorectal Cancer Screening Flu vaccine Smoking cessation [facility] only Reminder: Reminder note to check Health Maintenance for items below Health Maintenance items due: COVID-19 VACCINE(1) Never done BP CONTROLLED (<130/80) Never done SHINGRIX VACCINE(2 of 3) due on 11/12/2013 BONE DENSITY due on 2017 DEPRESSION SCREENING due on 07/08/2018 MAMMOGRAM due on 08/10/2020 COLORECTAL CANCER SCREENING due on 08/15/2020 LDL CHOLESTEROL due on 01/03/2021 ANNUAL PCP TEAM CHRONIC DISEASE VISIT due on 01/18/2021 INFLUENZA(1) due on 03/29/2021 Advanced Directives Completed: Have you ever planned for future healthcare decisions with a power of trust and estates attorney, living will, or advance directives? Yes. Have you shared those records with your doctor? Yes Referrals: N/A Message Sent to Practice: NO Navigation Signature: Keyla Oliveira MA April 18, 2021 9:42 AM Allergies As of Date: 04/18/2021 Noted Allergy Reaction AMOXICILLIN 02/21/2008 2 - Rash ANCEF (CEFAZOLIN) 01/22/2014 2 - Rash Date Reviewed: 01/19/2020 Reviewed by: Elena ([facility]) TRUNG Valadez - Fully Assessed Reason for Visit: Population Health Navigation Outreach [3910] Cmt: SHANNAN HECK PCSA Prescriptions as of 04/19/2021 - Hydrochlorothiazide 12.5 mg capsule Take 1 capsule by mouth once daily. - levothyroxine (SYNTHROID) 125 mcg tablet 125 mcg daily Mon-Sat. Take on empty stomach. For Thyroid - losartan (COZAAR) 50 mg tablet Take 2 tablets by mouth once daily. - simvastatin (ZOCOR) 20 mg tablet Take 1 tablet by mouth daily at bedtime. - Calcium Carbonate-Vitamin D3 (VITAMIN D-3) 180-5,000 mg-unit tab Take by mouth. - vitamin b complex (B COMPLETE) ORAL Tab Take 1 tablet by mouth once daily. - aspirin(ADULT LOW DOSE ASPIRIN 81 MG TAB, DELAYED RELEASE) Take one(1) tablet daily. Meds Comments as of 09/09/2015: Problem List As Of Date 04/18/2021 Noted Resolved Obesity, unspecified [E66.9] 02/21/2008 01/07/2017 OSTEOPENIA [M89.9, M94.9] 02/21/2008 BENIGN HYPERTENSION [I10] 02/21/2008 Hypothyroidism [E03.9] 02/21/2008 Family history of heart disease [Z82.49] 02/21/2008 FAMILY HX DIABETES MELLITUS [Z83.3] 02/21/2008 Carpal tunnel syndrome, bilateral [G56.03] 09/17/2013 05/11/2019 Trigger thumb of right hand [M65.311] 09/17/2013 05/11/2019 Hyperlipidemia LDL goal <100 [E78.5] 06/19/2016 Bilateral rotator cuff syndrome [M75.101, M75.1*06/19/2016 05/11/2019 ASHD (arteriosclerotic heart disease) [I25.10] 05/22/2018 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 Author Type: Desktop Manager Type: Progress Notes Filed: 04/19/2021 2:46 PM Note Text: POPULATION HEALTH NAVIGATION OUTREACH Action/FYI HANDY Elias returned my call. She has a new PCP outside [facility], doesn't want to give the name. Health Maintenance items due: NEEDS NEW PCP ANNUAL MEDICARE WELLNESS BP CONTROLLED (<130/80) Never done MAMMOGRAM due on 08/10/2020 COLORECTAL CANCER SCREENING due on 08/15/2020 LDL CHOLESTEROL due on 01/03/2021 ANNUAL PCP TEAM CHRONIC DISEASE VISIT due on 01/18/2021 INFLUENZA(1) due on 03/29/2021 Contact made with patient or family member? NO Pt identified by name and : NO Outreach Outcome/Action Unable to reach patient: Left message Reason for Outreach Care Gap or Scheduling/Wellness visits Payer: Payor: HOSPITAL/MEDICAL GENERIC / Plan: MEDICAL GENERIC / Product Type: Indemnity / Care Gap Reviewed:: Annual Wellness visit Breast Cancer screening Controlling Blood Pressure Colorectal Cancer Screening Flu vaccine Smoking cessation ACO only Reminder: Reminder note to check Health Maintenance for items below Health Maintenance items due: COVID-19 VACCINE(1) Never done BP CONTROLLED (<130/80) Never done SHINGRIX VACCINE(2 of 3) due on 11/12/2013 BONE DENSITY due on 2017 DEPRESSION SCREENING due on 07/08/2018 MAMMOGRAM due on 08/10/2020 COLORECTAL CANCER SCREENING due on 08/15/2020 LDL CHOLESTEROL due on 01/03/2021 ANNUAL PCP TEAM CHRONIC DISEASE VISIT due on 01/18/2021 INFLUENZA(1) due on 03/29/2021 Advanced Directives Completed: Have you ever planned for future healthcare decisions with a power of trust and estates attorney, living will, or advance directives? Yes. Have you shared those records with your doctor? Yes Referrals: N/A Message Sent to Practice: NO Navigation Signature: Keyla Oliveira MA April 18, 2021 9:42 [facility]07-23-2021 NotePatient Outreach (INTMMN) LUIS RYAN ([id number]) 1950 F Date Time Provider Department 02/17/21 LUIS A CRAMER III During your visit today, we recorded the following information about you: Allergies As of Date: 02/17/2021 Noted Allergy Reaction AMOXICILLIN 02/21/2008 2 - Rash ANCEF (CEFAZOLIN) 01/22/2014 2 - Rash Date Reviewed: 01/19/2020 Reviewed by: Elena ([facility]) TRUNG Valadez - Fully Assessed Visit Diagnosis:Encounter for screening mammogram for breast cancer [Z12.31] Order(s):[facility] SCREENING [[id number]] Order #: [id number] FUTURE Prescriptions as of 02/20/2021 - Hydrochlorothiazide 12.5 mg capsule Take 1 capsule by mouth once daily. - levothyroxine (SYNTHROID) 125 mcg tablet 125 mcg daily Mon-Sat. Take on empty stomach. For Thyroid - losartan (COZAAR) 50 mg tablet Take 2 tablets by mouth once daily. - simvastatin (ZOCOR) 20 mg tablet Take 1 tablet by mouth daily at bedtime. - Calcium Carbonate-Vitamin D3 (VITAMIN D-3) 180-5,000 mg-unit tab Take by mouth. - vitamin b complex (B COMPLETE) ORAL Tab Take 1 tablet by mouth once daily. - aspirin(ADULT LOW DOSE ASPIRIN 81 MG TAB, DELAYED RELEASE) Take one(1) tablet daily. Meds Comments as of 09/09/2015: Problem List As Of Date 02/17/2021 Noted Resolved Obesity, unspecified [E66.9] 02/21/2008 01/07/2017 OSTEOPENIA [M89.9, M94.9] 02/21/2008 BENIGN HYPERTENSION [I10] 02/21/2008 Hypothyroidism [E03.9] 02/21/2008 Family history of heart disease [Z82.49] 02/21/2008 FAMILY HX DIABETES MELLITUS [Z83.3] 02/21/2008 Carpal tunnel syndrome, bilateral [G56.03] 09/17/2013 05/11/2019 Trigger thumb of right hand [M65.311] 09/17/2013 05/11/2019 Hyperlipidemia LDL goal <100 [E78.5] 06/19/2016 Bilateral rotator cuff syndrome [M75.101, M75.1*06/19/2016 05/11/2019 ASHD (arteriosclerotic heart disease) [I25.10] 05/22/2018 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] 10/29/2019 Pyoderma [L08.0] 01/11/2020 Vitamin D deficiency [E55.9] 01/11/2020 Loss of height [R29.890] 01/11/2020 Encounter Status:Closed by ELLEN PRODUSER on 02/20/21[facility] Evaluation note* Diagnosis Onset Date Resolution Status Disorder of lipoid metabolism chronic Essential (primary) hypertension [facility] Work Phone: Evaluation noteNo assessment information available [facility] Work Phone: Evaluation note* Diagnosis Onset Date Resolution Status Arthritis of left subtalar joint acute Left ankle pain acute Calcific tendinitis of left shoulder acute Left shoulder pain acute [facility] Work Phone: Evaluation note* Diagnosis Onset Date Resolution Status Chest discomfort acute Essential (primary) hypertension [facility] Work Phone: Reason for referral (narrative)No reason for referral [facility] Work Phone: Summary Purpose Family History No Family History Records Found Relationship Condition Age at Onset Recorded Date/T jyothi father Cardiac disease Unknown Diabetes mellitus Unknown brother Myocardial infarction Unknown brother Coronary artery disease Unknown sister Coronary artery disease Unknown Advance Directives No Advanced Directives Records Found Advance Directive Response Recorded Date/ Time Living Will Yes December 22, 2016 1 1:35pm Power of Preparer Yes December 22, 2016 11:35pm Advance Directive Response Recorded Date/ Time Living Will Yes July 09 10:59am Power of Preparer Yes July 09, 2022 10:59am Advance Directive Response Recorded Date/ Time Living Will Yes July 09 11:59am Power of Preparer Yes July 09, 2022 11:59am Advance Directive Response Recorded Date/ Time Advance Directives on File Yes November 272022 7:45am Name of Medical Power of Preparer Antoni Snowden-br other December 17, 2022 7:45am Advance Directives Yes December 17 7:45am Living Will Yes December 17, 2022 7 :45am Power of Preparer Yes December 17, 2022 7:45am Advance Directive Response Recorded Date/ Time Advance Directives Yes December 17 7:45am Living Will Yes December 17, 2022 7 :45am Power of Preparer Yes December 17, 2022 7:45am Advance Directive Response Recorded Date/ Time Advance Directives Yes July 05, 2024 10:35am Chief Complaint and Reason for Visit Chief Complaint 1 Y FU EORDER Reason for Visit Disorder of lipoid m etabolism Essential (primary) hypertension Chief Complaint EORDER EORDERS EORDER Chief Complaint LEFT ANKLE room 4 Severe left shoulder/upper arm pain. 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- AND DR SAUL/2 DRS-LABS AND XRAY Reason for Visit Chest discomfort Essential (primary) hypertension Chief Complaint CHEST PAIN URINE Chief Complaint Admit Date RIGHT ARM June 23, 2024 7:54am SORE THROAT July 05, 2024 1 0:18am 2 ORDERING JOSH October 08, 2024 8:0 7am Reason for Visit Admit Date Rupture of right long head biceps tendon June 23, 2024 7:54am Pharyngitis July 05, 2024 1 0:18am Chief Complaint Admit Date SORE THROAT July 05, 2024 1 0:18am 2 ORDERING JOSH October 08, 2024 8:0 7am L 1CM CYST/NODULE October 19, 2024 11: 46am Reason for Visit Admit Date Pharyngitis July 05, 2024 1 0:18am Additional Source Comments INFORMATION SOURCE (unrecogn ized section and content) DATE CREATED AUTHOR 09/20/2021 [facility] DATE CREATED AUTHOR 'S ORGANIZ ATSELVIN 10/27/2024 [facility] Goals (unrecognized section and content) Goals may be documented in a n alternate sectionGoals may be documented in an alternate sectionGoals may be documented in an alternate sectionGoals may be documented in an alternate sectionGoals may be documented in an alternate sectionGoals may be documented in an alternate sectionGoals may be documented in an alternate sectionGoals may be documented in an alternate sectionGoals may be documented in an alternate section Care Teams (unrecognized sec tion and content) Team Status: Active Member Role Status Dates Dr. Luis A Cramer III, MD Family Provider Active Dr. Zack Hinds MD Primary Care Provider Active Team Status: Inactive Member Role Status Dates Dr. Zack Hinds MD Primary Care Provider, Referring P rovider Active Florin Calderón MD Attending Provider Active Team Status: Inactive Member Role Status Dates Dr. Zack Hinds MD Primary Care Provider Active Dr. Brenton Saul MD Attending Provider Active Team Status: Inactive Member Role Status Dates Dr. Zack Hinds MD Primary Care Provide r, Attending Provider, Referring Provider Active Team Status: Inactive Member Role Status Dates Dr. Zack Hinds MD Primary Care Provider, Referring P rovider Active Dr. Brenton Saul MD Attending Provider Active Team Status: Inactive Member Role Status Dates Dr. Zack Hinds MD Primary Care Provide r, Attending Provider, Referring Provider Active Dr. Brenton Saul MD Other Provider Active Team Status: Inactive Member Role Status Dates Dr. Zack Hinds MD Primary Care Provider Active Dr. Brenton Saul MD Attending Provider, Referring Pro vider Active Team Status: Active Member Role Status Dates Dr. Zack Hinds MD Primary Care Provide r, Attending Provider, Referring Provider Active Team Status: Active Member Role Status Dates Dr. Zack Hinds MD Primary Care Provider Active Team Status: Inactive Member Role Status Dates Dr. Zack Hinds MD Primary Care Provider Active Start: June 23, 2024 End: June 23, 2024 Dr. Zack Hinds MD Referring Provider Active St art: June 23, 2024 End: June 23, 2024 Florin Calderón MD Attending Provider Active St art: June 23, 2024 End: June 23, 2024 Team Status: Inactive Member Role Status Dates Dr. Zack Hinds MD Primary Care Provider Active Start: July 05, 2024 End: July 05, 2024 Dr. Zack Hinds MD Referring Provider Active St art: July 05, 2024 End: July 05, 2024 Eyad Knutson SUPERVISOR [employer]YING [employer]ENING, SUPERVISOR [employer]YING [employer] SOFT[employer]ING-C Attending Provider Active S tart: July 05, 2024 End: July 05, 2024 Team Status: Inactive Member Role Status Dates Dr. Zack Hinds MD Primary Care Provider Active Start: October 08, 2024 End: October 08, 2024 Dr. Zack Hinds MD Attending Provider Active St art: October 08, 2024 End: October 08, 2024 Dr. Zack Hinds MD Referring Provider Active St art: October 08, 2024 End: October 08, 2024 Heidy Strickland PA, PA Other Provider Active Start: October 08, 2024 End: October 08, 2024 Team Status: Inactive Member Role Status Dates Dr. Zack Hinds MD Primary Care Provider Active Start: October 19, 2024 End: October 19, 2024 Dr. Zack Hinds MD Attending Provider Active St art: October 19, 2024 End: October 19, 2024 Dr. Zack Hinds MD Referring Provider Active St art: October 19, 2024 End: October 19, 2024 FOR RECORDS PERTAINING TO PATIENTS WHO ARE OR HAVE BEEN ENROLLED IN A CHEMICAL DEPENDENCY/SUBSTANCEABUSE PROGRAM, SOME INFORMATION MAY BE OMITTED. This clinical summary was aggregated from multiple sources. Caution should be exercised in using it in the provision of clinical care. This summary normalizes information from multiple sources, and as a consequence, information in this document may materially change the coding, format and clinical context of patient data. In addition, data may be omitted in some cases. CLINICAL DECISIONS SHOULD BE BASED ON THE PRIMARY CLINICAL RECORDS. [employer] provides no warranty or guarantee of the accuracy or completeness of information in this document.
[2025-01-18 11:00] LABS: AST(SGOT) 25 U/L (<=31); Alanine Aminotransfer ALT/SGPT 24 U/L (<=34); Albumin, Serum 4.3 g/dL (3.4-4.8); Alkaline Phosphatase 69 U/L (35-104); Bilirubin, Direct 0.24 mg/dL (0.00-0.30); Cholesterol 185 mg/dL (<=200); Globulin 2.7 g/dL (2.2-4.2); High Density Lipoprotein 72 mg/dL; Low Density Lipoprotein Calc. 104 mg/dL; Total Bilirubin 0.58 mg/dL (0.00-1.30); Triglycerides 47 mg/dL; Very Low Density Lipoprotein 9 mg/dL (5-40); cholesterol:hdl ratio screen 2.58
== END | disposition home or self-care (01) ==
LOC: LAB 08:21
PROVIDERS: PCP Family Medicine; Referring Provider Physician Assistant Medical; Visit Provider Physician Assistant Medical
DX: E78.5 Hyperlipidemia, unspecified (principal)
CPT/HCPCS: 36415; 80061; 80076

== ENCOUNTER → 2025-04-16 | Outpatient (CLI) | payer MEDICARE, OTHER, SELFPAY ==
[2025-04-16 10:14] LABS: AST(SGOT) 20 U/L (<=31); Alanine Aminotransfer ALT/SGPT 23 U/L (<=34); Albumin, Serum 4.1 g/dL (3.4-4.8); Alkaline Phosphatase 77 U/L (35-104); Anion Gap 10 (5-15); BUN 18 mg/dL (4-19); BUN/Creat Ratio 25.5 RATIO (10-20); Calcium,Total 9.3 mg/dL (7.6-11.0); Carbon Dioxide 26.4 mmol/L (21.0-32.0); Chloride 101 mmol/L (98-108); Globulin 2.4 g/dL (2.2-4.2); Glucose 87 mg/dL (70-99); Potassium 4.4 mmol/L (3.3-5.1)
[2025-04-16 15:34] LABS: Creatinine, Urine (random) 40.20 mg/dL (28.00-217.00); Microalbumin,Random Urine < 12.0 mg/L (<20 mg/L)
== END | disposition home or self-care (01) ==
PROVIDERS: PCP Family Medicine; Referring Provider Family Medicine; Visit Provider Family Medicine
DX: I10 Essential (primary) hypertension (principal); E03.9 Hypothyroidism, unspecified
CPT/HCPCS: 36415; 80053; 82043; 82570; 84439; 84443

== ENCOUNTER → 2025-05-14 | Outpatient (CLI) | payer MEDICARE, OTHER, SELFPAY ==
--- NOTE | 2025-05-14 14:18 | BI_ITS ---
EXAM: SCRN MAMM (CAD)W/PADMINI BILAT DATE: 05/14/2025 CLINICAL HISTORY: F, Age 75 y/o , SCREENING TECHNIQUE: Procedure Code: [id number] Modality: MG Procedure: SCRN MAMM (CAD)W/PADMINI BILAT COMPARISON: Prior exam(s) were compared FINDINGS: TISSUE DENSITY: The breasts are heterogeneously dense, which may obscure small masses. Bilateral Breast Mammographic Findings: No suspicious masses, calcifications or other abnormalities are identified. BI/SCRN MAMM (CAD)W/PADMINI BILAT IMPRESSION: No mammographic evidence of malignancy in either breast. OVERALL FINAL ASSESSMENT BI-RADS 1: NEGATIVE. RECOMMENDATION: Routine annual follow-up in 1 Year Additional Recommendation none A letter with findings and recommendations will be mailed to the patient. Reading Location: [id number]
--- OUTSIDE RECORDS SUMMARY | 2025-05-14 14:36 | XMS RPT_ITS | CCD ---
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 Zack Hinds Primary Care Provider [phone] Zack Hinds Referring Provider Dr. Brenton Saul Attending Provider Dr. Zack Hinds Primary Care Provider Dr. Zack Hinds Referring Provider MD Florin Calderón Attending Provider Dr. Brenton Saul Attending Provider Dr. Zack Hinds Primary Care Provider Dr. Zack Hinds Referring Provider Dr. Brenton Saul Attending Provider Dr. Zack Hinds MD Primary Care Provider Dr. Zack Hinds MD Referring Provider Florin Calderón MD Attending Provider [facility] TECHNICIAN [employer]QUIPMENT-C, Eyad Welch Attending Provider Dr. Zack Hinds MD Attending Provider Heidy Nuno Other Provider Dr. Zack Hinds MD Primary Care Provider Dr. Zack Hinds MD Referring Provider Dr. Zack Hinds MD Primary Care Provider Dr. Zack Hinds MD Referring Provider Heidy Nuno Attending Provider Heidy Nuno Referring Provider Dr. Zack Hinds MD Primary Care Provider Guzman MILLER, Dr. Dixon Referring Provider Florin Calderón MD Attending Provider Dorys MILLER, Dr. Farris Attending Provider Guzman MILLER, Dr. Dixon Primary Care Physician Heidy Nuno Attending Physician Florin Calderón MD Attending Physician Dorys MILLER, Dr. Farris Attending Physician Guzman MILLER, Dr. Dixon Attending Physician Dorys MILLER, Dr. Farris Nurse Practitioner Hinds, Zack Primary Care Unavailable Florin Calderón Attending Unavailable Hinds, Zack Referring Unavailable Hinds, Zack Primary Care Unavailable [facility] TECHNICIAN SU[employer]QUIPMENT, [facility] Attending Unavailable Hinds, Zack Referring Unavailable Hinds, Zack Primary Care Unavailable Florin Calderón Attending Unavailable Hinds, Zack Referring Unavailable Hinds, Zack Primary Care Unavailable Hinds, Zack Attending Unavailable Hinds, Zack Referring Unavailable Hinds, Zack Primary Care Unavailable Jennifer TECHNICIAN [employer], Erika Attending Unavailable Jennifer TECHNICIAN SUBMAR[employer]QUIPMENT, Erika Referring Unavailable Hinds, Zack Primary Care Unavailable Hinds, Zack Attending Unavailable Dorys, [place] [employer] Unavailable Hinds, Zack Referring Unavailable Heidy Nuno Attending Unavail able Heidy Nuno Referring Unavail able Hinds, Zack Primary Care Unavailable Hinds, Zack Primary Care Unavailable Hinds, Zack Attending Unavailable Hinds, Zack Referring Unavailable Heidy Nuno Consulting Unavail able Hinds, Zack Primary Care Unavailable Hinds, Zack Attending Unavailable Hinds, Zack Referring Unavailable Hinds, Zack Primary Care Unavailable Dorys, Brenton Attending Unavailable Hinds, Zack Referring Unavailable Hinds, Zack Primary Care Unavailable Dorys, Brenton Attending Unavailable Allergies Allergy Classification Reported Allergen(s) Allergy Type Date of Onset Reaction(s) Facility (14 sources) Amoxicillin Drug Allergy 12-05-2021 Rash [facility] (1 source) Amoxicillin Drug Allergy 04-23-2025 [facility] Repository Medications Current Medications Medication Drug Class(es) Dates Sig (Normalized) Sig (Original) aspirin 81 mg delayed release oral tablet (14 sources) Platelet Aggregation Inhibitor, Nonsteroidal Anti-inflammatory Drug Start: 05-22-2018 Aspirin (Adult Low Dose Aspirin) 81 mg tablet,delayed release (DR/EC) Active 81 mg PO DAILY May 22, 2018 12:00am Complies with drug therapy calcium carbonate 1500 mg / cholecalciferol 500 unt oral capsule (14 sources) Vitamin D Start: 12-01-2020 Calcium Carbonate-Vitami n D3 (Calcium 600 With Vitamin D3) 600 mg(1,500mg) -500 unit capsule Active 1 NMA PO TWICE A DAY December 01, 2020 12:00am Complies with drug therapy Start: 12-01-2020 take 1 capsule by mo [facility] twice daily Calcium Carbonate-Vitamin D3 (Calcium 600 With Vitamin D3) 600 mg(1,500mg) -500 unit capsule Active 1 CAP PO TWICE A DAY December 01, 2020 12:00am cholecalciferol 0.125 mg oral tablet (20 sources) Vitamin D Start: 04-23-2025 take 1 tablet by mouth once daily Cholecalciferol (Vitamin D3) 125 mcg (5,000 unit) tablet Active 125 ug PO daily April 23, 2025 1:12pm Complies with drug therapy Start: 12-01-2019 End: 12-01-2020 Cholecalciferol (Vitamin D3) 125 mcg (5,000 unit) tablet Discontinued 125 ug PO .M/W/F December 01, 2019 12:00am December 01, 2020 2:05pm Start: 12-01-2019 End: 04-23-2025 take 1 tablet by mouth every week Cholecalciferol (Vitamin D3) 125 mcg (5,000 unit) tablet Discontinued 125 ug PO .COMPLEX December 05, 2021 1:58pm April 23, 2025 1:14pm 125 mcg PO take 1 tab 5x per week; hydroCHLOROthiazide 12.5 mg oral capsule (20 sources) Thiazide Diuretic Start: 12-01-2020 take 1 capsule by mouth once daily Hydrochlorothiazide 12.5 mg capsule Active 12.5 mg PO DAILY December 01, 2020 12:00am Complies with drug therapy Start: 03-05-2019 End: 12-01-2020 take 1 tablet by mouth once daily Hydrochlorothiazide 12.5 mg tablet Discontinued 12.5 mg PO DAILY 3 March 05, 2019 12:00am May 6th, 2021 2:01pm levothyroxine sodium 0.1 mg oral tablet (20 sources) l-Thyroxine Start: 11-30-2022 take 1 tablet by mouth once daily Levothyroxine 100 mcg tablet Active 100 ug PO DAILY November 30, 2022 12:00am Complies with drug therapy Start: 12-01-2019 End: 11-30-2022 Levothyroxine 125 mcg tablet Discontinued 125 ug PO .6xweek December 01, 2020 1:59pm November 30, 2022 2:33pm Start: 05-22-2018 End: 12-01-2019 take 1 tablet by mouth once daily Levothyroxine 112 mcg tablet Discontinued 112 ug PO DAILY 90 90 0 May 22, 2018 12:00am December 01, 2019 2:11pm losartan potassium 100 mg oral tablet (14 sources) Angiotensin 2 Receptor Odalis Start: 03-05-2019 take 1 tablet by mouth once daily Losartan 100 mg tablet Active 100 mg PO DAILY 90 3 March 05, 2019 12:00am Complies with drug therapy Turmeric extract (14 sources) Start: 12-05-2021 take 1 capsule by mouth once daily Turmeric 400 mg capsule Active 400 mg PO DAILY December 05, 2021 12:00am Complies with drug therapy Start: 12-05-2021 take 1 capsule by mo [facility] once daily Turmeric 400 mg capsule Active [...] Start: 05-22-2018 take 1 tablet by tavares th once daily Vitamin B Complex Active 1 TABLET PO DAILY May 21, 2018 11:00pm Start: 05-22-2018 take 1 tablet by mouth once da camryn Vitamin B Complex Active 1 TABLET PO DAILY May 22, 2018 12:00am Vitamin B Complex tablet (7 sources) Start: 05-22-2018 Vitamin B Comp analy tablet Active 1 {tbl} PO DAILY May 22, 2018 12:00am Complies with drug therapy Start: 05-22-2018 Vitamin B Comp analy tablet Active 1 {tbl} PO DAILY May 22, 2018 12:00am Zinc (14 sources) Start: 12-01-2020 take 1 tablet by tavares th once daily Zinc 50 mg tablet Active 50 mg PO DAILY December 01, 2020 12:00am Complies with drug therapy Start: 12-01-2020 take 1 tablet by mouth once da camryn Zinc 50 mg tablet Active 50 mg [...] / HYDROcodone bitartrate 5 mg oral tablet (14 sources) Opioid Agonist Start: 12-22-2016 End: 05-28-2018 Hydrocodone-Acetami nophen 1 TABLET tablet Discontinued 1 - 2 {tbl} PO EVERY 4 HOURS NEEDED as needed for Pain 30 0 December 22, 2016 12:00am May 28, 2018 9:59am Start: 12-22-2016 End: 05-28-2018 take 1 tablet by mouth every four hours as needed Hydrocodone-Acetaminophen Discontinued 1 - 2 TABLET PO EVERY 4 HOURS NEEDED December 22, 2016 12:00am May 28, 2018 9:59am azithromycin 250 mg oral tablet (7 sources) Macrolide Antimicrobial Start: 07-05-2024 End: 04-02-2025 Azithromycin (Zithromax Z-Korey) 250 mg tablet Discontinued 0 PO .COMPLEX 6 0 July 05, 2024 1:00am April 02, 2025 2:34pm For 250 mg dose pack: take 500 mg today (day 1), then 250 mg for 4 days (days 2-5) PO calcium carbonate-vitamin D3 500 mg(1,250 mg)-600 unit [...] Carbonate-Vitamin D3 500 mg(1,250mg) -600 unit tablet,chewable (7 sources) Start: 05-22-2018 End: 12-01-2020 Calcium Carbonate-Vitamin D3 500 mg(1,250mg) -600 unit tablet,chewable Discontinued {tbl} PO 0 May 22, 2018 12:00am December 01, 2020 2:02pm Start: 05-22-2018 End: 12-01-2020 Calcium Carbonate-Vitamin D3 500 mg(1,250mg) -600 unit tablet,chewable Discontinued {tbl} PO May 22, 2018 12:00am December 01, 2020 2:02pm hydroCHLOROthiazide 12.5 mg / losartan potassium 100 mg oral tablet (20 sources) Thiazide Diuretic, Angiotensin 2 Receptor Odalis Start: 05-28-2018 End: 03-05-2019 Losartan-Hydrochlorothiazide 100-12.5 mg tablet Discontinued 1 {tbl} PO DAILY 90 March 04, 2019 10:58am March 05, 2019 4:13pm Start: 05-28-2018 End: 03-05-2019 take 1 tablet by mouth once daily Losartan-Hydrochlorothiazide Discontinue d 1 TABLET PO DAILY March 04, 2019 10:58am March 05, 2019 4:13pm 24 hr metoprolol succinate 25 mg extended release oral tablet (20 sources) beta-Adrenergic Odalis Start: 05-28-2018 End: 11-27-2018 take 1 tablet by mouth once daily Metoprolol Succinate 25 mg tablet extended release 24 hr Discontinued 25 mg PO DAILY May 28, 2018 12:00am November 27, 2018 1:12pm Start: 05-12-2018 End: 05-22-2018 take 1 tablet by mouth twice daily Metoprolol Tartrate 25 mg tablet Discontinued 25 mg PO TWICE A DAY 3 May 12, 2018 12:00am May 22, 2018 2:00pm one tablet by mouth tonight and one tablet in the morning at 1000. [place]-3 Fatty Acids (7 sources) Start: 05-28-2018 End: 11-27-2018 take 500 mg by mouth once daily [place]-3 Fatty Acids Discontinued 500 MG PO DAILY May 27, 2018 11:00pm November 27, 2018 12:12pm Start: 05-28-2018 End: 11-27-2018 take 500 mg by mouth once daily [place]-3 Fatty Acids Discontinued 500 MG PO DAILY May 28, 2018 12:00am November 27, 2018 1:12pm [place]-3 Fatty Acids 500 mg capsule (7 sources) Start: 05-28-2018 End: 11-27-2018 take 1 capsule by mouth once daily [place]-3 Fatty Acids 500 mg capsule Discontinued 500 mg PO DAILY May 28, 2018 12:00am November 27, 2018 1:12pm rosuvastatin calcium 20 mg oral tablet (2 sources) HMG-CoA Reductase Inhibitor Start: 04-23-2025 End: 04-23-2025 take 1 tablet by mouth once daily Rosuvastatin 20 mg tablet Discontinued 20 mg PO daily April 23, 2025 12:00am April 23, 2025 1:45pm simvastatin 40 mg oral tablet (20 sources) HMG-CoA Reductase Inhibitor Start: 12-17-2022 End: 04-23-2025 take 1 tablet by mouth once daily Simvastatin 40 mg tablet Discontinued 0 .ROUTE .COMPLEX 90 3 September 07, 2024 12:24pm April 23, 2025 1:13pm TAKE 1 TABLET BY MOUTH EVERY DAY Start: 12-22-2016 End: 12-17-2022 take 1 tablet by mouth once daily Simvastatin 20 mg tablet Discontinued 20 mg PO DAILY December 01, 2020 1:59pm December 17, 2022 9:37am trandolapril 1 mg oral tablet (14 sources) Angiotensin Converting Enzyme Inhibitor Start: 12-22-2016 End: 05-28-2018 take 1 tablet by mouth once daily Trandolapril 1 MG tablet Discontinued 1 mg PO DAILY December 22, 2016 12:00am May 28, 2018 10:20am Problems Active Problems Problem Classification Problem Date Documented Da te Episodic/Chronic Conditions associated with dizziness or vertigo (14 sources) Lightheadedness; Translations: [Dizziness and giddiness] 11-16-2020 Episodic Disorders of lipid metabolism (12 sources) Dyslipidemia; Translations: [Hyperlipidemia, unspecified] Onset: 01-22-2025 02-03-2024 Chronic Essential hypertension (19 sources) Essential hypertension; Translations: [Essential (primary) hypertension] Onset: 04-25-2025 Chronic Nonspecific chest pain (20 sources) Chest pain; Translations: [Chest pain, unspecified] 11-16-2020 Episodic Osteoarthritis (13 sources) Arthritis of left subtalar joint; Translations: [Primary osteoarthritis, left ankle and foot] 07-10-2022 Chronic Osteoporosis (1 source) Age-related osteoporosis without current pathological fracture; Translations: [Age-related osteoporosis without current pathological fracture] Onset: 06-29-2024 Chronic Other connective tissue disease (12 sources) Calcific tendinitis of left shoulder; Translations: [Calcific tendinitis of left shoulder] 07-19-2022 Episodic Other connective tissue disease (1 source) Calcific tendinitis of left shoulder; Translations: [Calcifying tendinitis of shoulder] 07-19-2022 Episodic Other connective tissue disease (8 sources) Trochanteric bursitis; Translations: [Trochanteric bursitis, right hip] 04-02-2025 Episodic Other connective tissue disease (1 source) Trochanteric bursitis, right hip; Translations: [Trochanteric bursitis, right hip] Onset: 04-02-2025 Episodic Other non-traumatic joint disorders (2 sources) Shoulder pain; Translations: [Pain in left shoulder] 07-19-2022 Episodic Other non-traumatic joint disorders (12 sources) Ankle pain; Translations: [Pain in left ankle and joints of left foot] 07-10-2022 Episodic Other non-traumatic joint disorders (1 source) Pain in left ankle and joints of left foot; Translations: [Pain in joint, ankle and foot] 07-10-2022 Episodic Other non-traumatic joint disorders (11 sources) Pain in left shoulder; Translations: [Pain in joint, shoulder region] 07-19-2022 Episodic Other non-traumatic joint disorders (8 sources) Hip pain; Translations: [Pain in right hip] 04-02-2025 Episodic Other non-traumatic joint disorders (1 source) Pain in right hip; Translations: [Pain in right hip] Onset: 04-02-2025 Episodic Other nutritional; endocrine; and metabolic disorders (14 sources) Disorder of lipid metabolism; Translations: [Disorder of lipoprotein metabolism, unspecified] 11-16-2020 Chronic Other nutritional; endocrine; and metabolic disorders (1 source) Disorder of lipoprotein metabolism, unspecified; Translations: [Unspecified disorder of lipoid metabolism] Chronic Other screening for suspected conditions (not mental disorders or infectious disease) (1 source) Encounter for screening mammogram for malignant neoplasm of breast; Translations: [Encounter for screening mammogram for malignant neoplasm of breast] Onset: 05-04-2025 Episodic Thyroid disorders (15 sources) Shyam thyroiditis; Translations: [Autoimmune thyroiditis] Onset: 10-26-2024 07-11-2020 Chronic Past or Other Problems Problem Classification Problem Date Documented Da te Episodic/Chronic Other non-epithelial cancer of skin (14 sources) Beal's disease of skin of chest; 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] Onset: 07-29-2020 11-16-2020 Episodic Other upper respiratory infections (10 sources) Pharyngitis; Translations: [Acute pharyngitis, unspecified] Onset: 07-05-2024 07-05-2024 Episodic Sprains and strains (9 sources) Rupture of tendon of biceps, long head; Translations: [Strain of muscle, fascia and tendon of long head of biceps, right arm, initial encounter] Onset: 06-23-2024 06-23-2024 Episodic Results Test Name Value Interpretation Reference Range Facility Cardiology Visit Reporton Cardiology Visit Report [facility] [address] [place] [address] OFFICE VISIT Date of Service: 04/23/25 MR#: [id number] Acct: [id number] Name: LUIS RYAN Rep #: [id number] : 1950 Provider: Dr. Brenton Saul MD Age/Sex: 75/F Location: [facility] Status: Signed HPI HPI History of Present Illness Details: This is a 75-year-old female with a strong family history of [...] is to continue with aggressive medical therapy. She does not quite like the rosuvastatin therapy. 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 Required: No Accompanied by: Self Is patient in pain?: No Allergies amoxicillin Adverse Reaction (Verified 04/23/25 13:12) Rash Medications ???Medication ???Instructions ???Recorded ???Confirmed ???Type aspirin 81 mg tablet,delayed 81 mg PO DAILY 05/22/18 04/23/25 H istory release (Adult Low Dose Aspirin) vitamin B complex 1 tab PO DAILY 05/22/18 04/23/25 H istory losartan 100 mg tablet 100 mg PO DAILY #90 tabs 03/05/19 04/23/25 Rx calcium 600 mg (as 1 cap PO BID 12/01/20 04/23/25 His tory carbonate)-vitamin D3 12.5 mcg (500 unit) capsule (Calcium with Vit D3) hydrochlorothiazide 12.5 mg capsule 12.5 mg PO DAILY 12/01/2004/23 History zinc 50 mg tablet 50 mg PO DAILY 12/01/20 04/23/25 H istory turmeric 400 mg capsule 400 mg PO DAILY 12/05/21 04/23/25 History levothyroxine 100 mcg tablet 100 mcg PO DAILY 11/30/22 04/23/25 History cholecalciferol (vitamin D3) 125 125 mcg PO QDAY 04/23/25 04/23/25 History mcg (5,000 unit) tablet simvastatin 40 mg tablet 40 mg PO QDAY #90 tabs 04/23/25 Rx Have you fallen in the past year?: No PFSH Medical History Greater trochanteric bursitis of right hip Right hip pain Rupture of right long head biceps tendon [...] disease CHF Diabetes Brother Myocardial infarction from [place] age 51 Brother CAD (coronary artery disease) stents Sister CAD (coronary artery disease) stents Social History Smoking Status: Former smoker how long ago did patient quit smokin years ago alcohol intake: current alcohol intake frequency: 0-2 drinks per day Alcohol type: beer and wine substance use type: does not use caffeine: Yes (occasional cup of coffee) ROS Const Const: Negative for fatigue or weakness ENT ENT: Negative for dizziness or balance problems Cardio Chest Pain: No Palpitations: No Edema: None Muscle aches with walking: None Resp Respiratory: Negative for SOB with activity, SOB at rest or SOB orthopnea SOB lying down GI GI: Negative nausea, vomiting or heartburn Musc Musc: Negative for muscle weakness or balance problems Neuro Neuro: Negative for dizziness, lightheadedness, near syncope, syncope or weakness Endo Endo: Negative for fatigue Cardiology Exam Const Appearance: cooperative, healthy appearing, no acute distress, well developed and well groomed Nutritional Appearance: average bod (more content not included)... Normal [facility] Anion gap in Serum or Plasma Ordered By: Zack Hinds on 04-16-2025 Anion gap [Moles/Vol] 10 mmol/L - [facility] BUN/creatinine ratioOrdered By: Zack Hinds on 04-16-2025 Urea nitrogen/Creatinine [Mass ratio] 25.5 mg/mg High - [facility] Bilirubin, totalOrdered By: Zack Hinds on 04-16-2025 Bilirubin [Mass/Vol] 0.61 mg/dL 0.00-1.30 [facility] Carbon dioxide, total [Moles /volume] in Central venous bloodOrdered By: Zack Hinds on 04-16-2025 CO2 [Moles/Vol] 26.4 mmol/L 21.0-32.0 [facility] Chloride assayOrdered By: Jorge Hinds on 04-16-2025 Chloride [Moles/Vol] 101 mmol/L 98-108 [facility] Comprehensive Metabolic Prof ilon 04-16-2025 Albumin [Mass/Vol] 4.1 g/dL Normal 3.4-4.8 [facility] Comment on above: Order Comment: Order Date: 10/12/24 Order Info: 0786-1 - CMP Order Info: 3 - TSH Order Info: 7 - T4F Performed By: #### L [id number], L506.0400, L500.4050, L502.0250 #### [facility] [address] [place], [address] Albumin/Globulin [Mass ratio] 1.7 {ratio} Normal 0.9-2.4 [facility] Comment on above: Order Comment: Order Date: 10/12/24 Order Info: 07 - CMP Order Info: 3 - TSH Order Info: 7 - T4F Performed By: #### L [id number], L506.0400, L500.4050, L502.0250 #### [facility] [address] [place], [address] ALK PHOS 77 U/L Normal 35-104 [facility] Comment on above: Order Comment: Order Date: 10/12/24 Order Info: [id number] - CMP Order Info: 3 - TSH Order Info: 7 - T4F Performed By: #### L [id number], L506.0400, L500.4050, L502.0250 #### [facility] [address] [place], [address] ALT [Catalytic activity/Vol] 23 U/L Normal <=34 [facility] Comment on above: Order Comment: Order Date: 10/12/24 Order Info: 0786-1 - CMP Order Info: 3 - TSH Order Info: 3024-7 - T4F Performed By: #### L [id number], L506.0400, L500.4050, L502.0250 #### [facility] [address] [place], [address] AST [Catalytic activity/Vol] 20 U/L Normal <=31 [facility] Comment on above: Order Comment: Order Date: 10/12/24 Order Info: 0786-1 - CMP Order Info: 3 - TSH Order Info: 302-7 - T4F Performed By: #### L [id number], L506.0400, L500.4050, L502.0250 #### [facility] [address] [place], [address] Bilirubin [Mass/Vol] 0.61 mg/dL Normal 0.00-1.30 [facility] Comment on above: Order Comment: Order Date: 10/12/24 Order Info: 0786-1 - CMP Order Info: 3 - TSH Order Info: 3024-7 - T4F Performed By: #### L [id number], L506.0400, L500.4050, L502.0250 #### [facility] [address] [place], [address] BUN/CRE 25.5 RATIO High 10-20 [facility] Comment on above: Order Comment: Order Date: 10/12/24 Order Info: 0786-1 - CMP Order Info: 301-3 - TSH Order Info: 3024-7 - T4F Performed By: #### L [id number], L506.0400, L500.4050, L502.0250 #### [facility] [address] [place], [address] Calcium [Mass/Vol] 9.3 mg/dL Normal 7.6-11.0 [facility] Comment on above: Order Comment: Order Date: 10/12/24 Order Info: 0786-1 - CMP Order Info: 3 - TSH Order Info: 3027 - T4F Performed By: #### L [id number], L506.0400, L500.4050, L502.0250 #### [facility] [address] [place], [address] Chloride [Moles/Vol] 101 mmol/L Normal 98-108 [facility] Comment on above: Order Comment: Order Date: 10/12/24 Order Info: 0786-1 - CMP Order Info: 3 - TSH Order Info: 7 - T4F Performed By: #### L [id number], L506.0400, L500.4050, L502.0250 #### [facility] [address] [place], [address] CO2 [Moles/Vol] 26.4 mmol/L Normal 21.0-32.0 [facility] Comment on above: Order Comment: Order Date: 10/12/24 Order Info: 0786-1 - CMP Order Info: 3 - TSH Order Info: 7 - T4F Performed By: #### L [id number], L506.0400, L500.4050, L502.0250 #### [facility] [address] [place], [address] Creatinine [Mass/Vol] 0.70 mg/dL Normal 0.70-1.20 [facility] Comment on above: Order Comment: Order Date: 10/12/24 Order Info: 0786-1 - CMP Order Info: 3 - TSH Order Info: 3024-7 - T4F Performed By: #### L [id number], L506.0400, L500.4050, L502.0250 #### [facility] [address] [place], [address] GAP 10 Normal 5-15 [facility] Comment on above: Order Comment: Order Date: 10/12/24 Order Info: 0786-1 - CMP Order Info: 6-3 - TSH Order Info: 3024-7 - T4F Performed By: #### L [id number], L506.0400, L500.4050, L502.0250 #### [facility] [address] [place], [address] GFR/1.73 sq M.predicted among non-blacks MDRD (S/P/Bld) [Vol rate/Area] 91 mL/min/{1.73_m2} Normal >60 [facility] Comment on above: Order Comment: Order Date: 10/12/24 Order Info: 07-1 - CMP Order Info: 3016-3 - TSH Order Info: 3024-7 - T4F Result Comment: mL/m in/1.73m2 CKD-EPI Creatinine Equation (2020) Performed By: #### L [id number], L506.0400, L500.4050, L502.0250 #### [facility] [address] [place], [address] Globulin (S) [Mass/Vol] 2.4 g/dL Normal 2.2-4.2 [facility] Comment on above: Order Comment: Order Date: 10/12/24 Order Info: 0786-1 - CMP Order Info: 3016-3 - TSH Order Info: 3024-7 - T4F Performed By: #### L [id number], L506.0400, L500.4050, L502.0250 #### [facility] [address] [place], [address] Glucose [Mass/Vol] 87 mg/dL Normal 70-99 [facility] Comment on above: Order Comment: Order Date: 10/12/24 Order Info: 0786-1 - CMP Order Info: 3016-3 - TSH Order Info: 3024-7 - T4F Performed By: #### L [id number], L506.0400, L500.4050, L502.0250 #### [facility] [facility] [address] [place], [address] Potassium [Moles/Vol] 4.4 mmol/L Normal 3.3-5.1 [facility] Comment on above: Order Comment: Order Date: 10/12/24 Order Info: 0786-1 - CMP Order Info: 3016-3 - TSH Order Info: 302-7 - T4F Performed By: #### L 501.9520, L506.0400, L500.4050, L502.0250 #### [facility] [address] [place], [address] Sodium [Moles/Vol] 137 mmol/L Normal 133-145 [facility] Comment on above: Order Comment: Order Date: 10/12/24 Order Info: 0786-1 - CMP Order Info: 3 - TSH Order Info: 3027 - T4F Performed By: #### L 501.9520, L506.0400, L500.4050, L502.0250 #### [facility] [address] [place], [address] T PROT 6.6 g/dL Normal 5.9-8.4 [facility] Comment on above: Order Comment: Order Date: 10/12/24 Order Info: 0786-1 - CMP Order Info: 301-3 - TSH Order Info: 3024-7 - T4F Performed By: #### L 501.9520, L506.0400, L500.4050, L502.0250 #### [facility] [address] [place], [address] Urea nitrogen [Mass/Vol] 18 mg/dL Normal 4-19 [facility] Comment on above: Order Comment: Order Date: 10/12/24 Order Info: 0786-1 - CMP Order Info: 3016-3 - TSH Order Info: 3024-7 - T4F Performed By: #### L 501.9520, L506.0400, L500.4050, L502.0250 #### [facility] [address] [place], [address] Glomerular filtration rate ( GFR) estimation/1.73 sq m using serum, plasma, or whole bOrdered By: Zack Hinds on 04-16-2025 GFR/1.73 sq M.predicted among non-blacks MDRD (S/P/Bld) [Vol rate/Area] 91 mL/min/{1.73_m2} >60 [facility] Comment on above: mL/min/1.73m2 CKD-EP I Creatinine Equation (2020) Laboratory - Chemistry and C hemistry - challengeOrdered By: Zack Hinds on 04-16-2025 AST [Catalytic activity/Vol] 20 U/L <32 [facility] Microalb:Creat Ratio,Random URon 04-16-2025 Creatinine [Mass/Vol] 40.20 mg/dL Normal 28.00-217.0 0 [facility] Comment on above: Order Comment: Order Date: 10/12/24 Order Info: 0779-1 - MIACRE Result Comment: UTO Performed By: #### L 501.9520, L506.0400, L500.4050, L502.0250 #### [facility] [address] [place], [address] MALB:CREAT UNABLE TO CALCULATE Normal <30 mg/g CRE [facility] Comment on above: Order Comment: Order Date: 10/12/24 Order Info: 0779-1 - MIACRE Result Comment: UTO Performed By: #### L 501.9520, L506.0400, L500.4050, L502.0250 #### [facility] [address] [place], [address] MICROALBUMIN,UR < 12.0 Normal <20 mg/L [facility] Comment on above: Order Comment: Order Date: 10/12/24 Order Info: 0779-1 - MIACRE Result Comment: UTO Performed By: #### L 501.9520, L506.0400, L500.4050, L502.0250 #### [facility] [place], [address] Microalbumin/creat ratio urO rdered By: Zack Hinds on 04-16-2025 Urine microalbumin/creatin ine ratio measurement UNABLE TO CALCULATE mg/g CRE <30 [facility] Potassium measurement (mass/ volume)Ordered By: Zack Hinds on 04-16-2025 Potassium (Unsp spec) [Mass/Vol] 4.4 mmol/L 3.3-5.1 [facility] Random urine creatinine nancy urement (mass/volume)Ordered By: Zack Hinds on 04-16-2025 Creatinine Unsp time (U) [Mass/Vol] 40.20 mg/dL 28.00-217.0 0 [facility] Serum creatinine measurement (mass/volume)Ordered By: Zack Hinds on 04-16-2025 Creatinine [Mass/Vol] 0.70 mg/dL 0.70-1.20 [facility] Serum globulin measurementOr dered By: Zack Hinds on 04-16-2025 Globulin (S) [Mass/Vol] 2.4 g/dL 2.2-4.2 [facility] Serum glucose measurement (m ass/volume)Ordered By: Zack Hinds on 04-16-2025 Glucose [Mass/Vol] 87 mg/dL 70-99 [facility] Serum or plasma alanine garcia otransferase (ALT) measurementOrdered By: Zack Hinds on 04-16-2025 ALT [Catalytic activity/Vol] 23 U/L <35 [facility] Serum or plasma albumin nancy urement (mass/volume)Ordered By: Zack Hinds on 04-16-2025 Albumin [Mass/Vol] 4.1 g/dL 3.4-4.8 [facility] Serum or plasma albumin/glob ulin mass ratioOrdered By: Zack Hinds on 04-16-2025 Albumin/Globulin [Mass ratio] 1.7 {ratio} 0.9-2.4 [facility] Serum or plasma alkaline lamberto sphatase measurementOrdered By: Zack Hinds on 04-16-2025 ALP [Catalytic activity/Vol] 77 U/L 35-104 [facility] Serum or plasma calcium nancy urement (mass/volume)Ordered By: Zack Hinds on 04-16-2025 Calcium [Mass/Vol] 9.3 mg/dL 7.6-11.0 [facility] Serum or plasma urea nitroge n measurement (mass/volume)Ordered By: Zack Hinds on 04-16-2025 Urea nitrogen [Mass/Vol] 18 mg/dL 4-19 [facility] Sodium levelOrdered By: Zack Hinds on 04-16-2025 Sodium [Moles/Vol] 137 mmol/L 133-145 [facility] T4 Free Directon 04-16-2025 T4 FREE DIRECT 1.30 ng/dL Normal 0.76-1.46 [facility] Comment on above: Order Comment: Order Date: 10/12/24Order Info: 0786-1 - CMPOrder Info: 3016-3 - TSHOrder Info: 3024-01 - T4F Performed By: #### L 501.9520, L506.0400, L500.4050, L502.0250 ####[facility] [address] [place], [place], [id number] T4 freeOrdered By: Zack welch on 04-16-2025 Free T4 [Mass/Vol] 1.30 ng/dL 0.76-1.46 [facility] TSH DL <= 0.005 mIU/L QnOrde red By: Zack Hinds on 04-16-2025 TSH Qn 0.904 uIU/mL 0.300-4.200 [facility] Thyroid Stim Hormone (TSH)on 04-16-2025 TSH 0.904 uIU/mL Normal 0.300-4.200 [facility] Comment on above: Order Comment: Order Date: 10/12/24 Order Info: 0786-1 - CMP Order Info: 3016-3 - TSH Order Info: 7 - T4F Performed By: #### L 501.9520, L506.0400, L500.4050, L502.0250 #### [facility] [address] [place], [place], [address] Total proteinOrdered By: Iliana Hinds on 04-16-2025 Protein [Mass/Vol] 6.6 g/dL 5.9-8.4 [facility] Urine albumin measurement [facility] detection limit of 20 mg/L or less (mass/volume)Ordered By: Zack Hinds on 04-16-2025 Albumin DL <= 20 mg/L (U) [Mass/Vol] < 12.0 mg/L <20 mg/L [facility] HIP, UNI W/ Pelvis 2-3 Views on 04-02-2025 HIP, UNI W/ Pelvis 2-3 Views [facility] Imaging Services [address] [place], [place] [address] HIP, UNI W/ Pelvis 2-3 Views MR#: [id number] Acct: [id number] Name: LUIS RYAN Rep #: [id number] : 1950 F 74 From: David Fuentes MD PCP: Dr. Zack Hinds MD Status: DEP AMB Study: HIP, UNI W/ Pelvis 2-3 Views Date of Exam: 12/20 Exam# [id number] Ordering Dr: Florin Calderón MD PROCEDURE: HIP, UNI W/ PELVIS 2-3 VIEWS 04/02/2025 REASON FOR EXAM: PAIN AT THE GT TECHNIQUE: Procedure Code: RAD Modality: DX Procedure: HIP, UNI W/ PELVIS 2-3 VIEWS Laterality: FINDINGS: No evidence of acute fracture or dislocation. The hip joint spaces are maintained. Degenerative changes of the partially visualized spine. RAD/HIP, UNI W/ Pelvis 2-3 Views IMPRESSION: No acute abnormality. Reading Location: [address] CC: Dr. Zack Hinds MD; Dr. Florin Calderón MD Technology Lab Teacher: Signed Normal [facility] Orthopedic Visit Reporton Orthopedic Visit Report [facility] [address] [place] [address] [address] [place] [address] OFFICE VISIT Date of Service: 04/02/25 MR#: [id number] Acct: [id number] Name: LUIS RYAN Rep #: [id number] : 1950 Provider: Dr. Florin sultana MD Age/Sex: 74/F Location[place] [facility] Status: Signed with Addenda ADDENDUM by Hannah Liu on 04/02/25 at 1512 Office Procedure Documentation entered by Hannah Liu 04/02/25 15:12: Ortho Injections Injections Yes Greater Trochanteric Bursa Injection Right Is this a patient provided medication?: No Details: Obtained consent for injection. Under sterile conditions, injected the patients right greater trochanteric bursa with 2cc Kenalog 4cc Bupivacaine. The patient tolerated the injection well without any noted complication. Patient should call our office if redness develops, pain worsens or if they have any concerns. Office Meds Kenalog 40 mg/mL suspension for injection Performing Provider: Florin Calderón MD Performing Location: [facility] Administered by: Florin Calderón MD on 04/02/25 15:10 Dose Route Admin Location Dispensed Lot Number Expiration Date NDC Man ufacturer 80 mg intra-articular right greater troch bursa 2 mL [id number] 07/29/26 [id number] [facility] Date cc: * Signed Intake Vital Signs 07/05/24 11:08 04/02/25 14:30 Height 5 ft 2 in 5 ft 2 in Weight: 153 lb BMI 28.0 Intake Visit Reasons: RIGHT THIGH Chief Complaint: Right thigh pain Accompanied by: Self Is patient in pain?: Yes Pain scale (1-10): 5 Allergies amoxicillin Adverse Reaction (Verified 04/02/25 14:33) Rash Medications ???Medication ???Instructions ???Recorded ???Confirmed ???Type aspirin 81 mg tablet,delayed 81 mg PO DAILY 05/22/18 04/02/25 H istory release (Adult Low Dose Aspirin) vitamin B complex 1 tab PO DAILY 05/22/18 04/02/25 H istory losartan 100 mg tablet 100 mg PO DAILY #90 tabs 03/05/19 04/02/25 Rx calcium 600 mg (as 1 cap PO BID 12/01/20 04/02/25 His tory carbonate)-vitamin D3 12.5 mcg (500 unit) capsule (Calcium with Vit D3) hydrochlorothiazide 12.5 mg capsule 12.5 mg PO DAILY 12/01/2004/02 History zinc 50 mg tablet 50 mg PO DAILY 12/01/20 04/02/25 H istory cholecalciferol (vitamin D3) 125 125 mcg PO .COMPLEX 12/05/2104/02 History mcg (5,000 unit) tablet turmeric 400 mg capsule 400 mg PO DAILY 12/05/21 04/02/25 History levothyroxine 100 mcg tablet 100 mcg PO DAILY 11/30/22 04/02/25 History simvastatin 40 mg tablet See Rx Instructions .Route 5 04/02/25 Rx .COMPLEX #90 tabs Have you fallen in the past year?: No PFSH Medical History (Updated 04/02/25 @ 14:41 by Florin Calderón MD) Greater trochanteric bursitis of right hip Right hip pain Rupture of right long head biceps tendon [...] disease CHF Diabetes Brother Myocardial infarction from [place] age 51 Brother CAD (coronary artery disease) stents Sister CAD (coronary artery disease) stents Social History Smoking Status: Former smoker how long ago did patient quit smokin years ago alcohol intake: current alcohol intake frequency: 0-2 drinks per day Alcohol type: beer and wine substance use type: does not use caffeine: Yes (occasional cup of coffee) HPI RIGHT THIGH Details: This documentation accurately reflects the service provided and the decisions made by me, Dr. Florin Calderón MD 04/02/25 0835. Part of today???s visit was documented by [ ], acting as scribe. LUIS RYAN is a 74 year old F here today for R hip thigh pain, 3 weeks. This has been going on for about a month. It is located on the lateral side of the hip somewhat going down aspect of the thigh worse at night worse with activities was doing a lot of abductor muscle strengthening and (more content not included)... Normal [facility] Bilirubin directOrdered By: Heidy Strickland on 01-18-2025 Bilirubin.direct [Mass/Vol] 0.24 mg/dL Normal 0.00-0.30 [facility] Comment on above: Performed By: #### L 500.3400, L500.4100 ####[facility] [address] [place], [place], [id number] Bilirubin, totalOrdered By: Heidy Strickland on 01-18-2025 Bilirubin [Mass/Vol] 0.58 mg/dL Normal 0.00-1.30 [facility] Comment on above: Performed By: #### L 500.3400, L500.4100 ####[facility] [address] [place], [place], [phone] Calculated very low density lipoprotein (VLDL) cholesterol measurementOrdered By: Heidy Strickland on 01-18-2025 Calculated very low density lipoprotein (VLDL) cholesterol measurement 9 mg/dL 5-40 [facility] LDL calc ser/plasOrdered By: Heidy Strickland on 01-18-2025 Cholesterol in LDL [Mass/Vol] 104 mg/dL Normal [facility] Comment on above: Qbmrdyywrw=342-171 m g/dL & Higher Ryoh=419 mg/dL or greater Result Comment: Bord pqwotz=364-421 mg/dL Higher Xmfv=881 mg/dL or greater Performed By: #### L 500.3400, L500.4100 ####[facility] [address] [place], [place], [address] Lipid Profileon 01-18-2025 CHOL:HDL 2.58 Normal [facility] Comment on above: Performed By: #### L 500.3400, L500.4100 ####[facility] [address] [place], [address] Cholesterol in VLDL [Mass/Vol] 9 mg/dL Normal 5-40 [facility] Comment on above: Performed By: #### L 500.3400, L500.4100 ####[facility] [address] [place], [address] Liver Profileon 01-18-2025 ALK PHOS 69 U/L Normal 35-104 [facility] Comment on above: Performed By: #### L 500.3400, L500.4100 ####[facility] [address] [place], [address] T PROT 7.0 g/dL Normal 5.9-8.4 [facility] Comment on above: Performed By: #### L 500.3400, L500.4100 ####[facility] [address] [place], [address] Liver ProfileOrdered By: Romeo Strickland on 01-18-2025 AST [Catalytic activity/Vol] 25 U/L Normal <=31 [facility] Comment on above: Performed By: #### L 500.3400, L500.4100 ####[facility] [address] [place], [address] Screening total cholesterol/ high density lipoprotein (HDL) cholesterol ratioOrdered By: Heidy Strickland on 01-18-2025 Cholesterol.total/Ch olesterol in HDL [Mass ratio] 2.58 {ratio} [facility] Serum globulin measurementOr dered By: Heidy Strickland on 01-18-2025 Globulin (S) [Mass/Vol] 2.7 g/dL Normal 2.2-4.2 [facility] Comment on above: Performed By: #### L 500.3400, L500.4100 ####[facility] [facility] [address] [place], [place], [id number] Serum or plasma alanine garcia otransferase (ALT) measurementOrdered By: Heidy Strickland on 01-18-2025 ALT [Catalytic activity/Vol] 24 U/L Normal <=34 [facility] Comment on above: Performed By: #### L 500.3400, L500.4100 ####[facility] [address] [place], [address] Serum or plasma albumin nancy urement (mass/volume)Ordered By: Heidy Strickland on 01-18-2025 Albumin [Mass/Vol] 4.3 g/dL Normal 3.4-4.8 [facility] Comment on above: Performed By: #### L 500.3400, L500.4100 ####[facility] [address] [place], [place], [id number] Serum or plasma alkaline lamberto sphatase measurementOrdered By: Heidy Strickland on 01-18-2025 ALP [Catalytic activity/Vol] 69 U/L 35-104 [facility] Serum or plasma cholesterol in HDL measurement (mass/volume)Ordered By: Heidy Strickland on 01-18-2025 Cholesterol in HDL [Mass/Vol] 72 mg/dL Normal [facility] Comment on above: National Cholesterol Education Program (NCEP) guidelines:<40 mg/dL: Low HDL-cholesterol (major risk factor for CHD)>= 60 mg/dL: High HDL-cholesterol (negative risk factor for CHD)HDL-cholesterol is affected by a number of factors, e.g. smoking, exercise, hormones, sex and age. Result Comment: Yanet onal Cholesterol Education Program (NCEP) guidelines: <40 mg/dL: Low HDL-cholesterol (major risk factor for CHD) >= 60 mg/dL: High HDL-cholesterol (negative risk factor for CHD) HDL-cholesterol is affected by a number of factors, e.g. smoking, exercise, hormones, sex and age. Performed By: #### L 500.3400, L500.4100 ####[facility] [address] [place], [place], [address] Serum or plasma cholesterol measurement (mass/volume)Ordered By: Heidy Strickland on 01-18-2025 Cholesterol [Mass/Vol] 185 mg/dL Normal <=200 [facility] Comment on above: Cholesterol level, D esirable <200 mg/dLBorderline high cholesterol 200-239 mg/dLHigh cholesterol >=240 mg/dLRecommendations of the NCEP Adult Treatment Panel for the following risk-cutoff thresholds for the [place] population. Result Comment: Chol esterol level, Desirable <200 mg/dL Borderline high cholesterol 200-239 mg/dL High cholesterol >=240 mg/dL Recommendations of the NCEP Adult Treatment Panel for the following risk-cutoff thresholds for the [place] population. Performed By: #### L 500.3400, L500.4100 ####[facility] [address] [place], [place], [id number] Total proteinOrdered By: Romeo Strickland on 01-18-2025 Protein [Mass/Vol] 7.0 g/dL 5.9-8.4 [facility] Triglycerides measurementOrd ered By: Heidy Strickland on 01-18-2025 Triglyceride [Mass/Vol] 47 mg/dL Normal [facility] Comment on above: The drugs N-Acetylcy steine and Metamizole may falsely depress this assay. Normal range: <150 mg/dLBorderline High: 150-199 mg/dLHigh: 200-499 mg/dLVery High: >500 mg/dL Result Comment: The drugs N-Acetylcysteine and Metamizole may falsely depress this assay. Normal range: <150 mg/dL Borderline High: 150-199 mg/dL High: 200-499 mg/dL Very High: >500 mg/dL Performed By: #### L 500.3400, L500.4100 ####[facility] [address] [place], [place], [address] Thyroidon 10-19-2024 Thyroid [facility] Imaging Services [address] [place], [place] [address] Thyroid MR#: [id number] Acct: [id number] Name: LUIS RYAN Rep #: [id number] : 1950 F 74 From: Bisi Buenrostro nd, MD PCP: Dr. Zack Hinds MD Status: REG CLI Study: Thyroid Date of Exam: 10/19/24 Exam# [id number] Ordering Dr: Zack Hinds MD PROCEDURE: THYROID [...] Further follow-up imaging not indicated. Reading [facility] CC: Dr. 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 Normal [facility] Anion gap in Serum or Plasma Ordered By: Zack Hinds on 10-08-2024 Anion gap [Moles/Vol] 12 mmol/L - [facility] BUN/creatinine ratioOrdered By: Zack Hinds on 10-08-2024 Urea nitrogen/Creatinine [Mass ratio] 19.2 mg/mg - [facility] Basic Metabolic Profile (BMP )on 10-08-2024 BUN/CRE 19.2 RATIO Normal - [facility] Comment on above: Order Comment: Order Date: 10/06/24 Order Info: 0667-1 - BMP Performed By: #### L 500.2500 #### [facility] [address] [place], [address] Calcium [Mass/Vol] 9.5 mg/dL Normal 7.6-11.0 [facility] Comment on above: Order Comment: Order Date: 10/06/24 Order Info: 0667- - BMP Performed By: #### L 500.2500 #### [facility] [address] [place], [address] Chloride [Moles/Vol] 101 mmol/L Normal 98-108 [facility] Comment on above: Order Comment: Order Date: 10/06/24 Order Info: 06 - BMP Performed By: #### L 500.2500 #### [facility] [address] [place], [address] CO2 [Moles/Vol] 25.9 mmol/L Normal 21.0-32.0 [facility] Comment on above: Order Comment: Order Date: 10/06/24 Order Info: 06 - BMP Performed By: #### L 500.2500 #### [facility] [address] [place], [address] Creatinine [Mass/Vol] 0.67 mg/dL Low 0.70-1.20 [facility] Comment on above: Order Comment: Order Date: 10/06/24 Order Info: 06- - BMP Performed By: #### L 500.2500 #### [facility] [address] [place], [address] GAP 12 Normal 5-15 [facility] Comment on above: Order Comment: Order Date: 10/06/24 Order Info: 0667- - BMP Performed By: #### L 500.2500 #### [facility] [address] [place], [address] GFR/1.73 sq M.predicted among non-blacks MDRD (S/P/Bld) [Vol rate/Area] 93 mL/min/{1.73_m2} Normal >60 [facility] Comment on above: Order Comment: Order Date: 10/06/24 Order Info: 0667-1 - BMP Result Comment: mL/m in/1.73m2 CKD-EPI Creatinine Equation (2020) Performed By: #### L 500.2500 #### [facility] [address] [place], [address] Glucose [Mass/Vol] 84 mg/dL Normal 70-99 [facility] Comment on above: Order Comment: Order Date: 10/06/24 Order Info: 0667- - BMP Performed By: #### L 500.2500 #### [facility] [address] [place], [address] Potassium [Moles/Vol] 3.9 mmol/L Normal 3.3-5.1 [facility] Comment on above: Order Comment: Order Date: 10/06/24 Order Info: 0667- - BMP Performed By: #### L 500.2500 #### [facility] [address] [place], [address] Sodium [Moles/Vol] 139 mmol/L Normal 133-145 [facility] Comment on above: Order Comment: Order Date: 10/06/24 Order Info: 0667- - BMP Performed By: #### L 500.2500 #### [facility] [address] [place], [address] Urea nitrogen [Mass/Vol] 13 mg/dL Normal 4-19 [facility] Comment on above: Order Comment: Order Date: 10/06/24 Order Info: 0667-1 - BMP Performed By: #### L 500.2500 #### [facility] [address] [place], [address] Bilirubin directOrdered By: Heidy Strickland on 10-08-2024 Bilirubin.direct [Mass/Vol] 0.24 mg/dL 0.00-0.30 [facility] Bilirubin, totalOrdered By: Heidy Strickland on 10-08-2024 Bilirubin [Mass/Vol] 0.49 mg/dL 0.00-1.30 [facility] Calculated very low density lipoprotein (VLDL) cholesterol measurementOrdered By: Heidy Strickland on 10-08-2024 Calculated very low density lipoprotein (VLDL) cholesterol measurement 13 mg/dL 5-40 [facility] VLDL Cholesterol 13 mg/dL 5-40 [facility] Carbon dioxide, total [Moles /volume] in Central venous bloodOrdered By: Zack Hinds on 10-08-2024 CO2 [Moles/Vol] 25.9 mmol/L 21.0-32.0 [facility] Chloride assayOrdered By: Jorge Hinds on 10-08-2024 Chloride [Moles/Vol] 101 mmol/L 98-108 [facility] GFR/1.73 sq M.predicted rosa g non-blacks MDRD (S/P/Bld) [Vol rate/Area]Ordered By: Zack Hinds on 10-08-2024 Estimated GFR (MDRD) Non-Af Amer 93 >60 [facility] Comment on above: mL/min/1.73m2 CKD-EP I Creatinine Equation (2020) Glomerular filtration rate ( GFR) estimation/1.73 sq m using serum, plasma, or whole bOrdered By: Zack Hinds on 10-08-2024 GFR/1.73 sq M.predicted among non-blacks MDRD (S/P/Bld) [Vol rate/Area] 93 mL/min/{1.73_m2} >60 [facility] Comment on above: mL/min/1.73m2 CKD-EP I Creatinine Equation (2020) LDL calc ser/plasOrdered By: Heidy Strickland on 10-08-2024 Cholesterol in LDL [Mass/Vol] 93 mg/dL [facility] Comment on above: Ojvxcsefkt=664-738 m g/dL & Higher Ldxu=949 mg/dL or greater LDL Cholesterol, Calculated 93 mg/dL [facility] Comment on above: Jegzgafqrq=364-844 m g/dL & Higher Chrl=063 mg/dL or greater Laboratory - Chemistry and C hemistry - challengeOrdered By: Heidy Strickland on 10-08-2024 AST [Catalytic activity/Vol] 22 U/L <32 [facility] Lipid Profileon 10-08-2024 CHOL:HDL 2.47 Normal [facility] Comment on above: Performed By: #### L 500.4100, L500.3400 ####[facility] [address] [place], [address] Cholesterol [Mass/Vol] 178 mg/dL Normal <=200 [facility] Comment on above: Result Comment: Chol esterol level, Desirable <200 mg/dL Borderline high cholesterol 200-239 mg/dL High cholesterol >=240 mg/dL Recommendations of the NCEP Adult Treatment Panel for the following risk-cutoff thresholds for the [place] population. Performed By: #### L 500.4100, L500.3400 ####[facility] [address] [place], [address] Cholesterol in HDL [Mass/Vol] 72 mg/dL Normal [facility] Comment on above: Result Comment: Yanet onal Cholesterol Education Program (NCEP) guidelines: <40 mg/dL: Low HDL-cholesterol (major risk factor for CHD) >= 60 mg/dL: High HDL-cholesterol (negative risk factor for CHD) HDL-cholesterol is affected by a number of factors, e.g. smoking, exercise, hormones, sex and age. Performed By: #### L 500.4100, L500.3400 ####[facility] [address] [place], [address] Cholesterol in LDL [Mass/Vol] 93 mg/dL Normal [facility] Comment on above: Result Comment: Bord htizer=868-152 mg/dL Higher Wgvm=405 mg/dL or greater Performed By: #### L 500.4100, L500.3400 ####[facility] [address] [place], [address] Cholesterol in VLDL [Mass/Vol] 13 mg/dL Normal 5-40 [facility] Comment on above: Performed By: #### L 500.4100, L500.3400 ####[facility] [address] [place], [address] Triglyceride [Mass/Vol] 64 mg/dL Normal [facility] Comment on above: Result Comment: The drugs N-Acetylcysteine and Metamizole may falsely depress this assay. Normal range: <150 mg/dL Borderline High: 150-199 mg/dL High: 200-499 mg/dL Very High: >500 mg/dL Performed By: #### L 500.4100, L500.3400 ####[facility] [address] [place], [address] Liver Profileon 10-08-2024 Albumin [Mass/Vol] 4.2 g/dL Normal 3.4-4.8 [facility] Comment on above: Performed By: #### L 500.4100, L500.3400 ####[facility] [address] [place], [address] ALK PHOS 68 U/L Normal 35-104 [facility] Comment on above: Performed By: #### L 500.4100, L500.3400 ####[facility] [address] [place], [address] ALT [Catalytic activity/Vol] 16 U/L Normal <=34 [facility] Comment on above: Performed By: #### L 500.4100, L500.3400 ####[facility] [address] [place], [address] AST [Catalytic activity/Vol] 22 U/L Normal <=31 [facility] Comment on above: Performed By: #### L 500.4100, L500.3400 ####[facility] [address] [place], [address] Bilirubin [Mass/Vol] 0.49 mg/dL Normal 0.00-1.30 [facility] Comment on above: Performed By: #### L 500.4100, L500.3400 ####[facility] [address] [place], [address] Bilirubin.direct [Mass/Vol] 0.24 mg/dL Normal 0.00-0.30 [facility] Comment on above: Performed By: #### L 500.4100, L500.3400 ####[facility] [address] [place], [address] Globulin (S) [Mass/Vol] 2.6 g/dL Normal 2.2-4.2 [facility] Comment on above: Performed By: #### L 500.4100, L500.3400 ####[facility] [address] [place], [address] T PROT 6.8 g/dL Normal 5.9-8.4 [facility] Comment on above: Performed By: #### L 500.4100, L500.3400 ####[facility] [address] [place], [address] Potassium (Unsp spec) [Mass/ Vol]Ordered By: Zack Hinds on 10-08-2024 Potassium [Moles/Vol] 3.9 mmol/L 3.3-5.1 [facility] Potassium measurement (mass/ volume)Ordered By: Zack Hinds on 10-08-2024 Potassium (Unsp spec) [Mass/Vol] 3.9 mmol/L 3.3-5.1 [facility] Screening total cholesterol/ high density lipoprotein (HDL) cholesterol ratioOrdered By: Heidy Strickland on 10-08-2024 Cholesterol.total/Ch olesterol in HDL [Mass ratio] 2.47 {ratio} [facility] Serum creatinine measurement (mass/volume)Ordered By: Zack Hinds on 10-08-2024 Creatinine [Mass/Vol] 0.67 mg/dL Low 0.70-1.20 [facility] Serum globulin measurementOr dered By: Heidy Strickland on 10-08-2024 Globulin (S) [Mass/Vol] 2.6 g/dL 2.2-4.2 [facility] Serum glucose measurement (m ass/volume)Ordered By: Zack Hinds on 03-13-2025 Glucose [Mass/Vol] 84 mg/dL 70-99 [facility] Serum or plasma alanine garcia otransferase (ALT) measurementOrdered By: Heidy Strickland on 10-08-2024 ALT [Catalytic activity/Vol] 16 U/L <35 [facility] Serum or plasma albumin nancy urement (mass/volume)Ordered By: Heidy Strickland on 10-08-2024 Albumin [Mass/Vol] 4.2 g/dL 3.4-4.8 [facility] Serum or plasma alkaline lamberto sphatase measurementOrdered By: Heidy Strickland on 10-08-2024 ALP [Catalytic activity/Vol] 68 U/L 35-104 [facility] Serum or plasma calcium nancy urement (mass/volume)Ordered By: Zack Hinds on 10-08-2024 Calcium [Mass/Vol] 9.5 mg/dL 7.6-11.0 [facility] Serum or plasma cholesterol in HDL measurement (mass/volume)Ordered By: Heidy Strickland on 10-08-2024 Cholesterol in HDL [Mass/Vol] 72 mg/dL >40 [facility] Comment on above: National Cholesterol Education Program (NCEP) guidelines:<40 mg/dL: Low HDL-cholesterol (major risk factor for CHD)>= 60 mg/dL: High HDL-cholesterol (negative risk factor for CHD)HDL-cholesterol is affected by a number of factors, e.g. smoking, exercise, hormones, sex and age. Serum or plasma cholesterol measurement (mass/volume)Ordered By: Heidy Strickland on 10-08-2024 Cholesterol [Mass/Vol] 178 mg/dL <201 [facility] Comment on above: Cholesterol level, D esirable <200 mg/dLBorderline high cholesterol 200-239 mg/dLHigh cholesterol >=240 mg/dLRecommendations of the NCEP Adult Treatment Panel for the following risk-cutoff thresholds for the [place] population. Serum or plasma urea nitroge n measurement (mass/volume)Ordered By: Zack Hinds on 10-08-2024 Urea nitrogen [Mass/Vol] 13 mg/dL 4-19 [facility] Sodium levelOrdered By: Zack Hinds on 10-08-2024 Sodium [Moles/Vol] 139 mmol/L 133-145 [facility] Total proteinOrdered By: Romeo lena Marco A on 10-08-2024 Protein [Mass/Vol] 6.8 g/dL 5.9-8.4 [facility] Triglycerides measurementOrd ered By: Heidy Marco A on 10-08-2024 Triglyceride [Mass/Vol] 64 mg/dL <199 [facility] Comment on above: The drugs N-Acetylcy steine and Metamizole may falsely depress this assay. Normal range: <150 mg/dLBorderline High: 150-199 mg/dLHigh: 200-499 mg/dLVery High: >500 mg/dL S. pyogenes Ag IA.rapid Ql ( Throat)on 07-05-2024 S. pyogenes Ag IA Ql (Unsp spec) Negative [facility] Urgent Care Visit Reporton 1 09-05-2023 Urgent Care Visit Report [facility] [address], [address] [place] [address] OFFICE VISIT Date of Service: 07/05/24 MR#: [id number] Acct: [id number] Name: LUIS RYAN Rep #: [id number] : 1950 Provider: FREDA daley Age/Sex: 74/F Location[place] [facility] Status: Signed Intake Vital Signs 06/23/24 08:02 [...] disease CHF Diabetes Brother Myocardial infarction from [place] age 51 Brother CAD (coronary artery disease) [...] other ENT ENT: Positive for nasal discharge ("very little"), hoarseness and sore throat; No ear or [...] chest p (more content not included)... Normal [facility] Orthopedic Visit Reporton Orthopedic Visit Report [facility] [address] [place] [address] OFFICE VISIT Date of Service: 06/23/24 MR#: [id number] Acct: [id number] Name: LUIS RYAN Rep #: [id number] : 1950 Provider: Dr. Florin sultana MD Age/Sex: 74/F Location[place] [facility] Status: Signed Intake Vital Signs 06/04/24 15:30 [...] disease CHF Diabetes Brother Myocardial infarction from [place] age 51 Brother CAD (coronary artery disease) [...] pain. Patient was carrying a bucket last Saturday about 4 days ago now and there was sudden pain and letting go in the shoulder change in the contour a lump in the upper arm. Some swelling and pain there anteriorly over the long head of the biceps. No pop. Patient [id number]. Slowly getting better the patient is gradually [...] away fro (more content not included)... Normal [facility] Dexa Bone Density Studyon Dexa Bone Density Study [facility] Services [address] [place] [address] Dexa Bone Density Study MR#: [id number] Acct: [id number] Name: LUIS RYAN Rep #: [id number] : 1950 F 74 From: Alberto huddleston MD PCP: Dr. Zack Hinds MD Status: [facility] Study: Dexa Bone Density Study Date of Exam: 06/04/24 Exam# [id number] Ordering Dr: Erika Rodriguez TECHNICIAN [employer]QU[employer]MENT TECHNICIAN [employer]-C :[id number] STUDY: DUAL ENERGY X-RAY ABSORPTIOMETRY / DXA [...] CC: FREDA Rodriguez; Dr. 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 Normal [facility] Basophil percentageOrdered B y: Zack Hinds on 10-14-2023 Chloride [Moles/Vol] 105 mmol/L 98-107 [facility] Glucose [Mass/Vol] 87 mg/dL 74-106 [facility] Potassium [Moles/Vol] 3.7 mmol/L 3.5-5.1 [facility] Sodium [Moles/Vol] 140 mmol/L 136-145 [facility] Laboratory - Chemistry and C hemistry - challengeOrdered By: Zack Hinds on 10-14-2023 CO2 [Moles/Vol] 28.0 mmol/L 21.0-32.0 [facility] Urea nitrogen/Creatinine [Mass ratio] 15.0 mg/mg 10-20 [facility] No Panel InformationOrdered By: Zack Hinds on 10-14-2023 Estimated GFR (MDRD) Amer 100 mL/min >60 [facility] Comment on above: GFR Calc Estimated GFR (MDRD) Non-Af Amer 83 mL/min >60 [facility] Comment on above: Non- GFR Calc Free Triiodothyronine (T3) pg/dL 2.2 pg/mL 2.18-3.98 [facility] Serum or plasma calcium nancy urement (mass/volume)Ordered By: Zack Hinds on 10-14-2023 Calcium [Mass/Vol] 9.2 mg/dL 8.5-10.1 [facility] Serum or plasma creatinine m easurement (mass/volume)Ordered By: Zack Hinds on 10-14-2023 Creatinine [Mass/Vol] 0.73 mg/dL 0.55-1.02 [facility] Comment on above: The validity of the calculated GFR & GFRAA in patients over 70 years has not been determined. Clinical correlation is essential. Serum or plasma thyroid stim ulating hormone (TSH) measurement (units/volume)Ordered By: Zack Hinds on 10-14-2023 TSH Qn 1.24 uIU/mL 0.358-3.74 [facility] Serum or plasma urea nitroge n measurement (mass/volume)Ordered By: Zack Hinds on 10-14-2023 Urea nitrogen [Mass/Vol] 11 mg/dL 02-12 [facility] Thin prep Papanicolaou smear with manual screeningOrdered By: Zack Hinds on 10-14-2023 Thin prep Papanicolaou smear with manual screening 7 -15 [facility] Thin prep Papanicolaou smear with manual screening 0.96 ng/dL 0.76-1.46 [facility] No Panel InformationOrdered By: Zack Hinds on 2023 Urine Microalbumin/Creatin ine Ratio TNP [facility] Comment on above: Test not performed Thin prep Papanicolaou smear with manual screeningOrdered By: Zack Hinds on 2023 Thin prep Papanicolaou smear with manual screening < 5.0 mg/L NO RANGE EST. [facility] Urine creatinine measurement (mass/volume)Ordered By: Zack Hinds on 2023 Creatinine (U) [Mass/Vol] 85.80 mg/dL NO RANGE EST. [facility] Basophil percentageOrdered B y: Zack Hinds on 04-08-2023 Bilirubin [Mass/Vol] 0.60 mg/dL 0.20-1.00 [facility] Comment on above: For patients on eltr ombopag therapy, use of Dimension Kelly TBIL is not recommended. Chloride [Moles/Vol] 101 mmol/L 98-107 [facility] Cholesterol [Mass/Vol] 179 mg/dL <200 [facility] Comment on above: <200 mg/dL Desirable 200-240 mg/dL Borderline >240 mg/dL High Risk Glucose [Mass/Vol] 90 mg/dL 74-106 [facility] Potassium [Moles/Vol] 3.8 mmol/L 3.5-5.1 [facility] Protein [Mass/Vol] 6.9 g/dL 6.4-8.2 [facility] Sodium [Moles/Vol] 136 mmol/L 136-145 [facility] Triglyceride [Mass/Vol] 59 mg/dL <199 [facility] Comment on above: The drugs N-Acetylcy steine and Metamizole may falsely depress this assay.Serum Triglycerides Reference Interval Normal <150 mg/dL Borderline high 150 - 199 mg/dL High 200 - 499 mg/dL Very High > or = 500 mg/dL Laboratory - Chemistry and C hemistry - challengeOrdered By: Zack Hinds on 04-08-2023 ALP [Catalytic activity/Vol] 72 U/L 45-117 [facility] ALT [Catalytic activity/Vol] 23 U/L 13-56 [facility] CO2 [Moles/Vol] 27.0 mmol/L 21.0-32.0 [facility] Free T4 [Mass/Vol] 0.99 ng/dL 0.76-1.46 [facility] Globulin (S) [Mass/Vol] 3.3 g/dL 2.2-4.2 [facility] Urea nitrogen/Creatinine [Mass ratio] 19.6 mg/mg 10-20 [facility] No Panel InformationOrdered By: Zack Hinds on 04-08-2023 Estimated GFR (MDRD) Amer 89 mL/min >60 [facility] Comment on above: GFR Calc Estimated GFR (MDRD) Non-Af Amer 73 mL/min >60 [facility] Comment on above: Non- GFR Calc Free Triiodothyronine (T3) pg/dL 2.6 pg/mL 2.18-3.98 [facility] Thyroid Stimulating Hormone (TSH) 0.57 uIU/mL 0.358-3.74 [facility] Serum or plasma albumin nancy urement (mass/volume)Ordered By: Zack Hinds on 04-08-2023 Albumin [Mass/Vol] 3.6 g/dL 3.2-5.0 [facility] Serum or plasma albumin/glob ulin mass ratioOrdered By: Zack Hinds on 04-08-2023 Albumin/Globulin [Mass ratio] 1.1 {ratio} 0.9-2.4 [facility] Serum or plasma calcium nancy urement (mass/volume)Ordered By: Zack Hinds on 04-08-2023 Calcium [Mass/Vol] 8.7 mg/dL 8.5-10.1 [facility] Serum or plasma cholesterol in HDL measurement (mass/volume)Ordered By: Zack Hinds on 04-08-2023 Cholesterol in HDL [Mass/Vol] 77 mg/dL >40 [facility] Comment on above: The drugs N-Acetylcy steine and Metamizole may falsely depress this assay. Reference Range HDL <40 mg/dL Low HDL Cholesterol HDL >or= 60 mg/dL High HDL Cholesterol Serum or plasma cholesterol in VLDL measurement (mass/volume)Ordered By: Zack Hinds on 04-08-2023 Cholesterol in VLDL [Mass/Vol] 12 mg/dL 5-40 [facility] Serum or plasma creatinine m easurement (mass/volume)Ordered By: Zack Hinds on 04-08-2023 Creatinine [Mass/Vol] 0.82 mg/dL 0.55-1.02 [facility] Comment on above: The validity of the calculated GFR & GFRAA in patients over 70 years has not been determined. Clinical correlation is essential. Serum or plasma low density lipoprotein (LDL) cholesterol measurement (mass/volume)Ordered By: Zack Hinds on 04-08-2023 Cholesterol in LDL [Mass/Vol] 90 mg/dL 0-130 [facility] Serum or plasma urea nitroge n measurement (mass/volume)Ordered By: Zack Hinds on 04-08-2023 Urea nitrogen [Mass/Vol] 16 mg/dL 7-18 [facility] Thin prep Papanicolaou smear with manual screeningOrdered By: Zack Hinds on 04-08-2023 Thin prep Papanicolaou smear with manual screening 15 U/L 15-37 [facility] Thin prep Papanicolaou smear with manual screening 8 5-15 [facility] Absolute lymphocyte countOrd ered By: Dr. Saul on 12-03-2022 Lymphocytes Auto (Unsp spec) [#/Vol] 1.56 10*3/uL 0.83-4.51 [facility] Basophil percentageOrdered B y: Dr. Saul on 12-03-2022 Basophils/100 WBC (Bld) 1.0 % 0-1 [facility] Chloride [Moles/Vol] 104 mmol/L 98-107 [facility] Eosinophils/100 WBC (Bld) 1.7 % 0-5 [facility] Glucose [Mass/Vol] 86 mg/dL 74-106 [facility] Neutrophils (Bld) [#/Vol] 1.9 10*3/uL 2.0-7.7 [facility] Neutrophils/100 WBC (Bld) 45.9 % 47-70 [facility] Potassium [Moles/Vol] 3.7 mmol/L 3.5-5.1 [facility] Sodium [Moles/Vol] 141 mmol/L 136-145 [facility] WBC (Bld) [#/Vol] 4.1 10*3/uL 4.4-11.0 [facility] Basophil percentageOrdered B y: Jayda Haskins on 12-03-2022 Cholesterol [Mass/Vol] 191 mg/dL <200 [facility] Comment on above: <200 mg/dL Desirable 200-240 mg/dL Borderline >240 mg/dL High Risk Triglyceride [Mass/Vol] 87 mg/dL <199 [facility] Comment on above: The drugs N-Acetylcy steine and Metamizole may falsely depress this assay.Serum Triglycerides Reference Interval Normal <150 mg/dL Borderline high 150 - 199 mg/dL High 200 - 499 mg/dL Very High > or = 500 mg/dL Blood erythrocytes count (nu mber/volume)Ordered By: Dr. Saul on 12-03-2022 RBC (Bld) [#/Vol] 4.04 10*6/uL 4.2-5.4 [facility] Blood hemoglobin measurement (mass/volume)Ordered By: Dr. Saul on 12-03-2022 Hemoglobin (Bld) [Mass/Vol] 13.0 g/dL 12.0-15.0 [facility] Blood lymphocytes/100 leukoc ytesOrdered By: Dr. Saul on 12-03-2022 Lymphocytes/100 WBC (Bld) 38.2 % 19-41 [facility] Blood monocytes/100 leukocyt esOrdered By: Dr. Saul on 12-03-2022 Monocytes/100 WBC (Bld) 13.0 % 0-10 [facility] Blood platelet mean volumeOr dered By: Dr. Saul on 12-03-2022 Platelet mean volume (Bld) [Entitic vol] 10.1 fL 6.2-12.0 [facility] Determination of erythrocyte mean corpuscular volume (MCV)Ordered By: Dr. Saul on 12-03-2022 MCV (RBC) [Entitic vol] 98.3 fL 81-99 [facility] Hematocrit Auto (Bld) [Volum e fraction]Ordered By: Dr. Saul on 12-03-2022 Hematocrit (Bld) [Volume fraction] 39.7 % 37-47 [facility] Laboratory - Chemistry and C hemistry - challengeOrdered By: Dr. Saul on 12-03-2022 CO2 [Moles/Vol] 32.0 mmol/L 21.0-32.0 [facility] Urea nitrogen/Creatinine [Mass ratio] 23.2 mg/mg 10-20 [facility] Laboratory - Chemistry and C hemistry - challengeOrdered By: Dr. Hinds on 12-03-2022 Free T4 [Mass/Vol] 1.06 ng/dL 0.76-1.46 [facility] Laboratory - Hematology and Cell countsOrdered By: Dr. Saul on 12-03-2022 Erythrocyte distribution width (RBC) [Entitic vol] 44.5 fL 35.1-43.9 [facility] Erythrocyte distribution width (RBC) [Ratio] 12.3 % 11.6-14.6 [facility] Immature granulocytes/100 WBC (Bld) 0.200 % 0.0-0.9 [facility] Comment on above: IG% - Immature Granu locytes (promyelocytes, myelocytes and metamyelocytes) > 1% indicates that a LEFT SHIFT is Present. MCH (RBC) [Entitic mass] 32.2 pg 27.0-32.0 [facility] Nucleated RBC/100 WBC (Bld) [Ratio] 0 % 0-5 [facility] MCHC Auto (RBC) [Mass/Vol]Or dered By: Dr. Saul on 12-03-2022 MCHC (RBC) [Mass/Vol] 32.7 g/dL 32-36 [facility] No Panel InformationOrdered By: Dr. Saul on 12-03-2022 Estimated GFR (MDRD) Amer 108 mL/min >60 [facility] Comment on above: GFR Calc Estimated GFR (MDRD) Non-Af Amer 89 mL/min >60 [facility] Comment on above: Non- GFR Calc No Panel InformationOrdered By: Dr. Hinds on 12-03-2022 Free Triiodothyronine (T3) pg/dL 2.3 pg/mL 2.18-3.98 [facility] Thyroid Stimulating Hormone (TSH) 0.86 uIU/mL 0.358-3.74 [facility] Platelets bldOrdered By: Dr. Saul on 12-03-2022 Platelets (Bld) [#/Vol] 194 10*3/uL 150-450 [facility] Serum or plasma calcium nancy urement (mass/volume)Ordered By: Dr. Saul on 12-03-2022 Calcium [Mass/Vol] 9.4 mg/dL 8.5-10.1 [facility] Serum or plasma cholesterol in HDL measurement (mass/volume)Ordered By: Jayda Haskins on 12-03-2022 Cholesterol in HDL [Mass/Vol] 78 mg/dL >40 [facility] Comment on above: The drugs N-Acetylcy steine and Metamizole may falsely depress this assay. Reference Range HDL <40 mg/dL Low HDL Cholesterol HDL >or= 60 mg/dL High HDL Cholesterol Serum or plasma cholesterol in VLDL measurement (mass/volume)Ordered By: Jayda Haskins on 12-03-2022 Cholesterol in VLDL [Mass/Vol] 17 mg/dL 5-40 [facility] Serum or plasma creatinine m easurement (mass/volume)Ordered By: Dr. Saul on 12-03-2022 Creatinine [Mass/Vol] 0.69 mg/dL 0.55-1.02 [facility] Comment on above: The validity of the calculated GFR & GFRAA in patients over 70 years has not been determined. Clinical correlation is essential. Serum or plasma low density lipoprotein (LDL) cholesterol measurement (mass/volume)Ordered By: Jayda Haskins on 12-03-2022 Cholesterol in LDL [Mass/Vol] 96 mg/dL 0-130 [facility] Serum or plasma urea nitroge n measurement (mass/volume)Ordered By: Dr. Saul on 12-03-2022 Urea nitrogen [Mass/Vol] 16 mg/dL 7-18 [facility] Thin prep Papanicolaou smear with manual screeningOrdered By: Dr. Saul on 12-03-2022 Thin prep Papanicolaou smear with manual screening 5 5-15 [facility] Basophil percentageOrdered B y: Dr. Hinds on 08-13-2022 Bilirubin [Mass/Vol] 0.60 mg/dL 0.20-1.00 [facility] Comment on above: For patients on eltr ombopag therapy, use of Dimension Kelly TBIL is not recommended. Chloride [Moles/Vol] 102 mmol/L 98-107 [facility] Glucose [Mass/Vol] 102 mg/dL 74-106 [facility] Comment on above: Fasting Glucose resu lt from 100 to 125 mg/dL suggests IMPAIRED HOMEOSTASIS per A.D.A. criteria. Potassium [Moles/Vol] 3.9 mmol/L 3.5-5.1 [facility] Protein [Mass/Vol] 7.3 g/dL 6.4-8.2 [facility] Sodium [Moles/Vol] 138 mmol/L 136-145 [facility] Laboratory - Chemistry and C hemistry - challengeOrdered By: Dr. Hinds on 08-13-2022 ALP [Catalytic activity/Vol] 64 U/L 45-117 [facility] ALT [Catalytic activity/Vol] 29 U/L 13-56 [facility] CO2 [Moles/Vol] 30.0 mmol/L 21.0-32.0 [facility] Free T4 [Mass/Vol] 0.95 ng/dL 0.76-1.46 [facility] Globulin (S) [Mass/Vol] 3.5 g/dL 2.2-4.2 [facility] Urea nitrogen/Creatinine [Mass ratio] 18.9 mg/mg 10-20 [facility] No Panel InformationOrdered By: Dr. Hinds on 08-13-2022 Estimated GFR (MDRD) Amer 92 mL/min >60 [facility] Comment on above: GFR Calc Estimated GFR (MDRD) Non-Af Amer 76 mL/min >60 [facility] Comment on above: Non- GFR Calc Free Triiodothyronine (T3) pg/dL 1.9 pg/mL 2.18-3.98 [facility] Thyroid Stimulating Hormone (TSH) 2.50 uIU/mL 0.358-3.74 [facility] Vitamin D 25-Hydroxy 72.5 ng/mL [facility] Comment on above: Vitamin D 25(OH) Sta tus Range Deficiency <20 ng/mL (50nmol/L) Insufficiency 20 - 30 ng/mL (50 - 75 nmol/L) Sufficiency 30 - 100 ng/mL (75 - 250 nmol/L) Toxicity >100 ng/mL (>250 nmol/L) Serum or plasma albumin nancy urement (mass/volume)Ordered By: Dr. Hinds on 08-13-2022 Albumin [Mass/Vol] 3.8 g/dL 3.2-5.0 [facility] Serum or plasma albumin/glob ulin mass ratioOrdered By: Dr. Hinds on 08-13-2022 Albumin/Globulin [Mass ratio] 1.1 {ratio} 0.9-2.4 [facility] Serum or plasma calcium nancy urement (mass/volume)Ordered By: Dr. Hinds on 08-13-2022 Calcium [Mass/Vol] 9.2 mg/dL 8.5-10.1 [facility] Serum or plasma creatinine m easurement (mass/volume)Ordered By: Dr. Hinds on 08-13-2022 Creatinine [Mass/Vol] 0.80 mg/dL 0.55-1.02 [facility] Comment on above: The validity of the calculated GFR & GFRAA in patients over 70 years has not been determined. Clinical correlation is essential. Serum or plasma urea nitroge n measurement (mass/volume)Ordered By: Dr. Hinds on 08-13-2022 Urea nitrogen [Mass/Vol] 15 mg/dL 7-18 [facility] Thin prep Papanicolaou smear with manual screeningOrdered By: Dr. Hinds on 08-13-2022 Thin prep Papanicolaou smear with manual screening 17 U/L 15-37 [facility] Thin prep Papanicolaou smear with manual screening 6 5-15 [facility] Laboratory - Chemistry and C hemistry - challengeon 04-23-2022 Free T4 [Mass/Vol] 1.13 ng/dL 0.76-1.46 [facility] Work Phone: No Panel Informationon 04-23 Thyroglobulin Antibody < 1.0 IU/mL 0.0-0.9 [facility] Work Phone: Comment on above: Thyroglobulin Antibo dy measured by Talisha [employer] Thyroglobulin Level 76.9 ng/mL 1.5-38.5 [facility] Work Phone: Comment on above: According to the [facility],the reference interval for Thyroglobulin (TG) should berelated to euthyroid patients and not for patients whounderwent thyroidectomy. TG reference intervals for thesepatients depend on the residual mass of the thyroid tissueleft after surgery. Establishing a post-operative baselineis recommended. The assay limit of quantitation is 0.1ng/mLThyroglobulin measured by Talisha Richi ImmunometricAssayPerformed at: [employer] [facility] [id number] [place] [address] [id number] Director: Joby Hart PhD, Phone: [phone] Thyroid Stimulating Hormone (TSH) 0.46 uIU/mL 0.358-3.74 [facility] [facility] Work Phone: Basophil percentageon 2021 Cholesterol [Mass/Vol] 182 mg/dL <200 [facility] Work Phone: Comment on above: <200 mg/dL Desirable 200-240 mg/dL Borderline >240 mg/dL High Risk Cholesterol in LDL Direct as say [Mass/Vol]on 02-16-2022 Cholesterol in LDL [Mass/Vol] 115 mg/dL 0-99 [facility] Work Phone: Comment on above: Performed at: [employer] [facility] [address] [place] [address] [id number] Director: Joby Hart PhD, Phone: [phone] Laboratory - Chemistry and C hemistry - challengeon 02-16-2022 Free T4 [Mass/Vol] 1.25 ng/dL 0.76-1.46 [facility] Work Phone: Laboratory - Miscellaneous t estson 02-16-2022 Service comment (Unsp spec) [Interp] TNP [facility] Work Phone: Comment on above: Test not performed No Panel Informationon 02-16 Free Triiodothyronine (T3) pg/dL 2.5 pg/mL 2.18-3.98 [facility] Work Phone: Serum or plasma cholesterol in HDL measurement (mass/volume)on 02-16-2022 Cholesterol in HDL [Mass/Vol] 68 mg/dL >40 [facility] Work Phone: Comment on above: The drugs N-Acetylcy steine and Metamizole may falsely depress this assay. Reference Range HDL <40 mg/dL Low HDL Cholesterol HDL >or= 60 mg/dL High HDL Cholesterol Basophil percentageon 2021 Bilirubin [Mass/Vol] 0.70 mg/dL 0.20-1.00 [facility] Work Phone: Comment on above: For patients on eltr ombopag therapy, use of Dimension Kelly TBIL is not recommended. Chloride [Moles/Vol] 102 mmol/L 98-107 [facility] Work Phone: Cholesterol [Mass/Vol] 189 mg/dL <200 [facility] Work Phone: Comment on above: <200 mg/dL Desirable 200-240 mg/dL Borderline >240 mg/dL High Risk Glucose [Mass/Vol] 92 mg/dL 74-106 [facility] Work Phone: Potassium [Moles/Vol] 3.8 mmol/L 3.5-5.1 [facility] Work Phone: Protein [Mass/Vol] 7.1 g/dL 6.4-8.2 [facility] Work Phone: Sodium [Moles/Vol] 138 mmol/L 136-145 [facility] Work Phone: Triglyceride [Mass/Vol] 60 mg/dL <199 [facility] Work Phone: Comment on above: The drugs N-Acetylcy steine and Metamizole may falsely depress this assay.Serum Triglycerides Reference Interval Normal <150 mg/dL Borderline high 150 - 199 mg/dL High 200 - 499 mg/dL Very High > or = 500 mg/dL Laboratory - Chemistry and C hemistry - challengeon 02-12-2022 ALP [Catalytic activity/Vol] 66 U/L 45-117 [facility] Work Phone: ALT [Catalytic activity/Vol] 28 U/L 13-56 [facility] Work Phone: CO2 [Moles/Vol] 30.0 mmol/L 21.0-32.0 [facility] Work Phone: Free T4 [Mass/Vol] 1.20 ng/dL 0.76-1.46 [facility] Work Phone: Globulin (S) [Mass/Vol] 3.5 g/dL 2.2-4.2 [facility] Work Phone: Urea nitrogen/Creatinine [Mass ratio] 16.2 mg/mg 10-20 [facility] Work Phone: No Panel Informationon 02-12 Estimated GFR (MDRD) Amer 100 mL/min >60 [facility] Work Phone: Comment on above: GFR Calc Estimated GFR (MDRD) Non-Af Amer 82 mL/min >60 [facility] Work Phone: Comment on above: Non- GFR Calc Free Triiodothyronine (T3) pg/dL 2.7 pg/mL 2.18-3.98 [facility] Work Phone: Thyroid Stimulating Hormone (TSH) 0.18 uIU/mL 0.358-3.74 [facility] Work Phone: Urine Microalbumin/Creatin ine Ratio TNP [facility] Work Phone: Comment on above: Test not performed Serum or plasma albumin nancy urement (mass/volume)on 02-12-2022 Albumin [Mass/Vol] 3.6 g/dL 3.2-5.0 [facility] Work Phone: Serum or plasma albumin/glob ulin mass ratioon 02-12-2022 Albumin/Globulin [Mass ratio] 1.0 {ratio} 0.9-2.4 [facility] Work Phone: Serum or plasma calcium nancy urement (mass/volume)on 02-12-2022 Calcium [Mass/Vol] 9.1 mg/dL 8.5-10.1 [facility] Work Phone: Serum or plasma cholesterol in HDL measurement (mass/volume)on 02-12-2022 Cholesterol in HDL [Mass/Vol] 69 mg/dL >40 [facility] Work Phone: Comment on above: The drugs N-Acetylcy steine and Metamizole may falsely depress this assay. Reference Range HDL <40 mg/dL Low HDL Cholesterol HDL >or= 60 mg/dL High HDL Cholesterol Serum or plasma cholesterol in VLDL measurement (mass/volume)on 02-12-2022 Cholesterol in VLDL [Mass/Vol] 12 mg/dL 5-40 [facility] Work Phone: Serum or plasma creatinine m easurement (mass/volume)on 02-12-2022 Creatinine [Mass/Vol] 0.74 mg/dL 0.55-1.02 [facility] Work Phone: Comment on above: The validity of the calculated GFR & GFRAA in patients over 70 years has not been determined. Clinical correlation is essential. Serum or plasma low density lipoprotein (LDL) cholesterol measurement (mass/volume)on 02-12-2022 Cholesterol in LDL [Mass/Vol] 108 mg/dL 0-130 [facility] Work Phone: Serum or plasma urea nitroge n measurement (mass/volume)on 02-12-2022 Urea nitrogen [Mass/Vol] 12 mg/dL 7-18 [facility] Work Phone: Thin prep Papanicolaou smear with manual screeningon 02-12-2022 Thin prep Papanicolaou smear with manual screening 22 U/L 15-37 [facility] Work Phone: Thin prep Papanicolaou smear with manual screening 6 5-15 [facility] Work Phone: Thin prep Papanicolaou smear with manual screening < 5.0 mg/L NO RANGE EST. [facility] Work Phone: Urine creatinine measurement (mass/volume)on 02-12-2022 Creatinine (U) [Mass/Vol] 65.60 mg/dL NO RANGE EST. [facility] Work Phone: Vital Signs Date Time Vital Sign Value Performing Clinician Patito echeverria 04-23-2025 13:12-0400 Body height 157.[address] Zack Hinds MD Work Phone: [facility] 04-23-2025 13:12-0400 Body mass index (BMI) [Ratio] 28.1 kg/m2 Dr. Zack Hinds MD Work Phone: 7(308)662-875702 [place] [address] 04-23-2025 13:12-0400 Body weight 69.[address] Zack Hinds MD Work Phone: 3(088)986-934458 [place] [address] 04-23-2025 13:12-0400 Diastolic blood pressure 90 mm[Hg] Dr. Zack Hinds MD Work Phone: 5(646)511-132558 [place] [address] 04-23-2025 13:12-0400 Heart rate 66 /min Dr. Zack Hinds MD Work Phone: 2(129)525-548558 [place] [address] 04-23-2025 13:12-0400 Respiratory rate 18 /min Dr. Zack Hinds MD Work Phone: 0(966)508-807758 [place] [address] 04-23-2025 13:12-0400 Systolic blood pressure 139 mm[Hg] Dr. Zack Hinds MD Work Phone: 4(931)432-809058 [place] [address] 04-02-2025 14:30-0400 Body height 157.[address] Zack Hinds MD Work Phone: 2(011)151-369158 [place] [address] 04-02-2025 14:30-0400 Body mass index (BMI) [Ratio] 28 kg/m2 Dr. Zack Hinds MD Work Phone: 9(004)051-870658 [place] [address] 04-02-2025 14:30-0400 Body weight 69.[address] Zack Hinds MD Work Phone: 8(115)018-550058 [place] [address] 07-05-2024 11:08-0500 Body height 157.[address] Zack Hinds MD Work Phone: 9(822)551-514458 [place] [address] 07-05-2024 11:08-0500 Body mass index (BMI) [Ratio] 27.3 kg/m2 Dr. Zack Hinds MD Work Phone: 1(687)599-214058 [place] [address] 07-05-2024 11:08-0500 Body temperature 97.5 [degF] Dr. Zack Hinds MD Work Phone: 5(155)829-820058 [place] [address] 07-05-2024 11:08-0500 Body weight 67.[address] Zack Hinds MD Work Phone: [facility] 07-05-2024 11:08-0500 Diastolic blood pressure 78 mm[Hg] Dr. Zack Hinds MD Work Phone: [facility] 07-05-2024 11:08-0500 Heart rate 71 /min Dr. Zack Hinds MD Work Phone: [facility] 07-05-2024 11:08-0500 Respiratory rate 18 /min Dr. Zack Hinds MD Work Phone: [facility] 07-05-2024 11:08-0500 SaO2% (BldA) [Mass fraction] 98 % Dr. Zack Hinds MD Work Phone: [facility] 07-05-2024 11:08-0500 Systolic blood pressure 128 mm[Hg] Dr. aZck Hinds MD Work Phone: 1(349)500-794002 [place] [address] 06-23-2024 08:02-0500 Body mass index (BMI) [Ratio] 27.8 kg/m2 Dr. Zack Hinds MD Work Phone: [facility] 06-23-2024 08:02-0500 Body weight 66.[address] Zack Hinds MD Work Phone: [facility] 12-17-2022 07:45-0400 Body height 157.48 cm [facility] 12-17-2022 07:45-0400 Body weight 68.49 kg [facility] 12-14-2022 09:36-0400 Body mass index (BMI) [Ratio] 27.6 kg/m2 [facility] 11-30-2022 14:34-0400 Body weight 68.[address] Zack Hinds Work Phone: [facility] 11-30-2022 14:34-0400 Diastolic blood pressure 87 mm[Hg] Dr. Zack Hinds Work Phone: [facility] 11-30-2022 14:34-0400 Heart rate 82 /min Dr. Zack Hinds Work Phone: [facility] 11-30-2022 14:34-0400 Respiratory rate 18 /min Dr. Zack Hinds Work Phone: [facility] 11-30-2022 14:34-0400 Systolic blood pressure 138 mm[Hg] Dr. Zack Hinds Work Phone: [facility] 11-30-2022 09:46-0400 Body height 157.[address] Zack Hinds Work Phone: [facility] 07-10-2022 15:27-0500 Body height 157.[address] Zack Hinds Work Phone: [facility] 07-10-2022 15:27-0500 Body mass index (BMI) [Ratio] 26.9 kg/m2 Dr. Zack Hinds Work Phone: [facility] 07-10-2022 15:27-0500 Body weight 66.[address] Zack Hinds Work Phone: [facility] 12-05-2021 13:58-0400 Body height 157.[address] Zack Hinds Work Phone: [facility] Work Phone: 12-05-2021 13:58-0400 Body mass index (BMI) [Ratio] 28 kg/m2 Dr. Zack Hinds Work Phone: [facility] Work Phone: 12-05-2021 13:58-0400 Body weight 69.[address] Zack Hinds Work Phone: [facility] Work Phone: 12-05-2021 13:58-0400 Diastolic blood pressure 96 mm[Hg] Dr. Zack Hinds Work Phone: [facility] Work Phone: 12-05-2021 13:58-0400 Heart rate 73 /min Dr. Zack Hinds Work Phone: [facility] Work Phone: 12-05-2021 13:58-0400 Respiratory rate 16 /min Dr. Zack Hinds Work Phone: [facility] Work Phone: 12-05-2021 13:58-0400 Systolic blood pressure 171 mm[Hg] Dr. Zack Hinds Work Phone: [facility] Work Phone: Encounters Encounter Date Encounter Type Care Provider Facility Start: 05-14-2025 ambulatory Zack Hinds Facility:[facility] Start: 04-23-2025 End: 04-23-[address] Brenton Saul MD -[facility] Work Phone: Start: 04-23-2025 End: 04-23-[address] Zack Hinds MD Work Phone: -[facility] Start: 04-16-2025 End: 04-16-[address] Zack Hinds MD Work Phone: -Laboratory Start: 04-16-2025 End: 04-16-[address] Zack Hinds MD -Laboratory Work Phone: Start: 04-16-2025 End: 04-16-2025 ambulatory Zack Hinds Facility:[facility] Start: 04-02-2025 End: 04-02-[address] Brenton Saul MD -[facility] Start: 04-02-2025 End: 04-02-[address] Zack Hinds MD Work Phone: -[facility] Start: 01-18-2025 End: 01-18-[address] Zack Hinds MD Work Phone: [facility] Work Phone: Start: 01-18-2025 End: 01-18-2025 Patient encounter procedure Heidy Strickland PA -Laboratory Work Phone: Start: 01-18-2025 End: 01-18-2025 ambulatory Heidy MANZANO Facility:[facility] Start: 10-19-2024 End: 10-19-[address] Zack Hinds MD Work Phone: [facility] Work Phone: Start: 10-19-2024 End: 10-19-[address] Zack Hinds MD -Ultrasound, [facility] Work Phone: Start: 10-19-2024 End: 10-19-2024 ambulatory Zack Hinds Facility:[facility] Start: 10-08-2024 End: 10-08-[address] Zack Hinds MD Work Phone: [facility] Work Phone: Start: 10-08-2024 End: 10-08-[address] Zack Hinds MD -Laboratory, [place] Work Phone: Start: 10-08-2024 End: 10-08-2024 ambulatory Heidy MANZANO Facility:[facility] Start: 07-05-2024 End: 07-05-2024 Patient encounter procedure Eyad Knutson NP-[place] -[facility] Work Phone: Start: 07-05-2024 End: 07-05-2024 ambulatory Zack Hinds Facility:[facility] Start: 06-23-2024 End: 06-23-[address] Florin Calderón MD -[facility] Work Phone: Start: 06-23-2024 End: 06-23-2024 ambulatory Zack Hinds Facility:[facility] Start: 06-04-2024 End: 06-04-2024 ambulatory Zack Hinds Facility:[facility] Start: 10-14-2023 End: 10-14-2023 ambulatory [facility] Work Phone: Start: 10-14-2023 End: 10-14-2023 Patient encounter procedure [facility]-Laboratory, [place] Work Phone: Start: 2023 End: 2023 ambulatory [facility] Work Phone: Start: 2023 End: 2023 Patient encounter procedure [facility]-Laboratory, [facility] Work Phone: Start: 04-08-2023 End: 04-08-2023 ambulatory [facility] Work Phone: Start: 04-08-2023 End: 04-08-2023 Patient encounter procedure [facility] Work Phone: Start: 12-17-2022 End: 12-17-2022 Admission to same day surgery center [facility]/Special Procedures Work Phone: Start: 12-03-2022 End: 12-03-[address] Zack Hinds Work Phone: [facility] Work Phone: Start: 12-03-2022 End: 12-03-[address] Zack Hinds Work Phone: [facility] Start: 11-30-2022 End: 11-30-[address] Zack Hinds Work Phone: [facility] Start: 08-13-2022 End: 08-13-[address] Zack Hinds Work Phone: [facility] Work Phone: Start: 08-13-2022 End: 08-13-[address] Zack Hinds Work Phone: [facility] Start: 07-19-2022 End: 07-19-[address] Zack Hinds Work Phone: [facility] Start: 07-10-2022 End: 07-10-[address] Zack Hinds Work Phone: [facility] Start: 04-23-2022 End: 04-23-2022 ambulatory [facility] Work Phone: Start: 04-23-2022 End: 04-23-2022 Patient encounter procedure [facility] Start: 02-16-2022 End: 02-16-2022 Patient encounter procedure [facility] Start: 02-12-2022 End: 02-12-[address] Zack Hinds Work Phone: [facility] Start: 12-05-2021 End: 12-05-[address] Zack Hinds Work Phone: [facility] Procedures Date Procedure Procedure Detail Performing Clinician Start: 04-02-2025 Plain x-ray of pelvi s and lower extremity Dr. Zack Hinds MD Work Phone: Start: 10-19-2024 US scan of thyroid Dr. Zack Hinds MD Work Phone: Start: 12-03-2022 Plain chest X-ray Dr. Kalina Hinds Work Phone: Start: 07-19-2022 Plain X-ray of shoulder Dr. Zack Hinds Work Phone: Start: 07-10-[address] Jai Hinds Work Phone: Start: 07-10-2022 X-ray of both feet Dr. Zack Hinds Work Phone: Plan of Treatment Date Care Activity Detail Author Start: 04-02-2025 Plain x-ray of pelvi s and lower extremity HIP, UNI W/ Pelvis 2-3 Views [facility] Start: 04-02-2025 XR Pelvis and Hip Views [facility] Start: 11-30-2022 Evaluation of diagno stic study results [facility] Start: 07-31-2022 Patient referral [facility] Work Phone: Catheterization of l eft heart [facility] Patient referral [facility] Work Phone: Payers Date Payer Category Payer Self-pay [id number] 2024 Unknown [id number] 2024 Medicare [id number] 2024 Unknown [id number] Unknown [id number] Unknown [id number] Unknown [id number] 2.16.8 [id number] Unknown [id number] 2.16.8 [id number] Unknown [id number] 2.16.8 [id number] Unknown [id number] 2.16.8 [id number] Unknown [id number] 2.16.8 [id number] Unknown [id number] 2.16.8 [id number] Unknown [id number] 2.16.8 [id number] Unknown [id number] 2.16.8 [id number] Unknown [id number] 2.16.8 [id number] Unknown [id number] 2.16.8 [id number] Unknown [id number] 2.16.8 [id number] Social History Date Type Detail Facility Start: 09-19-2020 End: 12-17-2022 Tobacco smoking status RIIS Unknown if ever smoked [facility] Start: 1950 Sex Assigned At Female [facility] Start: 07-05-2024 [facility] Start: 10-18-2024 End: 10-24-2024 Sex Female (finding) [facility] Sex Female [facility] Clinical Notes 02-17-2021 to 04-23-2025 Note Date & Type Note Facility 04-23-2025 Progress note [facility] 04-02-2025 Evaluation note Diagnosis Onset Date Resolution Greater trochanteric bursitis of right hip acute April 02, 2025 2:30pm Right hip pain acute April 02, 2025 2:30pm Combined hyperlipidemia acute S eptember 2024 1:06pm Essential (primary) hypertension chronic April 23, 2025 1:06pm [facility] Work Phone: 1(414) 641-616209-05-2025 Progress [facility] [address] [place] [address] [address] [place] [address] OFFICE VISIT Date of Service: 04/02/25 MR#: [id number] Acct: [id number] Name: LUIS RYAN Rep #: [id number] : 1950 Provider: Dr. Ketan Calderón MD Age/Sex: 74/F [place] [facility] Status: Signed Intake Vital Signs 07/05/24 11:08 04/02/25 14:30 Height 5 ft 2 in 5 ft 2 in Weight: 153 lb BMI 28.0 Intake Visit Reasons: RIGHT THIGH Chief Complaint: Right thigh pain Accompanied by: Self Is patient in pain?: Yes Pain scale (1-10): 5 Allergies amoxicillin Adverse Reaction (Verified 04/02/25 14:33) Rash Medications ?Medication ?Instructions ?Recorded ?Confirmed ?Type aspirin 81 mg tablet,delayed 81 mg PO DAILY 05/22/18 0 04/02/25 History release (Adult Low Dose Aspirin) vitamin B complex 1 tab PO DAILY 05/22/18 09/12/20 History losartan 100 mg tablet 100 mg PO DAILY #90 tabs 03/1604/02/25 Rx calcium 600 mg (as 1 cap PO BID 12/01/20 History carbonate)-vitamin D3 12.5 mcg (500 unit) capsule (Calcium with Vit D3) hydrochlorothiazide 12.5 mg capsule 12.5 mg PO DAILY 0 12/01/20 04/02/25 History zinc 50 mg tablet 50 mg PO DAILY 12/01/2012/20 History cholecalciferol (vitamin D3) 125 125 mcg PO .COMPLEX 0 12/05/21 04/02/25 History mcg (5,000 unit) tablet turmeric 400 mg capsule 400 mg PO DAILY 12/05/2112/20 History levothyroxine 100 mcg tablet 100 mcg PO DAILY 11/30/22 04/02/25 History simvastatin 40 mg tablet See Rx Instructions .Route 0 09/07/24 04/02/25 Rx .COMPLEX #90 tabs Have you fallen in the past year?: No PFSH Medical History (Updated 04/02/25 @ 14:41 by Florin Calderón MD) Greater trochanteric bursitis of right hip Right hip pain Rupture of right long head biceps tendon [...] disease CHF Diabetes Brother Myocardial infarction from [place] age 51 Brother CAD (coronary artery disease) stents Sister CAD (coronary artery disease) stents Social History Smoking Status: Former smoker how long ago did patient quit smokin years ago alcohol intake: current alcohol intake frequency: 0-2 drinks per day Alcohol type: beer and wine substance use type: does not use caffeine: Yes (occasional cup of coffee) HPI RIGHT THIGH Details: This documentation accurately reflects the service provided and the decisions made by me, Dr. Kali MD 04/02/25 0892. Part of today?s visit was documented by [ ], acting as scribe. LUIS RYAN is a 74 year old F here today for R hip thigh pain, 3 weeks. This has been going on forabout a month. It is located on the lateral side of the hip somewhat going down aspect of the thighworse at night worse with activitieswas doing a lot of abductor muscle strengthening and manual labor activities no numbness tingling no pain with forced hip flexion. Never had this before. Has difficulties when taking anti-inflammatories with stomach irritation. Supplemental Info xr 2 view R hip - joint space well maintained, mild irregularity at the lateral aspect of GT Coding Level of Care Code Attention Ashly Diagnoses Right hip pain M25.551 Greater trochanteric bursitis of right hip M70.61 Comment [id number] and cpt inject hip tendon Assessment and Plan Assessment and Plan (1) Right hip pain: Status: Acute Plan: LUIS RYAN is a 74 year old F here today for R hip thigh pain, 3 weeks. Patient counseled as to the diagnosis prognosis and different treatment options of greater trochanteric bursitis. Rest ice anti-inflammatories activity modification stretching strengthening and cortisone injections. Patient will follow-up as needed. Pros and cons risks and benefits of right hip greater trochanter steroid injection were discussed. Patient wished to proceed. Risks include but not limited to infection, pain, stiffness, damage to other structures, neurovascular injury,wear further tear of the tendon and other structures such as the skin, bleeding,allergic reaction, acute flare reaction and other risks. Obtained informed consent for injection. Lateral aspect of the hip greater trochanter area was prepped with chlorhexidinesolution allowed tothoroughly dry over 3 minutes, patient lateral decubitus. Used Gebauer spray per bottle instructions. Pre procedure time out done. Using sterile technique, injected the right hip greater trochanter area with a 4cc 0.25% bupivacaine and 2cc 40 mg/mL kenalog. The patient tolerated the injectionwell without any noted complication. Bandage placed.Red flag symptoms were discussed such as redness, swelling, discharge, drainage, pain worsens or if they have any concerns to present to the ED or to callthe clinic immediately. (2) Greater trochanteric bursitis of right hip: Status: Acute Orders: Orders HIP, UNI W/ Pelvis 2-3 Views Today M25.551 - Pain in right hip, M70.61 - Trochanteric bursitis, right hip Clinical Quality Measures Falls Risk Screening/Assistive Devices Have you fallen in the past year?: No Ortho Exam General General: Yes no acute distress Neurologic: Yes alert and Yes oriented x3 Psychologic: Yes reasonable and appropriate Right Hip Skin: Yes CDI, No Ecchymosis and No soft tissue swelling flexion: 120 degrees extension: 10 degrees internal rotation @90 degree flexion: 15 degrees external rotation @90 degree extension: 40 degrees abduction: 40 degrees adduction: 20 degrees Impingement Test: 1 Special Tests: No pain with log roll, No iliopsoas snap, Yes TTP Greater Troch, No C sign, No TTP Greater sciatic notch, No FADIR and Yes Illiotibial band tenderness HIP: nvi, normal gait 04/02/25 1502 n MD> Date _ Florin Calderón MD Cosign Signature: Date (if applicable) CC: ~ [facility]09-05-2025 Progress note Author Florin Calderón [facility] Note Date/Time April 02, 2025 3:01pm [facility] [address] [place] [address] OFFICE VISIT Date of Service: 04/02/25 MR#: [id number] Acct: [id number] Name: LUIS RYAN Rep #: [id number] : 1950 Provider: Dr. Ketan Calderón MD Age/Sex: 74/F [place] [facility] Status: Signed Intake Vital Signs 07/05/24 11:08 04/02/25 14:30 Height 5 ft 2 in 5 ft 2 in Weight: 153 lb BMI 28.0 Intake Visit Reasons: RIGHT THIGH Chief Complaint: Right thigh pain Accompanied by: Self Is patient in pain?: Yes Pain scale (1-10): 5 Allergies amoxicillin Adverse Reaction (Verified 04/02/25 14:33) Rash Medications ?Medication ?Instructions ?Recorded ?Confirmed ?Type aspirin 81 mg tablet,delayed 81 mg PO DAILY 05/22/18 0 04/02/25 History release (Adult Low Dose Aspirin) vitamin B complex 1 tab PO DAILY 05/22/1812/20 History losartan 100 mg tablet 100 mg PO DAILY #90 tabs 03/1604/02/25 Rx calcium 600 mg (as 1 cap PO BID 12/01/20 History carbonate)-vitamin D3 12.5 mcg (500 unit) capsule (Calcium with Vit D3) hydrochlorothiazide 12.5 mg capsule 12.5 mg PO DAILY 0 12/01/20 04/02/25 History zinc 50 mg tablet 50 mg PO DAILY 12/01/2012/20 History cholecalciferol (vitamin D3) 125 125 mcg PO .COMPLEX 0 12/05/21 04/02/25 History mcg (5,000 unit) tablet turmeric 400 mg capsule 400 mg PO DAILY 12/05/2112/20 History levothyroxine 100 mcg tablet 100 mcg PO DAILY 11/30/22 04/02/25 History simvastatin 40 mg tablet See Rx Instructions .Route 0 09/07/24 04/02/25 Rx .COMPLEX #90 tabs Have you fallen in the past year?: No [facility] Medical History (Updated 04/02/25 @ 14:41 by Florin Calderón MD) Greater trochanteric bursitis of right hip Right hip pain Rupture of right long head biceps tendon [...] disease CHF Diabetes Brother Myocardial infarction from [place] age 51 Brother CAD (coronary artery disease) stents Sister CAD (coronary artery disease) stents Social History Smoking Status: Former smoker how long ago did patient quit smokin years ago alcohol intake: current alcohol intake frequency: 0-2 drinks per day Alcohol type: beer and wine substance use type: does not use caffeine: Yes (occasional cup of coffee) HPI RIGHT THIGH Details: This documentation accurately reflects the service provided and the decisions made by me, Dr. Florin Calderón MD 04/02/25 0835. Part of today?s visit was documented by [ ], acting as scribe. LUIS RYAN is a 74 year old F here today for R hip thigh pain, 3 weeks. This has been going on for about a month. It is located on the lateral side of the hip somewhat going down aspect of the thigh worse at night worse with activitieswas doing a lot of abductor muscle strengthening and manual labor activities no numbness tingling no pain with forced hip flexion. Never had this before. Has difficulties when taking anti-inflammatories with stomach irritation. Supplemental Info xr 2 view R hip - joint space well maintained, mild irregularity at the lateral aspect of GT Coding Level of Care Code Attention Engineering Intern Diagnoses Right hip pain M25.551 Greater trochanteric bursitis of right hip M70.61 Comment 04642 and cpt inject hip tendon Assessment and Plan Assessment and Plan (1) Right hip pain: Status: Acute Plan: LUIS RYAN is a 74 year old F here today for R hip thigh pain, 3 weeks. Patient counseled as to the diagnosis prognosis and different treatment options of greater trochanteric bursitis. Rest ice anti-inflammatories activity modification stretching strengthening and cortisone injections. Patient will follow-up as needed. Pros and cons risks and benefits of right hip greater trochanter steroid injection were discussed. Patient wished to proceed. Risks include but not limited to infection, pain, stiffness, damage to other structures, neurovascular injury,wear further tear of the tendon and other structures such as the skin, bleeding,allergic reaction, acute flare reaction and other risks. Obtained informed consent for injection. Lateral aspect of the hip greater trochanter area was prepped with chlorhexidinesolution allowed to thoroughly dry over 3 minutes, patient lateral decubitus. Used Gebauer spray per bottle instructions. Pre procedure time out done. Using sterile technique, injected the right hip greater trochanter area with a 4cc 0.25% bupivacaine and 2cc 40 mg/mL kenalog. The patient tolerated the injectionwell without any noted complication. Bandage placed.Red flag symptoms were discussed such as redness, swelling, discharge, drainage, pain worsens or if they have any concerns to present to the ED or to call the clinic immediately. (2) Greater trochanteric bursitis of right hip: Status: Acute Orders: Orders HIP, UNI W/ Pelvis 2-3 Views Today M25.551 - Pain in right hip, M70.61 - Trochanteric bursitis, right hip Clinical Quality Measures Falls Risk Screening/Assistive Devices Have you fallen in the past year?: No Ortho Exam General General: Yes no acute distress Neurologic: Yes alert and Yes oriented x3 Psychologic: Yes reasonable and appropriate Right Hip Skin: Yes CDI, No Ecchymosis and No soft tissue swelling flexion: 120 degrees extension: 10 degrees internal rotation @90 degree flexion: 15 degrees external rotation @90 degree extension: 40 degrees abduction: 40 degrees adduction: 20 degrees Impingement Test: 1 Special Tests: No pain with log roll, No iliopsoas snap, Yes TTP Greater Troch, No C sign, No TTP Greater sciatic notch, No FADIR and Yes Illiotibial band tenderness HIP: nvi, normal gait 04/02/25 1502 <Electronically signed by Florin lundberg MD> Date _ Florin Calderón MD Cosigner Signature: Date (if applicable) CC: ~ [place] [employer] Work Phone: 1(963) 449-560003-24-2025 Radiology Diagnostic study note [facility] Imaging Services [address] [place], [place] [address] Thyroid MR#: [id number] Acct: [id number] Name: LUIS RYAN Rep #: [id number] : 1950 F 74 From: Alta Hernadez MD PCP: Dr. Zack Hinds MD Status: [facility] CLI Study:Thyroid Date of Exam: 10/19/24 Exam# [id number] Ordering Dr: Jorge Hinds MD PROCEDURE: THYROID [...] Further follow-up imaging not indicated. Reading [facility] CC: Dr. Zack Hinds MD ~ Technology Lab Teacher: Signed [facility]12-08-2024 Evaluation note* Diagnosis Onset Date Resolution Status Admit Date Pharyngitis acute July 05, 2024 10:18am [facility] Work Phone: 1(653) 657-173411-26-2024 Evaluation note* Diagnosis Onset Date Resolution Status Admit Date Rupture of right long head biceps tendon acute June 23, 2 024 7:54am Pharyngitis acute July 05, 2024 10:18am [facility] Work Phone: 1(425) 902-832209-21-2021 NotePatient Outreach ([facility]) CONNORLUIS ([id number]) 1950 F Date Time Provider Department 04/18/21 PETE OLIVEIRA During your visit today, we recorded the following information about you: Pete Oliveira MA 04/19/2021 2:46 PM Addendum POPULATION HEALTH NAVIGATION OUTREACH Action/FYI [facility] Luis returned my call. She has a [...] future healthcare decisions with a power of senior trial attorney, living will, or advance directives? Yes. Have you shared those records with your doctor? Yes Referrals: N/A Message Sent to Practice: NO Navigation Signature: Pete Oliveira MA April 18, 2021 9:42 AM Allergies As of Date: 04/18/2021 Noted Allergy Reaction AMOXICILLIN 02/21/2008 2 - Rash ANCEF (CEFAZOLIN) 01/22/2014 2 - Rash Date Reviewed: 01/19/2020 Reviewed by: Elena ([facility]) TRUNG Valadez - Fully Assessed Reason for [...] of height [R29.890] 01/11/2020 Encounter Status:Closed by PETE OLIVEIRA on 04/18/21[facility]09-21-2021 NoteHNO ID: [id number] Author: Pete Oliveira MA Service: ? 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 She has a [...] future healthcare decisions with a power of senior trial attorney, living will, or advance directives? Yes. Have you shared those records with your doctor? Yes Referrals: N/A Message Sent to Practice: NO Navigation Signature: Pete Oliveira MA April 18, 2021 9:42 [facility]07-23-2021 NotePatient Outreach ([facility]) LUIS RYAN ([id number]) 1950 F Date Time Provider Department 02/17/21 LUIS A CRAMER III [facility] During your visit today, we recorded the following information about you: Allergies As of Date: 02/17/2021 Noted Allergy Reaction AMOXICILLIN 02/21/2008 2 - Rash ANCEF (CEFAZOLIN) 01/22/2014 2 - Rash Date Reviewed: 01/19/2020 Reviewed by: Elena ([facility]) TRUNG Valadez - Fully Assessed Visit Diagnosis:Encounter for screening mammogram for breast cancer [Z12.31] Order(s):[facility] SCREENING [[id number]] Order #: [id number] FUTURE Prescriptions as of 02/20/2021 - Hydrochlorothiazide [...] of height [R29.890] 01/11/2020 Encounter Status:Closed by readeo PRODUSER on 02/20/21[facility] Evaluation note* Diagnosis Onset Date Resolution Status Disorder of lipoid metabolism chronic Essential (primary) hypertension [facility] Work Phone: evaluation noteNo assessment information available [facility] Work Phone: evaluation note* Diagnosis Onset Date Resolution Status Arthritis of left subtalar joint acute Left ankle pain acute Calcific tendinitis of left shoulder acute Left shoulder pain acute [facility] Work Phone: evaluation note* Diagnosis Onset Date Resolution Status Chest discomfort acute Essential (primary) hypertension chronic [facility] Work Phone: Evaluation note* Diagnosis Onset Date Resolution Status Admit Date Greater trochanteric bursiti s of right hip acute April 02, 2 025 2:30pm Right hip pain acute April 02, 2025 2:30pm [place] [facility] Work Phone: Progress note Author Brenton Saul [facility] Note Date/Time April 23, 2025 1:45pm [facility] [address] [place] [address] OFFICE VISIT Date of Service: 04/23/25 MR#: [id number] Acct: [id number] Name: LUIS RYAN Rep #: [id number] : 1950 Provider: Dr. Ashley Saul MD Age/Sex: 75/F Location: [facility] Status: Signed HPI HPI History of Present Illness Details: This is a 75-year-old female with a strong family history of [...] is to continue with aggressive medical therapy. She does not quite like the rosuvastatin therapy. 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 Required: No Accompanied by: Self Is patient in pain?: No Allergies amoxicillin Adverse Reaction (Verified 04/23/25 13:12) Rash Medications ?Medication ?Instructions ?Recorded ?Confirmed ?Type aspirin 81 mg tablet,delayed 81 mg PO DAILY 05/22/18 0 04/23/25 History release (Adult Low Dose Aspirin) vitamin B complex 1 tab PO DAILY 05/22/18/01/20 History losartan 100 mg tablet 100 mg PO DAILY #90 tabs 03/1604/23/25 Rx calcium 600 mg (as 1 cap PO BID 12/01/20 History carbonate)-vitamin D3 12.5 mcg (500 unit) capsule (Calcium with Vit D3) hydrochlorothiazide 12.5 mg capsule 12.5 mg PO DAILY 0 12/01/20 04/23/25 History zinc 50 mg tablet 50 mg PO DAILY 12/01/2003/30 History turmeric 400 mg capsule 400 mg PO DAILY 12/05/21 History levothyroxine 100 mcg tablet 100 mcg PO DAILY 11/30/22 04/23/25 History cholecalciferol (vitamin D3) 125 125 mcg PO QDAY 04/2304/23/25 History mcg (5,000 unit) tablet simvastatin 40 mg tablet 40 mg PO QDAY #90 tabs 04/2304/23/25 Rx Have you fallen in the past year?: No [facility] Medical History Greater trochanteric bursitis of right hip Right hip pain Rupture of right long head biceps tendon [...] disease CHF Diabetes Brother Myocardial infarction from [place] age 51 Brother CAD (coronary artery disease) stents Sister CAD (coronary artery disease) stents Social History Smoking Status: Former smoker how long ago did patient quit smokin years ago alcohol intake: current alcohol intake frequency: 0-2 drinks per day Alcohol type: beer and wine substance use type: does not use caffeine: Yes (occasional cup of coffee) ROS Const Const: Negative for fatigue or weakness ENT ENT: Negative for dizziness or balance problems Cardio Chest Pain: No Palpitations: No Edema: None Muscle aches with walking: None Resp Respiratory: Negative for SOB with activity, SOB at rest or SOB orthopnea\\SOB lying down GI GI: Negative nausea, vomiting or heartburn Musc Musc: Negative for muscle weakness or balance problems Neuro Neuro: Negative for dizziness, lightheadedness, near syncope, syncope or weakness Endo Endo: Negative for fatigue Cardiology Exam Const Appearance: cooperative, healthy appearing, no acute distress, well developed and well groomed Nutritional Appearance: average body habitus and well nourished Orientation: alert, awake and oriented x3 Head Head: normal to inspection, normocephalic and atraumatic Ears: hearing grossly normal bilaterally and external ears normal Nose: external nose normal, nares normal, nasal mucous membranes and turbinates normal, septum normal and no nasal discharge Face and Sinus: face symmetric Mouth: oral mucosae normal, tongue normal, oropharynx normal and moist mucous membranes Teeth and gingiva: dentition normal Throat: posterior oropharynx normal, tonsils normal and uvula midline Eyes General: appearance normal, both eyes and all related structures Eyelids: eyelids normal Conjunctivae: conjunctivae normal Pupils: PERRL, normal by confrontation and accommodation normal EOM: EOM intact bilaterally Neck Neck: normal visual inspection, trachea midline and no JVD JVD: +5 Carotids: normal carotid upstroke and bounding pulses Chest Chest inspection: normal inspection of the chest, symmetric chest movement and normal respiratory effort Auscultation: Bilateral: Clear to Auscultation Cardio Palpation: normal PMI Rate: regular rate Rhythm: regular rhythm Heart sounds: S1 normal, S2 normal and normal, physiologic split S2; Negative rub, gallop or murmur GI GI: normal to inspection, soft, no hepatosplenomegaly and bowel sounds present Neuro General: patient alert, patient awake, patient oriented x3, gait normal, moves all extremities and no focal sensory deficit Skin Skin: no rashes or lesions noted Extremities Pulses: Normal: Right Femoral Pulse, Left Femoral Pulse, Right Dorsalis Pedis Pulse, Left Dorsalis Pedis Pulse, Right Posterior Tibial Pulse, Left Posterior Tibial Pulse, Right Radial Pulse and Left Radial Pulse Lower Extremity Edema: None: Bilateral Musculoskel Musculoskeletal: No joint tenderness Psych Psychological: normal affect Supplemental Info Supplemental Information Labs: LDL Cholesterol, (0-130) 73 mg/dL HDL Cholesterol, (40-) 72 mg/dL Cholesterol, (<=200) 185 mg/dL Triglycerides, (-199) 47 mg/dL Diagnostics: Electrocardiogram Stress Echocardiogram Cardiac Catheterization Chest X-Ray Coronary Angiography CT Past Visits: Cardiology Visit Today Assessment and Plan Assessment and Plan (1) Essential (primary) hypertension: Status: Chronic Plan: Her blood pressure is under good control at this time I would not recommend thatwe make any major changes. Her blood flow screen was also unremarkable as she remember. Thank you for allowing me to participate in the care of your patient. Please don't hesitate to call if any issues arise. (2) Combined hyperlipidemia: Status: Acute Plan: She does have a history of hyperlipidemia. She says that she does not like the effect of the rosuvastatin and so she will go back on simvastatin 40 mg a day and have a lipid profile performed in 2 to 3 months. Depending on the findings further recommendations will be made. You do remember that she underwent a cardiac catheterization which demonstrated essentially normal coronary arteries. Her aspirin will also be down to 3 times a week Thank you for allowing me to participate in the care of your patient. Please don't hesitate to call if any issues arise. 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 Zack Hinds MD ~ [facility] Work Phone: Reason for referral (narrative)No reason for referral information [facility] Work Phone: Summary Purpose Family History No Family History Records Found Relationship Condition Age at Onset Recorded Date/T jyothi father Cardiac disease Unknown Diabetes mellitus Unknown brother Myocardial infarction Unknown brother Coronary artery disease Unknown sister Coronary artery disease Unknown Advance Directives No Advanced Directives Records Found Advance Directive Response Recorded Date/ Time Living Will Yes December 22, 2016 1 1:35pm Power of Video Editing Internship Yes December 22, 2016 11:35pm Advance Directive Response Recorded Date/ Time Living Will Yes July 09 10:59am Power of Video Editing Internship Yes July 09, 2022 10:59am Advance Directive Response Recorded Date/ Time Living Will Yes July 09 11:59am Power of Video Editing Internship Yes July 09, 2022 11:59am Advance Directive Response Recorded Date/ Time Advance Directives on File Yes November 272022 7:45am Name of Medical Power of Video Editing Internship Antoni Snowden-br other December 17, 2022 7:45am Advance Directives Yes December 17 7:45am Living Will Yes December 17, 2022 7 :45am Power of Video Editing Internship Yes December 17, 2022 7:45am Advance Directive Response Recorded Date/ Time Advance Directives Yes December 17 7:45am Living Will Yes December 17, 2022 7 :45am Power of Video Editing Internship Yes December 17, 2022 7:45am Advance Directive Response Recorded Date/ Time Advance Directives Yes July 05, 2024 10:35am Advance Directive Response Recorded Date/ Time Living Will Yes December 17, 2022 7 :45am Do you have a Healthcare Power of Video Editing Internship? 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- AND DR SAUL/2 [...] Date Pharyngitis July 05, 2024 1 0:18am Chief Complaint Admit Date 2 ORDERING JOSH October 08, 2024 8:0 7am L 1CM CYST/NODULE October 19, 2024 11: 46am INT LABS January 18, 2025 8:19 am Chief Complaint Admit Date INT LABS January 18, 2025 8:19 am RIGHT THIGH April 02, 2025 2:30pm Room 1 April 02, 2025 2:44pm Reason for Visit Admit Date Greater trochanteric bursitis of right h ip April 02, 2025 2:30pm Right hip pain April 02, 2025 2:30pm Chief Complaint Admit Date INT LABS January 18, 2025 8:19 am RIGHT THIGH April 02, 2025 2:30pm Room 1 April 02, 2025 2:44pm INT LABS April 16, 2025 8:41am 15 m fu w SUPERVISOR BROADLOOM per [employer]OR BROADLOOM April 23 1:06pm Reason for Visit Admit Date Greater trochanteric bursitis of right h ip April 02, 2025 2:30pm Right hip pain April 02, 2025 2:30pm Combined hyperlipidemia April 23, 2025 1:06pm Essential (primary) hypertension Sept2024 1:06pm Additional Source Comments INFORMATION SOURCE (unrecogn ized section and content) DATE CREATED AUTHOR 09/20/2021 [facility] DATE CREATED AUTHOR KELECHI IVEY 05/07/2025 [facility] Goals (unrecognized section and [...] 2024 End: July 05, 2024 Eyad Knutson TECHNICIAN [employer], TECHNICIAN [employer]-C Attending Provider Active S tart: July 05, [...] October 19, 2024 End: October 19, 2024 Team Status: Inactive Member Role Status Dates Dr. Zack Hinds MD Primary Care Provider Active Start: January 18, 2025 End: January 18, 2025 Heidy Strickland PA, PA Attending Provider Active Start: January 18, 2025 End: January 18, 2025 Heidy Strickland PA, PA Referring Provider Active Start: January 18, 2025 End: January 18, 2025 Team Status: Active Member Role/Relationship Status Dates Dr. Zack Hinds MD Primary Care Provider Active Team Status: Inactive Member Role/Relationship Status Dates Dr. Zack Hinds MD Primary Care Provider Active Start: January 18, 2025 End: January 18, 2025 Heidy Strickland PA, PA Attending Provider Active Start: January 18, 2025 End: January 18, 2025 Heidy Strickland PA, PA Referring Provider Active Start: January 18, 2025 End: January 18, 2025 Team Status: Active Member Role/Relationship Status Dates Dr. Zack Hinds MD Primary Care Provider Active Start: April 02, 2025 Dr. Zack Hinds MD Referring Provider Active St art: April 02, 2025 Florin Calderón MD Attending Provider Active St art: April 02, 2025 Team Status: Inactive Member Role/Relationship Status Dates Dr. Zack Hinds MD Primary Care Provider Active Start: April 02, 2025 End: April 02, 2025 Dr. Brenton Saul MD Attending Provider Active S tart: April 02, 2025 End: April 02, 2025 Team Status: Inactive Member Role/Relationship Status Dates Dr. Zack Hinds MD Primary Care Provider Active Start: April 02, 2025 End: April 02, 2025 Dr. Zack Hinds MD Referring Provider Active St art: April 02, 2025 End: April 02, 2025 Florin Calderón MD Attending Provider Active St art: April 02, 2025 End: April 02, 2025 Team Status: Active Member Role/Relationship Status Dates Dr. Zack Hinds MD Primary care physician Active Team Status: Inactive Member Role/Relationship Status Dates Dr. Zack Hinds MD Primary care physician Active Start: January 18, 2025 End: January 18, 2025 Heidy MANZANO, PA Attending physician Active Start: January 18, 2025 End: January 18, 2025 Heidy Strickland PA, PA Referring Provider Active Start: January 18, 2025 End: January 18, 2025 Team Status: Inactive Member Role/Relationship Status Dates Dr. Zack Hinds MD Primary care physician Active Start: April 02, 2025 End: April 02, 2025 Dr. Zack Hinds MD Referring Provider Active St art: April 02, 2025 End: April 02, 2025 Florin Calderón MD Attending physician Active S tart: April 02, 2025 End: April 02, 2025 Team Status: Inactive Member Role/Relationship Status Dates Dr. Zack Hinds MD Primary care physician Active Start: April 02, 2025 End: April 02, 2025 Dr. Brenton Saul MD Attending physician Active Start: April 02, 2025 End: April 02, 2025 Team Status: Inactive Member Role/Relationship Status Dates Dr. Zack Hinds MD Primary care physician Active Start: April 16, 2025 End: April 16, 2025 Dr. Zack Hinds MD Attending physician Active S tart: April 16, 2025 End: April 16, 2025 Dr. Zack Hinds MD Referring Provider Active St art: April 16, 2025 End: April 16, 2025 Dr. Brenton Saul MD Nurse Practitioner Active S tart: April 16, 2025 End: April 16, 2025 Team Status: Inactive Member Role/Relationship Status Dates Dr. Zack Hinds MD Primary care physician Active Start: April 23, 2025 End: April 23, 2025 Dr. Zack Hinds MD Referring Provider Active St art: April 23, 2025 End: April 23, 2025 Dr. Brenton Saul MD Attending physician Active Start: April 23, 2025 End: April 23, 2025 FOR RECORDS PERTAINING TO PATIENTS WHO ARE [...] BE BASED ON THE PRIMARY CLINICAL RECORDS. [facility] [employer] provides no warranty or guarantee of the accuracy or completeness of information in this document.
== END | disposition home or self-care (01) ==
LOC: OPBI 14:16
PROVIDERS: PCP Family Medicine; Referring Provider Family Medicine; Visit Provider Family Medicine
DX: Z12.31 Encounter for screening mammogram for malignant neoplasm of breast (principal)
CPT/HCPCS: 77063; 77067

== ENCOUNTER → 2025-07-05 | Outpatient (CLI) | payer MEDICARE, OTHER, SELFPAY ==
[2025-07-05 11:11] LABS: Cholesterol 208 mg/dL (<=200); Low Density Lipoprotein Calc. 115 mg/dL; Triglycerides 81 mg/dL; Very Low Density Lipoprotein 16 mg/dL (5-40); cholesterol:hdl ratio screen 2.66
== END | disposition home or self-care (01) ==
LOC: MTLAB 08:36
PROVIDERS: PCP Family Medicine; Referring Provider Internal Medicine Cardiovascular Disease; Visit Provider Internal Medicine Cardiovascular Disease
DX: E78.5 Hyperlipidemia, unspecified (principal)
CPT/HCPCS: 36415; 80061